=== PATIENT | male | born 1950 | race Caucasian/White ===

== ENCOUNTER 2019-08-27 06:00 | Outpatient (RCR) | payer MEDICARE, MEDICAID, SELFPAY | END 2019-09-07 00:01 | LOC: WPT 06:00 | PROVIDERS: Family Provider Family Medicine; Visit Provider Psychiatry & Neurology Neurology | DX: G61.0 Guillain-Barre syndrome (principal) | CPT/HCPCS: 97110; 97163 ==

== ENCOUNTER → 2019-12-31 08:00 | Outpatient (BNVA) | payer MEDICARE, MEDICAID, SELFPAY | PROVIDERS: Family Provider Family Medicine; PCP Family Medicine; Visit Provider Nurse Practitioner Psychiatric/Mental Health | DX: F33.41 Major depressive disorder, recurrent, in partial remission (principal); F41.8 Other specified anxiety disorders | CPT/HCPCS: 99213 ==

== ENCOUNTER 2020-05-03 14:20 | Outpatient (CLI) | payer MEDICARE, MEDICAID, SELFPAY ==
--- NOTE | 2020-05-03 14:31 | US_ITS ---
WS: [id number] ULTRASOUND RENAL TECHNIQUE: Ultrasound examination of both kidneys. CLINICAL INFORMATION: bilateral hydronephrosis COMPARISON: None. FINDINGS: Kidneys difficult to visualize bilaterally. Bilateral increased parenchymal echogenicity co nsistent with chronic medical renal disease. Mild bilateral pelvocaliectasis and hydronephrosis. Smal l amount of debris in the bladder which is otherwise normal. RIGHT: Cortical thickness: 1.8 c the m; Normal. Hydronephrosis: Mild Perinephric fluid: None. Right kidney measures: 11.3 cm x 5.5 cm x 5.6 cm. LEFT: Cortical thickness: 1.6 cm; Normal. Hydronephrosis: Mild Perinephric fluid: None. Left kidney measures: 10.7 cm x 5.3 cm x 6.3 cm. Aorta not well visualized due to bowel gas. US/US renal BI* [id number] IMPRESSION: 1. Both kidneys are difficult to visualize with mild pelvocaliectasis and hydr onephrosis. This can be further evaluated with CT abdomen pelvis. 2. Echogenic renal parenchyma likely due to chronic medical renal disease. 3. Small amount of echogenic debris within the bladder which is otherwise norm al.
== END 2020-05-03 14:21 | disposition home or self-care (01) ==
LOC: RAD 14:28
PROVIDERS: Family Provider Family Medicine; PCP Family Medicine; Visit Provider Urology
DX: N13.30 Unspecified hydronephrosis (principal); R82.81 Pyuria; N31.9 Neuromuscular dysfunction of bladder, unspecified
CPT/HCPCS: 76770; 80053; 81001; 87077; 87086; 87186

== ENCOUNTER 2020-07-26 21:32 | Inpatient (IN) | payer MEDICARE, MEDICAID, SELFPAY ==
[2020-07-26 21:35] VITALS: BP 111/57; PULSE 83; RESP 16; TEMP 35.8; O2SAT 100; BMI 27.1
--- NOTE | 2020-07-26 22:51 | P.HP_ITS ---
Providers/Chief Complaint Primary Care Provider: David Austin Chief Complaint: SOB History of Present Illness Mirza Rodrigues is a 70 year old male who has history of dementia, multiple comorbid conditions was sent to the [facility] for hypotension. 1 L normal saline given for blood pressure 80/40 which improved blood pressure 215-58, he was saturating well on 4 L nasal cannula 100% with heart rate ranging between 80-90, he was given ceftriaxone and azithromycin for possible pneumonia On arrival to our ER patient was complaining of left hip pain, right arm pain, shortness of breath and chest discomfort on coughing, he was saturating well on room air, normal hemodynamics, he is not a good historian, however he was able to tell me that he has been experiencing extreme cold, his left hip area is hu rting, and it is difficult for him to swallow food. He has been noticing productive cough and shortness of breath. I gave him grape juice, because he was extremely dehydrated, his lips were extremely dry he was not able to talk properly, however he started coughing after drinking grape juice and endorsed that he is not able to breathe, his status did not change at all. I noticed left-sided facial droop, requested CT head without contrast because of dysphagia and left-sided facial droop. I also requested left hip x-ray I called group home to get the report who endorsed that at baseline he would be alert to person, he normally eats on his own but recently has been requiring 2 person assist for ambulation, no vomiting diarrhea or falls at the group home, he was recently started on doxycycline for pneumonia on 07/24, he recently finished Keflex for UTI as well, he was tested for Covid on 07/19 which was negative, however his roommate is Covid positive, he was put in the same room a fter negative Covid test. His influenza type B came back positive, his CODE STATUS is not clearly defined, documents are stating DNR/DNI status, I called group home to clarify, they also have both DNR and full code mentioned in the records Diagnostics from the outside facility White count 5.2 Hemoglobin 10.4 Platelets 234 EKG shows sinus rhythm heart rate 86 UA: Slightly cloudy nitrites negative, trace leukocyte Estrace positive, pH 5, special gravity 1015, blood negative Sodium 131 Potassium 5.4 Bicarb 20 Creatinine 2.9 Bilirubin 8.2 Alk phos was 136 anion gap 11 BUN 83 Chloride 100 Magnesium 2.7 BNP 500 Baseline troponin 50 admission 100 Lactic acid 0.6 2-hour troponin 91 Medications at N home Patient is taking Tylenol 650 mg Zofran 4 mg every 4 as needed Loratadine 10 mg daily Ropinirole 0.25 mg daily Gabapentin 100 mg daily 3 times a day Melatonin 500 mg daily Trazodone 50 mg at bedtime Aspirin 81 mg daily DuoNebs as needed basis Lactulose 4 times daily Doxycycline 100 mg twice daily Keppra 500 mg 2 times daily Mirtazapine 30 mg bedtime Dutasteride 100 mg capsule 2 times daily Simvastatin 40 mg daily [place] 5/325 every 4 as needed Donepezil 5 mg daily Lisinopril 20 mg daily Celexa 20 mg daily Haldol 0.5 mg 2 times daily as needed Review of Systems Const: Reports: chills, change in appetite and fatigue; Denies: fever(s) Eyes: Denies: change in vision ENMT: Reports: odynophagia; Denies: throat pain Card: Reports: chest pain Resp: Reports: dyspnea GI: Reports: dysphagia; Denies: abdominal pain : Denies: flank pain Musc: Reports: joint pain Skin/Breast: Reports: lesions; Denies: new lesions Neuro: Reports: confusion and difficulty communicating thoughts Psych: Denies: anxiety Endo: Denies: polyuria Jagdish/Lymph: Denies: easy bruising All/Imm: Denies: urticaria Medications/Allergies Home Medications Medication Instructions Recorded Confirmed Last Taken Type albuterol sulfate 90 mcg/actuation 2 puff INHALATION .Q4Hrs gm 10/04/19 06/01/20 Unknown History aerosol inhaler aspirin 81 mg tablet,delayed 81 mg PO QDAY 10/04/19 06/01/20 Unknown History release docusate sodium 100 mg capsule 200 mg PO BID cap 10/04/19 06/01/20 Unknown History dutasteride 0.5 mg capsule 0.5 mg PO QDAY 10/04/19 06/01/20 Unknown History esomeprazole magnesium 40 mg 40 mg PO QDAY 10/04/19 06/01/20 Unknown History capsule,delayed release fluticasone 250 mcg-salmeterol 50 1 inh INHALATION BID 10/04/19 06/01/20 Unknown History mcg/dose blistr powdr for inhalation fluticasone propionate 50 1 spray INTRANASAL QDAY 10/04/19 06/01/20 Unknown History mcg/actuation nasal spray,suspension gabapentin 100 mg capsule 100 mg PO .QHS cap 10/04/19 06/01/20 Unknown History ipratropium bromide 0.03 % nasal 2 spray INTRANASAL TID 10/04/19 06/01/20 U nknown History spray levetiracetam 500 mg tablet 500 mg PO BID 10/04/19 06/01/20 Unknown History lisinopril 20 mg tablet 20 mg PO QDAY 10/04/19 06/01/20 Unknown History polyethylene glycol 3350 17 17 gm PO QDAY 10/04/19 06/01/20 Unknown History gram/dose oral powder simvastatin 40 mg tablet 40 mg PO QDAY 10/04/19 06/01/20 Unknown History tamsulosin 0.4 mg capsule 0.4 mg PO QDAY 10/04/19 06/01/20 Unknown History citalopram 20 mg tablet 20 mg PO .morning #30 tab 12/31/19 05/03/20 Unknown Rx divalproex 500 mg tablet,delayed 500 mg PO BID #60 tab 12/31/19 06/01/20 Unknown Rx release haloperidol 0.5 mg tablet 0.5 mg PO BID PRN #60 tab 12/31/19 05/03/20 Unknown Rx melatonin 5 mg capsule 10 mg PO .bedtime #60 cap 12/31/19 06/01/20 Unknown Rx mirtazapine 15 mg tablet 15 mg PO .QHS #30 tab 12/31/19 06/01/20 Unknown Rx trazodone 50 mg tablet 25 mg PO .bedtime PRN #30 tab 12/31/19 06/01/20 Unknown Rx acetaminophen 650 mg 650 mg PO Q8H PRN 06/01/20 06/01/20 Unknown History tablet,extended release bepotastine besilate 1.5 % eye 1 drop OPHTHALMIC (EYE) ONCE ml 06/01/20 06/01/20 Unknown History drops cholecalciferol (vitamin D3) 1,250 50,000 unit PO .Weekly cap 06/01/20 06/01/20 Unknown History mcg (50,000 unit) capsule hydrocodone 5 mg-acetaminophen 325 1 tab PO DAILY PRN tab 06/01/20 06/01/20 Unknown History mg tablet lactulose 10 gram/15 mL oral 10 gm PO DAILY PRN 06/01/20 06/01/20 Unknown History solution nut. tx, spec. form, See Rx Instructions PO TID ml 06/01/20 06/01/20 Unknown History lac-free,iron-fos 0.08 gram-2 kcal/mL oral liquid prednisone 2.5 mg tablet 2.5 mg PO .COMPLEX 06/01/20 06/01/20 Unknown History vits no.126-ferrous fum 1 tab PO DAILY tab 06/01/20 06/01/20 Unknown History 28 mg iron-folic acid 800 mcg tablet ropinirole 0.25 mg tablet 0.25 mg PO DAILY 06/01/20 06/01/20 Unknown History Allergies Allergy/AdvReac Type Severity Reaction Status Date / Time metoprolol Allergy Unknown Unknown Unverified 10/04/19 14:42 PFSH Acute PFSH: Medical History (Updated 07/27/20 @ 00:53 by Krista Rehman MD) Bilateral hydronephrosis Chronic kidney disease COPD (chronic obstructive pulmonary disease) Hydronephrosis Hypertension Iron deficiency anemia Major depressive disorder, recurrent, in partial remission Neurogenic bladder Peptic ulcer disease Renal mass, right Small bowel obstruction Vitamin D deficiency Surgical History History of colostomy reversal History of esophagogastroduodenoscopy (EGD) History of total left hip replacement History of transurethral resection of prostate Hx of appendectomy Family History Father , AT AGE 49 PA No problems noted. Mother , AT AGE 58 CVA No problems noted. Sister Cancer STOMACH Social History (Updated 07/27/20 @ 00:54 by Krista Rehman MD) Smoking and tobacco status: current every day smoker Alcohol intake: unknown Adopted: No Caregiver/support person: No Housing: Other Details: [facility] Marital status: Single Current occupational status: disabled Vitals/I&O/Wt Last Vital Signs Temp 96.5 F L 07/26/20 21:35 Pulse 83 07/26/20 21:35 Resp 16 07/26/20 21:35 BP 111/57 07/26/20 21:35 Pulse Ox 100 11/18/20 21:35 Weight last 48 hrs Weight 90.718 kg Physical Exam Narrative: EXAM NARRATIVE: Patient was in semi-Cruz position when entered the room He was saturating well on room air Bedside swallow evaluation failed Left-sided facial droop Upper extremity story writer normal Patient is complaining of left hip pain No active hematoma noted Lower symmetry no edema gangrene or ulcer Extremely dehydrated malnourished appearance EOMI, PERRLA GCS 15 able to protect airways Patient is complaining of right arm pain, left hip pain and pain in his chest after coughing, chest pain not reproducible Abdomen soft nontender no signs of peritonitis No acute respiratory distress Lower extremity strength 2- 3/5 No sign of ischemia gangrene of lower extremity A&P Assessment and plan (1) Community acquired pneumonia: Status: Acute (2) Dysphagia: Status: Acute (3) Acute kidney injury superimposed on chronic kidney disease: Status: Acute (4) Dehydration: Status: Acute Additional A&P Information Community-acquired pneumonia Worsening infiltrate evident on x-ray report done at [facility] Covid antigen test is negative Not septic at the time of admission We will start him on ceftriaxone and azithromycin, he was taking doxycycline for last few days as well Check urine antigen No need of blood culture at this point DuoNeb every 4 as needed Dysphagia with left-sided facial droop EKG sinus rhythm, no history of A. fib, Will obtain CT head without contrast Not a candidate of TPA, NIH 2, Not a candidate to get CTA head and neck because of abnormal creatinine I will start him on aspirin, Plavix, statin Swallow evaluation in the morning Left hip pain Patient had open reduction internal fixation of left hip after femoral neck fracture Obtain hip x-ray as she is tender on slight palpation of left hip., No active bruising or hematoma noted Morphine analgesia Bowel regimen Acute on chronic kidney injury Patient is extremely dehydrated, Dried mucosal membranes I will start him on D5 half-normal saline fluid resuscitation Hold lisinopril, Sainz catheter draining concentrated urine, this most likely secondary to dehydration Hypotension: Responded very well to fluid resuscitation, current blood pressure in 111mmhg range He is not septic Chronic hypoxic respiratory failure I was told he is requiring 4 L nasal cannula at the other facility, at the time of my evaluation he was saturating well on room air No acute exacerbation History of dementia: Continue antipsychotic agents, I will hold gabapentin, Seroquel, mirtazapine because of RADHA I reviewed his records, documentation is available for DNR/DNI however when I called the group home they have full code and DNR both mentioned in his records, kindly reevaluate in the morning, currently I am going with written document, because of patient's intellectual disability I am not able to clarify with him N.p.o. DVT prophylaxis Heparin Attestations Medical Necessity Statement*: Anticipating discharge in less than 48 hours currently need antibiotic for community-acquired pneumonia, IV fluid hydration for dehydration and speech evaluation for dysphagia Time Spent in Patient Care: (>than 50% of time spent in counselling and/or direct pt care on unit) . 50mins Coding Level of Care Code Acute Head Of Operation And Logistics for Inag Fwd Diagnoses Community acquired pneumonia J18.9 Dysphagia R13.10 Acute kidney injury superimposed on chronic kidney disease N17.9; N18.9 Dehydration E86.0
[2020-07-27] VITALS (11 sets, daily range): BP systolic 101–133; BP diastolic 50–71; PULSE 84–92; RESP 12–22; TEMP 36.4–36.9; O2SAT 92–100
[2020-07-27 00:10] LABS: SARS Covid-2 Antigen Negative (Negative)
--- NOTE | 2020-07-27 00:16 | XR_ITS ---
WS: [id number] Exam: XR hip LT 2-3V wo/w pel* [id number] Date/Time of Exam: 07/27/2020 12:22 AM Reason For Exam: left hip pain Comparison 11/25/2012. A left hip prosthesis is in place without evidence of fracture or loosening. The acetabular cup has m igrated medially and has barely eroded through the cortical surface of the medial wall the acetabulum . Diffuse osteopenia noted. Soft tissues are unremarkable. Healed fracture of the greater trochanter noted. XR/XR hip LT 2-3V wo/w pel* [id number] IMPRESSION: 1. Left hip prosthesis in place without fracture or loosening however there has been medial migration of the acetabular cup through the medial wall of the mihaela tabulum.
--- NOTE | 2020-07-27 00:16 | CTR_ITS ---
PROCEDURE INFORMATION: Exam: CT Head Without Contrast Exam date and time: 07/27/2020 12:22 AM Age: 70 years old Clinical indication: Weakness, facial; Additional info: Leftfacial droop TECHNIQUE: Imaging protocol: Computed tomography of the head without contrast. Radiation optimization: All CT scans at this facility use at least one of these dose optimization techniques: automated exposure control; mA and/or kV adjustment per patient size (includes targeted exams where dose is matched to clinical indication); or iterative reconstruction. COMPARISON: CT head wo con* [id number] 06/06/2015 6:09 PM RADIATION DOSE METRICS: Total DLP (mGy-cm): 1942.41 FINDINGS: Brain: There is diffuse cerebral atrophy and chronic microvascular white matter disease. There is no acute intracranial hemorrhage. Cerebral ventricles: There is no significant ventricular dilation. The basal cisterns are unremarkable. Bones/joints: The calvarium is intact. Paranasal sinuses: The paranasal sinuses are clear. Mastoid air cells: Trace right mastoid effusion. Left mastoid air cells are clear. Soft tissues: The visible extracranial soft tissues are unremarkable. CT/CT head wo con* [id number] IMPRESSION: No acute findings. Radiation Dose CTDIVOL = (mGy): DLP = 1942.41 (mGy-cm)
[2020-07-27 01:55] LABS: Phenytoin Dilantin 0.8 ug/mL (10-20)
--- NOTE | 2020-07-27 05:18 | PC.NURSE ---
floor admit delayed due to hospitalist requedting additional testing to rule out CVA
[2020-07-27 06:47] LABS: Troponin T (5th) Once 82 ng/L (0-15)
[2020-07-27] MEDS: dextrose 5%-sod chloride 0.45% 1,000 ML 75 ML IV ×2 (07:08→22:48)
[2020-07-27] MEDS: cefTRIAXone 1,000 MG in sodium chloride 0.9% (plus) 50 ML 100 MG IV (07:08)
[2020-07-27] MEDS: heparin 5,000 unit/mL INJ 1 mL 5000 UNIT SUBCUT ×3 (07:11→22:39)
--- NOTE | 2020-07-27 07:57 | XR_ITS ---
WS: [id number] Exam: XR chest 1V portable [id number] Date/Time of Exam: 07/27/2020 8:03 AM Reason For Exam: sob Comparison 01/08/2018. There is infiltrate in the medial segment of the right middle lobe suspicious for pneumonia. The lung s are hyperinflated. The left lung is clear. No pleural effusions visualized. Normal cardiomediastina l silhouette and regional bony elements. Surgical clips noted in the region of the GE junction. XR/XR chest 1V portable [id number] IMPRESSION: 1. Infiltrate in the medial segment of the right middle lobe suspicious for pne umonia. 2. Pulmonary hyperinflation which may indicate obstructive lung disease.
--- NOTE | 2020-07-27 07:58 | ECG_ITS ---
[facility] Test Date: 2020-07-27 Pat Name: Mirza Rodrigues Department: Room: 259 Gender: Male Architecture Manager: : 1950 Requested By: Gerry Frazier Order Number: [id number] Mitzi MD: Edson Arambula M.D. Measurements Intervals [place] Rate: 89 P: 85 MI: 171 QRS: 42 QRSD: 84 T: 76 QT: 350 QTc: 428 Interpretive Statements SINUS RHYTHM Compared to ECG 01/08/2018 15:53:42 Sinus bradycardia no longer present Electronically Signed On 07-27-2020 22:00:08 LICENSED LAND SURVEYOR by Edson Arambula M.D. [id number]
[2020-07-27] MEDS: albuterol 8 gm MDI 2 PUFF INHALATION ×3 (08:16→20:04)
[2020-07-27] MEDS: atorvastatin 40 mg Tablet 20 MG PO (09:30)
[2020-07-27] MEDS: ropinirole 0.25 mg Tablet PO (09:30)
[2020-07-27] MEDS: azithromycin 250 mg Tablet 500 MG PO (09:30)
[2020-07-27] MEDS: tamsulosin 0.4 mg Capsule PO (09:31)
[2020-07-27] MEDS: clopidogrel 75 mg Tablet PO (09:31)
[2020-07-27] MEDS: aspirin 81 mg EC Tablet PO (09:31)
[2020-07-27] MEDS: pantoprazole DR 40 mg Tablet PO (09:31)
[2020-07-27] MEDS: levETIRAcetam 500 mg Tablet PO ×2 (09:31→18:28)
[2020-07-27 09:39] LABS: Basophils % 0.5 %; Eosinophils # 0.1 10^3/uL (0.0-0.8); Eosinophils % 1.8 %; Hematocrit 34.5 % (42.0-52.0); Hemoglobin 10.6 g/dL (11.7-16.6); Lymphocytes # 0.7 10^3/uL (0.8-4.8); Lymphocytes % 15.7 %; Mean Corpuscular HGB Conc 30.7 g/dL (30.0-36.0); Mean Corpuscular Hemoglobin 28.3 pg (28.0-34.0); Mean Platelet Volume 9.4 fL (7.4-10.4); Monocytes # 0.5 10^3/uL (0.2-0.9); Monocytes % 10.9 %; Neutrophils # 2.94 10^3/uL (1.8-7.7); Nucleated Red Blood Cells % 0 %; Platelet Count 297 10^3/cmm (130-400); Red Blood Count 3.75 10^6/uL (4.1-5.3); Red Cell Distribution Width 14.6 % (12.1-15.1); White Blood Count 4.4 10^3/uL (4.0-10.0)
[2020-07-27 09:58] LABS: D Dimer 1.12 ug/mIFEU (0-0.59)
[2020-07-27 10:04] LABS: Troponin(5th) Baseline 85 ng/L (0-15)
[2020-07-27 10:11] LABS: Procalcitonin 0.31 ng/mL (0-0.5)
[2020-07-27 10:22] LABS: Alanine Aminotransferase 28 U/L (0-41); Alkaline Phosphatase 134 IU/L (40-130); Anion Gap 19.1 (5-19); Aspartate Amino Transferase 48 U/L (0-40); Blood Urea Nitrogen 69 mg/dL (8-23); C Reactive Protein 41.4 mg/L (0.0-4.9); Calcium 8.3 mg/dL (8.5-10.5); Carbon Dioxide 14 mmol/L (22-29); Chloride 107 mmol/L (98-107); Globulin 3.1 g/dL (1.3-4.6); Glucose 95 mg/dL (65-115); Magnesium 2.5 mg/dL (1.7-2.3); Osmolality Calculated 300 mOsm/kg (285-295); Potassium 5.1 mmol/L (3.5-5.1); Sodium 135 mmol/L (136-145); Total Bilirubin 0.2 mg/dL (0.15-1.2); Total Protein 6.1 g/dL (6.6-8.7)
--- NOTE | 2020-07-27 11:56 | USCV_ITS ---
Mirza Rodrigues Age: 70 Gender: M : 1950 Exam Date: 07/27/2020 13:14 Ordering Phys: Gerry Frazier MD Technologist: Yolette Kim Exam Location: [facility] Indication: NSTEMI BP: 114 / 69 HR: 82 Rhythm: Sinus Technical Quality: Very technically difficult study MEASUREMENTS (Male / Female) Normal Values 2D ECHO LV Diastolic Diameter PLAX 2.0 cm 4.2 - 5.9 / 3.9 - 5.3 cm LV Systolic Diameter PLAX 2.1 cm LV Chamber Size 3.2 cm IVS Diastolic Thickness 1.6 cm 0.6 - 1.0 / 0.6 - 0.9 cm IVS Systolic Thickness 1.2 cm LVPW Diastolic Thickness 1.5 cm 0.6 - 1.0 / 0.6 - 0.9 cm LVPW Systolic Thickness 1.7 cm RV Chamber Size 3.3 cm LVOT Diameter 2.0 cm LV Ejection Fraction 2D Teich 7.6 % LV Ejection Fraction MOD 2C 56.0 % LV Ejection Fraction 2C AL 54.3 % LA Diameter 3.8 cm LA Width 3.6 cm LA Height 3.8 cm RA Width 4.1 cm RA Height 4.1 cm M-MODE LV Diastolic Diameter MM 5.6 cm 4.2 - 5.9 / 3.9 - 5.3 cm LV Systolic Diameter MM 3.1 cm LV Ejection Fraction MM Teich 76.4 % IVS Diastolic Thickness MM 0.8 cm 0.6 - 1.0 / 0.6 - 0.9 cm IVS Systolic Thickness MM 1.4 cm LVPW Diastolic Thickness MM 0.9 cm 0.6 - 1.0 / 0.6 - 0.9 cm LVPW Systolic Thickness MM 1.5 cm Aortic Annulus Diameter 3.3 cm LA Ao Ratio MM 1.1 MV E Point Septal Separation 1.0 cm DOPPLER AV Peak Velocity 126.0 cm/s LVOT Peak Velocity 111.0 cm/s AV Area Cont Eq vti 3.1 cm squared AV Area Cont Eq pk 2.9 cm squared MV Area PHT 2.7 cm squared Mitral E to A Ratio 0.9 MV E' Velocity 46.5 cm/s Mitral E to MV E' Ratio 6.0 Mitral E to LV E' Lateral Ratio 5.5 Mitral E to LV E' Septal Ratio 6.8 TR Peak Velocity 180.3 cm/s TR Peak Gradient 13.0 mmHg TV Peak E Velocity 38.0 cm/s Right Atrial Pressure 3.0 mmHg Pulmonary Artery Systolic Pressu 16.0 mmHg PV Peak Velocity 71.0 cm/s RV Acceleration Time 0.2 s RV Ejection Time 0.4 s RV AcT/ET 0.4 FINDINGS Left Ventricle Normal left ventricular size and systolic function, EF 58 %. No regional wall motion abnormalities. Mild left ventricular hypertrophy. Grade II/IV diastolic dysfunction, moderately elevated filling pressures. Right Ventricle The right ventricle is normal in size and function. Right Atrium The right atrium is normal in size. Left Atrium The left atrium is normal in size. Mitral Valve Thickened mitral valve. Aortic Valve Thickened aortic valve. Tricuspid Valve No gross abnormalities noted . Pulmonic Valve No gross abnormalities noted Pericardium Normal pericardium without effusion. Aorta Normal ascending aorta dimension. CONCLUSIONS Normal left ventricular size and systolic function, EF 58 %. No regional wall motion abnormalities. Mild left ventricular hypertrophy. Grade II/IV diastolic dysfunction, moderately elevated filling pressures. Minimally thickened aortic and mitral valves There is no pericardial effusion. There are no intracardiac masses. Dr Edson Arambula MD FACC (Electronically Signed) Final Date: 27 July 2020 21:33 S
--- NOTE | 2020-07-27 11:56 | US_ITS ---
WS: [id number] RENAL ULTRASOUND HISTORY: ngoc COMPARISON: 05/03/2020 TECHNIQUE: 2-D and color Doppler imaging of the kidney submitted. Right kidney: 10.6 cm x 4.5 cm x 4.5 cm. Focal thinning cortex of the mid upper kidney. No hydronephrosis is identified. No solid mass. Echoge nicity is slightly increased. Left kidney: 10.6 cm x 6.4 cm x 5.1 cm. Normal size kidney. There is increased echogenicity throughout the kidney. The cortex is lobulated an d thickened. The LEFT kidney is difficult to see. Suspect mild hydronephrosis on the LEFT. Aorta: Not visualized. Urinary Bladder: Sainz catheter present in a nondistended bladder. Cholelithiasis. US/US renal BI* [id number] IMPRESSION: 1. Mild persistent LEFT hydronephrosis. 2. Bilateral chronic medical renal disease with areas of scarring and renal at rophy as above. Similar to the prior study.
[2020-07-27 12:36] LABS: Troponin 5 2HR 74.05 ng/L (0-15)
[2020-07-27 12:37] LABS: Troponin 5 2HR Delta -10.95 ABS# (0-10)
--- NOTE | 2020-07-27 13:54 | PM.PN ---
Subjective Subjective: Interval history: This morning patient was examined, he is laying in bed, on 4 L, he is alert, awake, does follow commands, is a bit agitated during my examination, pulls away multiple times, when asking what is wrong, he tells me that his abdomen is hurting him, does not localize where the pain is, does not really answer any other questions. During my examination, I cannot see a facial droop, no slurring of his speech, he does spontaneously move upper and lower extremities, is agitated when I try to do a full neurologic exam, will not follow examination I spoke to [facility], [place], they tell me that at baseline patient is a 1 person assist, he does recognize some familiar faces, does have baseline developmental disability, can carry a conversation sometimes, has episodes of confusion. Recently patient has had a decline, poor appetite, fatigue, malaise, no recent falls, no recent injuries. long-term tells me that recently patient has had significant hypotensive episode, his blood pressures have been low, he is required multiple fluid boluses that as outpatient, they cannot exactly figure out why his blood pressures are low. In addition they tell me that he has worsening renal function, that they are keeping an eye on it. Patient has no particular complaints to them, no recent fevers, he did test flu be positive, was on Tamiflu at one point. Vitals/I&O/Wt Last Vital Signs Temp 98.3 F 07/27/20 12:00 Pulse 91 07/27/20 12:00 Resp 17 07/27/20 12:00 BP 116/53 07/27/20 12:00 Pulse Ox 100 07/27/20 12:00 07/26/20 07/27/20 07/27/20 22:59 06:59 14:59 Output Total 350 / 350 Balance -350 / -350 Weight last 48 hrs Weight 90.718 kg Physical Exam Const: COMMON NORMALS: no acute distress GENERAL APPEARANCE: ill appearing ORIENTATION/CONSCIOUSNESS: Yes awake; not oriented to person, not oriented to place and not oriented to time HENMT: COMMON NORMALS: normocephalic HEAD & SCALP: normocephalic Neck/C-Spine: COMMON NORMALS: no JVD Resp: COMMON NORMALS: normal respiratory effort, No retractions, No use of accessory muscles and clear to auscultation bilaterally AUSCULTATION: clear to auscultation bilaterally Cardio: COMMON NORMALS: no JVD, regular rate, regular rhythm, S1 normal heart sound present and S2 normal heart sound present RATE: regular rate RHYTHM: regular rhythm HEART SOUNDS: S1 normal heart sound present and S2 normal heart sound present GI: COMMON NORMALS: Normal to inspection, nondistended, normoactive bowel sounds present, Soft to palpation, non-tender, No hepatosplenomegaly present, no masses and no bruits PALPATION: Yes Soft to palpation and Yes No hepatosplenomegaly present Extremity: COMMON NORMALS: capillary refill normal, no clubbing, cyanosis or edema, no calf tenderness and no pedal edema Neuro: SENSORIUM/ORIENTATION: No oriented to person, No oriented to place and No oriented to time Psych: COMMON NORMALS: mental status grossly normal Data : 07/27/20 09:18 07/27/20 09:18 Micro: Microbiology 07/27/20 09:54 Legionella Urinary Antigen - Final Urine,Voided Bacterial Antigens - Final 07/27/20 09:23 Blood Culture - Preliminary Blood SPECIMEN COLLECTED 07/27/20 09:18 Blood Culture - Preliminary Blood SPECIMEN COLLECTED A&P Assessment and plan (1) Community acquired pneumonia: Status: Acute (2) Dysphagia: Status: Acute (3) Acute kidney injury superimposed on chronic kidney disease: Status: Acute (4) Dehydration: Status: Acute Additional A&P Information Community-acquired pneumonia Worsening infiltrate evident on x-ray report done at [facility] Covid antigen test is negative, will order Covid PCR Not septic at the time of admission Continue Rocephin azithromycin Blood cultures, sputum cultures Check urine antigen DuoNeb every 4 as needed Dysphagia, no left facial droop noted EKG sinus rhythm, no history of A. fib, CT head negative for acute findings Not a candidate of TPA, NIH 2, Not a candidate to get CTA head and neck because of abnormal creatinine Continue aspirin, statin, hold off on Plavix Swallow evaluation in the morning, neurochecks Left hip pain Patient had open reduction internal fixation of left hip after femoral neck fracture X-ray of the left hip:Left hip prosthesis in place without fracture or loosening however there has been medial migration of the acetabular cup through the medial wall of the acetabulum. Morphine analgesia Bowel regimen Acute on chronic kidney injury -Has chronic kidney disease, creatinine anywhere between 2 and 3 -Creatinine 2.3 today Continue on D5 half-normal saline fluid resuscitation Hold lisinopril, Order renal ultrasound Sainz catheter draining concentrated urine, this most likely secondary to dehydration Hypotension: Responded very well to fluid resuscitation, current blood pressure in 111mmhg range He is not septic -will order am cortisol, tsh Chronic hypoxic respiratory failure I was told he is requiring 4 L nasal cannula at the other facility, at the time of my evaluation he was saturating well on room air No acute exacerbation History of dementia: Continue antipsychotic agents, I will hold gabapentin, Seroquel, mirtazapine because of RADHA NSTEMI: -82, delta negative -no ekg st t wave changes -Order cardiac echocardiogram DNR/DNI Currently n.p.o. advance diet as tolerated DVT prophylaxis Heparin Attestations Medical Necessity Statement*: She requires hospitalization for COVID-19 pneumonia, dehydration,nstemi Coding Level of Care Code Acute Drawing Checker for [facility] Fw Diagnoses Community acquired pneumonia J18.9 Dysphagia R13.10 Acute kidney injury superimposed on chronic kidney disease N17.9; N18.9 Dehydration E86.0
--- NOTE | 2020-07-27 13:58 | ECG_ITS ---
[facility] Test Date: 2020-07-27 Pat Name: Mirza Rodrigues Department: Room: 259 Gender: Male Relief Charge Nurse: : 1950 Requested By: Gerry Frazier Order Number: [id number] Mitzi MD: Edson Arambula M.D. Measurements Intervals [place] Rate: 93 P: 85 [place]: 150 QRS: 53 QRSD: 82 T: 78 QT: 333 QTc: 416 Interpretive Statements SINUS RHYTHM Compared to ECG 07/27/2020 08:20:36 No significant changes Electronically Signed On 07-27-2020 22:04:43 RELOCATION MANAGER by Edson Arambula M.D. [id number]
--- NOTE | 2020-07-27 14:12 | CTR_ITS ---
PROCEDURE INFORMATION: Exam: CT Abdomen And Pelvis Without Contrast Exam date and time: 07/27/2020 4:06 PM Age: 70 years old Clinical indication: Abdominal pain; Generalized; Prior surgery; Surgery type: Gb; Additional info: Abominal pain TECHNIQUE: Imaging protocol: Computed tomography of the abdomen and pelvis without contrast. Radiation optimization: All CT scans at this facility use at least one of these dose optimization techniques: automated exposure control; mA and/or kV adjustment per patient size (includes targeted exams where dose is matched to clinical indication); or iterative reconstruction. COMPARISON: CT abdomen pelvis wo con [id number] 08/10/2017 11:31 PM RADIATION DOSE METRICS: Total DLP (mGy-cm): 411.66 FINDINGS: Tubes, catheters and devices: A balloon bladder catheter is present. Lungs: Nonspecific bibasilar consolidation left greater than right is present, consistent with atelectasis, edema, or pneumonia. Pleural space: There is trace left pleural fluid. Liver: Unremarkable.No mass. Gallbladder and bile ducts: The history indicates prior cholecystectomy but a partially collapsed gallbladder is identified with a few layering stones similar to the prior exam. No findings of cholecystitis or duct dilatation. Pancreas: Normal. No ductal dilation. Spleen: Normal. No splenomegaly. Adrenal glands: Normal. No mass. Kidneys and ureters: There is punctate nonobstructive left nephrolithiasis. There is no evidence of hydronephrosis. There is a 1.4 cm hyperdense exophytic nodule upper pole left kidney that is smaller since the prior exam where it measured 1.7 cm. This has Hounsfield characteristics compatible with a hemorrhagic cyst and no follow-up is necessary. Stomach and bowel: There is no evidence of intestinal perforation or obstruction. There is diffuse small bowel wall thickening, consistent with infectious, ischemic, or inflammatory enteritis. There is mildly excessive colonic stool content. There is no evidence of colitis/diverticulitis. Appendix: No evidence of appendicitis. Intraperitoneal space: Unremarkable. No free air. No significant fluid collection. Vasculature: Unremarkable.No abdominal aortic aneurysm. Lymph nodes: Unremarkable.No enlarged lymph nodes. Urinary bladder: The bladder is obscured by arthroplasty artifact. Reproductive: The prostate demonstrates nonspecific parenchymal calcifications. Bones/joints: There is a satisfactory appearance of the left hip arthroplasty. The bones are osteopenic. There is unchanged fracture deformity of L4. No acute bony abnormality. Soft tissues: Unremarkable. Other findings: Postoperative clips are noted at the gastroesophageal junction. CT/CT abdomen pelvis wo con [id number] IMPRESSION: 1. Nonspecific bibasilar consolidation left greater than right is present, consistent with atelectasis, edema, or pneumonia. 2. There is diffuse small bowel wall thickening, consistent with infectious, ischemic, or inflammatory enteritis. No evidence of colitis or bowel obstruction. 3. Smaller hyperdense lesion upper pole left kidney with Hounsfield unit characteristics of a hemorrhagic cyst. No follow-up is necessary. COMMENTS: Consistent with the [employer]'s Incidental Findings Committee white paper (J Am Ivonne Radiol 2018): Any incidental renal lesion less than 1 cm or classified as too small to characterize, or any incidental cystic renal lesion characterized as simple-appearing, is likely benign. No follow-up imaging is recommended for these lesions per consensus recommendations based on imaging criteria. Radiation Dose CTDIVOL = (mGy): DLP = 411.66 (mGy-cm)
--- NOTE | 2020-07-27 14:47 | PC.RESP ---
Smoking Cessation and Pulmonary Rehab information sent to patient.
[2020-07-28] VITALS (17 sets, daily range): BP systolic 127–168; BP diastolic 74–81; PULSE 87–98; RESP 15–18; TEMP 36.4–36.8; O2SAT 92–97
[2020-07-28] MEDS: albuterol 8 gm MDI 2 PUFF INHALATION ×6 (00:50→19:58)
[2020-07-28] MEDS: cefTRIAXone 1,000 MG in sodium chloride 0.9% (plus) 50 ML 100 MG IV (04:44)
[2020-07-28] MEDS: heparin 5,000 unit/mL INJ 1 mL 5000 UNIT SUBCUT ×3 (04:50→21:23)
--- NOTE | 2020-07-28 05:33 | PC.NURSE ---
Shift summary Patient slept most of the night, waking only for medication and vitals. He spoke very little but was easy to wake when speaking to him. His vitals were good throughout the night with no fever.
[2020-07-28 06:22] LABS: Basophils % 0.6 %; Eosinophils # 0.1 10^3/uL (0.0-0.8); Eosinophils % 2.2 %; Hematocrit 34.6 % (42.0-52.0); Hemoglobin 10.5 g/dL (11.7-16.6); Lymphocytes # 0.7 10^3/uL (0.8-4.8); Lymphocytes % 13.4 %; Mean Corpuscular HGB Conc 30.3 g/dL (30.0-36.0); Mean Corpuscular Hemoglobin 28.1 pg (28.0-34.0); Mean Corpuscular Volume 92.5 fL (80-94); Mean Platelet Volume 9.5 fL (7.4-10.4); Monocytes # 0.6 10^3/uL (0.2-0.9); Neutrophils # 3.48 10^3/uL (1.8-7.7); Neutrophils % 68.6 %; Nucleated Red Blood Cells % 0 %; Platelet Count 337 10^3/cmm (130-400); Red Blood Count 3.74 10^6/uL (4.1-5.3); Red Cell Distribution Width 14.7 % (12.1-15.1); White Blood Count 5.1 10^3/uL (4.0-10.0)
[2020-07-28 06:41] LABS: Alanine Aminotransferase 29 U/L (0-41); Albumin Level 3.1 g/dL (3.5-5.2); Alkaline Phosphatase 143 IU/L (40-130); Anion Gap 10.9 (5-19); Aspartate Amino Transferase 52 U/L (0-40); Blood Urea Nitrogen 51 mg/dL (8-23); Calcium 8.5 mg/dL (8.5-10.5); Carbon Dioxide 21 mmol/L (22-29); Chloride 112 mmol/L (98-107); Globulin 3.3 g/dL (1.3-4.6); Glucose 99 mg/dL (65-115); Magnesium 2.4 mg/dL (1.7-2.3); Osmolality Calculated 302 mOsm/kg (285-295); Potassium 4.9 mmol/L (3.5-5.1); Sodium 139 mmol/L (136-145); Total Bilirubin 0.2 mg/dL (0.15-1.2); Total Protein 6.4 g/dL (6.6-8.7)
[2020-07-28 06:43] LABS: Thyroid Stimulating Hormone 1.48 uIU/mL (0.27-4.20)
[2020-07-28 06:55] LABS: Cortisol Random 15.75 ug/mL (2.47-19.5)
[2020-07-28] MEDS: tamsulosin 0.4 mg Capsule PO (08:08)
[2020-07-28] MEDS: azithromycin 250 mg Tablet 500 MG PO (08:09)
[2020-07-28] MEDS: levETIRAcetam 500 mg Tablet PO ×2 (08:09→17:54)
[2020-07-28] MEDS: ropinirole 0.25 mg Tablet PO (08:09)
[2020-07-28] MEDS: atorvastatin 40 mg Tablet 20 MG PO (08:10)
[2020-07-28] MEDS: aspirin 81 mg EC Tablet PO (08:10)
[2020-07-28] MEDS: pantoprazole DR 40 mg Tablet PO (08:10)
[2020-07-28] MEDS: dutasteride 0.5 mg Capsule PO (08:18)
[2020-07-28 12:02] LABS: Coronavirus Lab Test PTC Negative
[2020-07-28] MEDS: dextrose 5%-sod chloride 0.45% 1,000 ML 75 ML IV (12:45)
--- NOTE | 2020-07-28 13:10 | PM.CONSULT ---
Providers/Reason For Consult Consulting Physican/Specialty*: hospitalist Reason for Consult*: left hip pain Attending Physician: Gerry Frazier MD Primary Care Provider: David Austin History of Present Illness History of Present Illness Mirza Rodrigues is a 70 year old male who has history of dementia, multiple comorbid conditions was sent to the [facility] for hypotension. 1 L normal saline given for blood pressure 80/40 which improved blood pressure 215-58, he was saturating well on 4 L nasal cannula 100% with heart rate ranging between 80-90, he was given ceftriaxone and azithromycin for possible pneumonia On arrival to our ER patient was complaining of left hip pain, right arm pain, shortness of breath and chest discomfort on coughing, he was saturating well on room air, normal hemodynamics, he is not a good historian, however he was able to tell me that he has been experiencing extreme cold, his left hip area is hurting, and it is difficult for him to swallow food. He has been noticing productive cough and shortness of breath. I gave him grape juice, because he was extremely dehydrated, his lips were extremely dry he was not able to talk properly, however he started coughing after drinking grape juice and endorsed that he is not able to breathe, his status did not change at all. I noticed left-sided facial droop, requested CT head without contrast because of dysphagia and left-sided facial droop. I also requested left hip x-ray I called [facility] to get the report who endorsed that at baseline he would be alert to person, he normally eats on his own but recently has been requiring 2 person assist for ambulation, no vomiting diarrhea or falls at the [facility], he was recently started on doxycycline for pneumonia on 07/24, he recently finished Keflex for UTI as well, he was tested for Covid on 07/19 which was negative, however his roommate is Covid positive, he was put in the same room after negative Covid test. His influenza type B came back positive, his CODE STATUS is not clearly defined, documents are stating DNR/DNI status, I called [facility] to clarify, they also have both DNR and full code mentioned in the records I was consulted for Left hip pain Review of Systems Narrative: General ROS: negative for weight changes, fever ENT ROS: negative for nasal congestion, drainage or bleeding, sore throat, dysphagia or ear pain Eyes: PERRL Hematological and Lymphatic ROS: negative for swollen glands or abnormal bleeding Endocrine ROS: negative for polyuria/polydpsia or new changes in weight Respiratory ROS: negative for cough, shortness of breath, or wheezing Cardiovascular ROS: negative for chest pain or dyspnea on exertion Gastrointestinal ROS: negative for reflux, abdominal pain, change in bowel habits, or black or bloody stools Musculoskeletal ROS: negative for back pain, neck pain, or joint pain or swelling except for current problem Neurological ROS: negative for TIA or stoke symptoms Skin: no rashes Meds/Allergies Home Medications and Allergies Home Medications Medication Instructions Recorded Confirmed Last Taken Type albuterol sulfate 90 mcg/actuation 2 puff INHALATION Q4H gm 10/04/19 07/27/20 Unknown History aerosol inhaler aspirin 81 mg tablet,delayed 81 mg PO DAILY 10/04/19 07/27/20 Unknown History release docusate sodium 100 mg capsule 200 mg PO BID cap 10/04/19 07/27/20 Unknown History dutasteride 0.5 mg capsule 0.5 mg PO DAILY 10/04/19 07/27/20 Unknown History esomeprazole magnesium 40 mg 40 mg PO DAILY 10/04/19 07/27/20 Unknown History capsule,delayed release fluticasone 250 mcg-salmeterol 50 1 inh INHALATION BID 10/04/19 07/27/20 Unknown History mcg/dose blistr powdr for inhalation gabapentin 100 mg capsule 100 mg PO TID cap 10/04/19 07/27/20 Unknown History ipratropium bromide 0.03 % nasal 2 spray INTRANASAL TID PRN 10/04/19 07/27/20 Unknown History spray levetiracetam 500 mg tablet 500 mg PO BID 10/04/19 07/27/20 Unknown History polyethylene glycol 3350 17 17 gm PO DAILY PRN 10/04/19 07/27/20 Unknown History gram/dose oral powder simvastatin 40 mg tablet 40 mg PO DAILY 10/04/19 07/27/20 Unknown History tamsulosin 0.4 mg capsule 0.4 mg PO DAILY 10/04/19 07/27/20 Unknown History divalproex 500 mg tablet,delayed 500 mg PO BID #60 tab 12/31/19 07/27/20 Unknown Rx release melatonin 5 mg capsule 10 mg PO .bedtime #60 cap 12/31/19 07/27/20 Unknown Rx trazodone 50 mg tablet 25 mg PO .bedtime PRN #30 tab 12/31/19 07/27/20 Unknown Rx acetaminophen 650 mg 650 mg PO Q4H PRN 06/01/20 07/27/20 Unknown History tablet,extended release bepotastine besilate 1.5 % eye 1 drop OPHTHALMIC (EYE) DAILY ml 06/01/20 07/27/20 Unknown History drops cholecalciferol (vitamin D3) 1,250 50,000 unit PO Q7D cap 06/01/20 07/27/20 Unknown History mcg (50,000 unit) capsule lactulose 10 gram/15 mL oral 10 gm PO DAILY PRN 06/01/20 07/27/20 Unknown History solution nut. tx, spec. form, See Rx Instructions PO TID ml 06/01/20 07/27/20 Unknown History lac-free,iron-fos 0.08 gram-2 kcal/mL oral liquid vits no.126-ferrous fum 1 tab PO DAILY tab 06/01/20 07/27/20 Unknown History 28 mg iron-folic acid 800 mcg tablet ropinirole 0.25 mg tablet 0.25 mg PO DAILY 06/01/20 07/27/20 Unknown History Prostat See Rx Instructions .ROUTE .COMPLEX 07/27/20 07/27/20 Unknown History doxycycline hyclate 100 mg PO BID 07/27/20 07/27/20 Unknown History escitalopram oxalate 20 mg PO DAILY 07/27/20 07/27/20 Unknown History fluticasone propionate [Flonase] 1 spray INTRANASAL DAILY 07/27/20 07/27/20 Unknown History hydrocodone-acetaminophen [[place]] 1 tab PO Q4H PRN 07/27/20 07/27/20 Unknown History loratadine 10 mg PO DAILY 07/27/20 07/27/20 Unknown History mirtazapine 30 mg PO DAILY 07/27/20 07/27/20 Unknown History ondansetron HCl [Zofran] 4 mg PO Q4H PRN 07/27/20 07/27/20 Unknown History salicylic acid [Therapeutic See Rx Instructions .ROUTE .COMPLEX 07/27/20 07/27/20 Unknown History Dandruff Shampoo] Allergies Allergy/AdvReac Type Severity Reaction Status Date / Time metoprolol Allergy Unknown Unknown Verified 07/27/20 11:06 naproxen Allergy Unknown Verified 07/27/20 11:06 tramadol [From Ultram] Allergy Unknown Verified 07/27/20 11:06 Current Medications Current Medications Generic Name Dose Route Start Last Admin Trade Name Dayna PRN Reason Stop Dose Admin Albuterol Sulfate 2 puff 07/27/20 05:37 07/28/20 11:08 Albuterol 8 Gm Mdi INHALATION 2 puff Q4H.RESPIRATORY JENNI Administration Aspirin 81 mg 07/27/20 09:00 07/28/20 08:10 Aspirin 81 Mg Ec Tablet PO 81 mg DAILY JENIN Administration Atorvastatin Calcium 20 mg 07/27/20 09:00 07/28/20 08:10 Atorvastatin 40 Mg Tablet PO 20 mg DAILY JENNI Administration Azithromycin 500 mg 07/27/20 09:00 07/28/20 08:09 Azithromycin 250 Mg Tablet PO 500 mg DAILY JENNI Administration Protocol Dutasteride 0.5 mg 07/27/20 09:00 07/28/20 08:18 Dutasteride 0.5 Mg Capsule PO 0.5 mg DAILY JENNI Administration Heparin Sodium (Beef Lung) 5,000 unit 07/27/20 05:37 07/28/20 04:50 Heparin 5,000 Unit/Ml Inj 1 Ml SUBCUT 5,000 unit Q8H JENNI Administration Dextrose/Sodium Chloride 1,000 mls @ 75 mls/hr 07/27/20 05:37 07/28/20 12:45 Dextrose 5%-Sod Chloride 0.45% IV 75 mls/hr .[id number] JENNI Administration Ceftriaxone Sodium 1,000 mg/ 50 mls @ 100 mls/hr 07/27/20 05:37 07/28/20 04:44 Sodium Chloride IV 100 mls/hr Q24H JENNI Administration Protocol Levetiracetam 500 mg 07/27/20 09:00 07/28/20 08:09 Levetiracetam 500 Mg Tablet PO 500 mg BID JENNI Administration Pantoprazole Sodium 40 mg 07/27/20 09:00 07/28/20 08:[address] 40 Mg Tablet PO 40 mg DAILY JENNI Administration Ropinirole HCl 0.25 mg 07/27/20 09:00 07/28/20 08:09 Ropinirole 0.25 Mg Tablet PO 0.25 mg DAILY JENNI Administration Tamsulosin HCl 0.4 mg 07/27/20 09:00 07/28/20 08:08 Tamsulosin 0.4 Mg Capsule PO 0.4 mg DAILY JENNI Administration PFSH Acute PFSH: Medical History (Updated 07/27/20 @ 00:53 by Krista Rehman MD) Bilateral hydronephrosis Chronic kidney disease COPD (chronic obstructive pulmonary disease) Hydronephrosis Hypertension Iron deficiency anemia Major depressive disorder, recurrent, in partial remission Neurogenic bladder Peptic ulcer disease Renal mass, right Small bowel obstruction Vitamin D deficiency Surgical History History of colostomy reversal History of esophagogastroduodenoscopy (EGD) History of total left hip replacement History of transurethral resection of prostate Hx of appendectomy Family History Father , AT AGE 49 PR No problems noted. Mother , AT AGE 58 CVA No problems noted. Sister Cancer STOMACH Social History (Updated 07/27/20 @ 00:54 by Krista Rehman MD) Smoking and tobacco status: current every day smoker Alcohol intake: unknown Adopted: No Caregiver/support person: No Housing: Other Details: [facility] home Marital status: Single Current occupational status: disabled Vitals/I&O/Wt Last Vital Signs Temp 97.6 F 07/28/20 08:00 Pulse 89 07/28/20 11:09 Resp 16 07/28/20 11:08 BP 154/77 07/28/20 08:00 Pulse Ox 93 07/28/20 11:08 07/27/20 07/28/20 07/28/20 22:59 06:59 14:59 Intake Total 1000 / 1050 1000 / 1000 Output Total 850 / 1200 750 / 1950 Balance 150 / -150 -750 / -900 1000 / 1000 Weight last 48 hrs Weight 200 lb Physical Exam Extremity: LEFT LOWER EXTREMITY: Yes hip joint Left hip: Yes inspection (in good alignment), Yes ROM (slight pain ) and Yes neurovascular exam (intact) Data Micro: Micro: Microbiology 07/27/20 09:54 Urine Culture - Pr eliminary Urine,Voided 07/27/20 09:23 Blood Culture - Pr eliminary Blood NEGATIVE TO CARLA E 07/27/20 09:18 Blood Culture - Pr eliminary Blood NEGATIVE TO CARLA E 07/27/20 09:54 Legionella Urinary Antigen - Final Urine,Voided Bacterial Antigens - Final Imaging^: Xray Ortho: I personally reviewed and interpreted this imaging study as follows: (left hip hemiarthroplasty erodeing into the acetabulum (protrusio)) A&P Additional A&P Information Patient has a left hip hemiarthroplasty which is eroding into the acetabulum has been medialized. At this point patient is able to ambulate on it could possibly get a CT scan but only if the patient was considering having surgery done. Surgery would consist of doing a revision total hip arthroplasty. Okay from my standpoint discharge the patient I can see him in the clinic and further evaluate him if the patient is having problems. Coding Level of Care Code Acute Manager Equipment for Yoshi Edwards
--- NOTE | 2020-07-28 15:14 | P.PN_ITS ---
Subjective Subjective: Interval history: This morning patient was examined, he is much more alert, awake, does have generalized weakness, profound weakness of bilateral lower extremities, he tells me that there is nothing wrong, denies any fevers, chills, cough, any shortness of breath Patient worked with physical therapy, they noticed profound weakness of bilateral lower extremity, muscle wasting, according to the shelter he is 1-2 person assist, has had progressive weakness Vitals/I&O/Wt Last Vital Signs Temp 97.9 F 07/28/20 12:00 Pulse 91 07/28/20 12:00 Resp 18 07/28/20 12:00 BP 157/80 07/28/20 12:00 Pulse Ox 94 07/28/20 12:00 07/28/20 07/28/20 07/28/20 06:59 14:59 22:59 Intake Total 1000 / 1000 Output Total 750 / 1950 850 / 850 Balance -750 / -900 150 / 150 Weight last 48 hrs Weight 90.718 kg Physical Exam Const: COMMON NORMALS: no acute distress ORIENTATION/CONSCIOUSNESS: Yes awake and Yes oriented to person; not oriented to place and not oriented to time HENMT: COMMON NORMALS: normocephalic HEAD & SCALP: normocephalic Neck/C-Spine: COMMON NORMALS: no JVD Resp: COMMON NORMALS: normal respiratory effort, No retractions and No use of accessory muscles AUSCULTATION: wheezes Cardio: COMMON NORMALS: no JVD, regular rate, regular rhythm, S1 normal heart sound present and S2 normal heart sound present RATE: regular rate RHYTHM: regular rhythm HEART SOUNDS: S1 normal heart sound present and S2 normal heart sound present GI: COMMON NORMALS: Normal to inspection, nondistended, normoactive bowel sounds present, Soft to palpation, non-tender, No hepatosplenomegaly present, no masses and no bruits PALPATION: Yes Soft to palpation and Yes No hepatosplenomegaly present Extremity: COMMON NORMALS: capillary refill normal, no clubbing, cyanosis or edema, no calf tenderness and no pedal edema Neuro: SENSORIUM/ORIENTATION: Yes oriented to person, No oriented to place and No oriented to time Data : 07/28/20 05:45 07/28/20 05:45 Micro: Microbiology 07/27/20 09:54 Urine Culture - Preliminary Urine,Voided 07/27/20 09:23 Blood Culture - Preliminary Blood NEGATIVE TO DATE 07/27/20 09:18 Blood Culture - Preliminary Blood NEGATIVE TO DATE 07/27/20 09:54 Legionella Urinary Antigen - Final Urine,Voided Bacterial Antigens - Final A&P Assessment and plan (1) Community acquired pneumonia: Status: Acute (2) Dysphagia: Status: Acute (3) Acute kidney injury superimposed on chronic kidney disease: Status: Acute (4) Dehydration: Status: Acute Additional A&P Information Community-acquired pneumonia and/or aspiration pneumonia Worsening infiltrate evident on x-ray report done at [facility] Covid antigen test is negative, Covid PCR negative Not septic at the time of admission Continue Rocephin and azithromycin Blood cultures, sputum cultures Check urine antigen DuoNeb every 4 as needed Dysphagia EKG sinus rhythm, no history of A. fib, CT head negative for acute findings Not a candidate of TPA, NIH 2, No facial droop, no slurring of the speech, no upper extremity weakness, does have profound bilateral extremity weakness, with muscle wasting, which seem more chronic in nature Unlikely to to be stroke related Not a candidate to get CTA head and neck because of abnormal creatinine Continue aspirin, statin, hold off on Plavix Passed bedside swallow eval, speech recommend soft mechanical diet Left hip pain Patient had open reduction internal fixation of left hip after femoral neck fracture X-ray of the left hip:Left hip prosthesis in place without fracture or loosening however there has been medial migration of the acetabular cup through the medial wall of the acetabulum. Consulted orthopedics, pain control, conservative measures, will speak to family if they want to pursue surgical intervention which is quite extensive Morphine analgesia Bowel regimen Acute on chronic kidney injury -Has chronic kidney disease, creatinine anywhere between 2 and 3 -Creatinine 1.7 today Continue on D5 half-normal saline fluid resuscitation Hold lisinopril, renal ultrasound:Mild persistent LEFT hydronephrosis. Bilateral chronic medical renal disease with areas of scarring and renal atrophy as above Sainz catheter draining concentrated urine, this most likely secondary to de hydration Hypotension: Responded very well to fluid resuscitation, current blood pressure in 111mmhg range He is not septic -am cortisol, tsh WNL Chronic hypoxic respiratory failure he is requiring 4 L nasal cannula at the other facility, at the time of my evaluation heis on 2L No acute exacerbation History of dementia: Continue antipsychotic agents, I will hold gabapentin, Seroquel, mirtazapine because of RADHA NSTEMI: -82, delta negative -no ekg st t wave changes -On aspirin, statin -Echocardiogram shows EF of 50%, no regional wall motion abnormalities, grade 2 out of 4 diastolic dysfunction DNR/DNI Currently n.p.o. advance diet as tolerated DVT prophylaxis Heparin Attestations Medical Necessity Statement*: Patient requires hospitalization for acute respiratory failure secondary to pneumonia, left hip pain, dysphagia Coding Level of Care Code Acute [employer] System for Chg Fwd Diagnoses Community acquired pneumonia J18.9 Dysphagia R13.10 Acute kidney injury superimposed on chronic kidney disease N17.9; N18.9 Dehydration E86.0
[2020-07-29] VITALS (9 sets, daily range): BP systolic 149–169; BP diastolic 76–89; PULSE 82–99; RESP 16–17; TEMP 36.4–36.7; O2SAT 94–96
[2020-07-29] MEDS: albuterol 8 gm MDI 2 PUFF INHALATION ×3 (00:42→07:26)
[2020-07-29] MEDS: cefTRIAXone 1,000 MG in sodium chloride 0.9% (plus) 50 ML 100 MG IV (05:23)
[2020-07-29] MEDS: heparin 5,000 unit/mL INJ 1 mL 5000 UNIT SUBCUT ×2 (05:23→15:13)
[2020-07-29 05:37] LABS: Basophils % 0.5 %; Eosinophils # 0.1 10^3/uL (0.0-0.8); Eosinophils % 2.6 %; Hematocrit 30.7 % (42.0-52.0); Hemoglobin 9.8 g/dL (11.7-16.6); Lymphocytes # 0.8 10^3/uL (0.8-4.8); Lymphocytes % 20.9 %; Mean Corpuscular HGB Conc 31.9 g/dL (30.0-36.0); Mean Corpuscular Hemoglobin 28.2 pg (28.0-34.0); Mean Corpuscular Volume 88.5 fL (80-94); Mean Platelet Volume 9.6 fL (7.4-10.4); Monocytes # 0.6 10^3/uL (0.2-0.9); Monocytes % 16.2 %; Neutrophils # 2.16 10^3/uL (1.8-7.7); Neutrophils % 55.7 %; Nucleated Red Blood Cells % 0 %; Platelet Count 342 10^3/cmm (130-400); Red Blood Count 3.47 10^6/uL (4.1-5.3); Red Cell Distribution Width 14.6 % (12.1-15.1); White Blood Count 3.9 10^3/uL (4.0-10.0)
[2020-07-29 06:11] LABS: Alanine Aminotransferase 25 U/L (0-41); Albumin Level 2.8 g/dL (3.5-5.2); Alkaline Phosphatase 133 IU/L (40-130); Anion Gap 12.4 (5-19); Aspartate Amino Transferase 41 U/L (0-40); Blood Urea Nitrogen 33 mg/dL (8-23); Calcium 8.8 mg/dL (8.5-10.5); Carbon Dioxide 18 mmol/L (22-29); Chloride 110 mmol/L (98-107); Globulin 3.3 g/dL (1.3-4.6); Glucose 99 mg/dL (65-115); Osmolality Calculated 287 mOsm/kg (285-295); Potassium 5.4 mmol/L (3.5-5.1); Sodium 135 mmol/L (136-145); Total Bilirubin 0.2 mg/dL (0.15-1.2); Total Protein 6.1 g/dL (6.6-8.7)
[2020-07-29] MEDS: ropinirole 0.25 mg Tablet PO (09:20)
[2020-07-29] MEDS: azithromycin 250 mg Tablet 500 MG PO (09:20)
[2020-07-29] MEDS: tamsulosin 0.4 mg Capsule PO (09:20)
[2020-07-29] MEDS: dutasteride 0.5 mg Capsule PO (09:21)
[2020-07-29] MEDS: levETIRAcetam 500 mg Tablet PO (09:21)
[2020-07-29] MEDS: pantoprazole DR 40 mg Tablet PO (09:21)
[2020-07-29] MEDS: atorvastatin 40 mg Tablet 20 MG PO (09:21)
[2020-07-29] MEDS: aspirin 81 mg EC Tablet PO (09:21)
--- NOTE | 2020-07-29 11:03 | PC.OT ---
Attempted Occupational therapy evaluation. Patient was unable to participate appropriately. No further occupational therapy indicated at this time.
--- NOTE | 2020-07-29 12:17 | PM.DCS ---
Discharge Providers Date of Admission: 07/27/20 16:58 Date of Discharge: July 29, 2020 Attending Provider at Admission: Krista Rehman MD Attending Provider at Discharge: Gerry Frazier MD Primary Care Provider: David Austin Diagnoses at Discharge Discharge Diagnosis (1) Community acquired pneumonia: Status: Acute (2) Dysphagia: Status: Acute (3) Acute kidney injury superimposed on chronic kidney disease: Status: Acute (4) Dehydration: Status: Acute Reason for Visit Reason for Visit: SOB Hospital Course Hospital Course This is a 70-year-old male with a past medical history of dementia, intellectual disability, multiple comorbid conditions, who presents [facility] from [facility] for hypotension Was admitted to [facility] for acute hypoxic respiratory failure secondary to aspiration pneumonia, admitted to the general medical floors, received broad-spectrum antibiotic therapy, oxygen therapy, blood cultures, sputum cultures, urine bacterial antigens, which all were negative, DuoNeb treatment. Patient's Covid antigen, Covid PCR was negative. Patient's clinical condition significantly improved, he was on 1 to 2 L on the day of discharge, afebrile, mentation had significantly improved. Back to baseline which is alert oriented x1, does know his name, his birthdate, recognizes his sisters names. Does have profound weakness, generalized, more significantly i the bilateral lower extremities, has calf muscle wasting, which according to the residential is chronic. I have discharged him on Augmentin for 7 remaining days for aspiration pneumonia, oxygen therapy, and inhaler therapy, I will also have patient follow-up with pulmonary for consideration of chronic suppressive antibiotics for aspiration pneumonia. I had a discussion with patient's Sister Poly Pruitt, [phone], I advised that likely patient's weakness, alteration of mentation, dehydration, slow decline over the last few months is related to chronic aspiration pneumonia, chronic aspiration pneumonitis related to his dementia process. I advised sister that this is can be a cyclical process, he will develop recurrent aspirations, recurrent aspiration pneumonias, have a slow decline, and end up in the hospital with pneumonia, he has a risk of sepsis, significant morbidity and mortality. But family does not want aggressive interventions, they want him to remain comfortable as possible, is DNR/DNI. I did go over the PEG tube option with Poly, she declines this, and tells me that Mirza did want tubes in him, Mirza would not want to live like this. Thus I advised that the best course of action, is to do aspiration precautions, dysphagia diet, and continue to monitor him for dehydration, and have patient follow-up with pulmonary as outpatient for consideration chronic suppressive antibiotic therapy to prevent recurrent aspiration pneumonias. She voiced recently, all questions answered. On admissions there was concerns for for CVA, I have not noticed any slurring with speech, no facial droop, no focal neurologic deficits, does have generalized weakness of his bilateral extremities which is chronic, CT head was negative for acute findings, continue home aspirin statin. Patient also has acute on chronic kidney disease likely secondary to dehydration, creatinine improved to 1.2 on discharge, good urine output. I have instructed the residential to give fluid boluses if he becomes dehydrated, monitor urine output. Patient also had elevated troponins during hospitalization, likely type II NSTEMI's supply demand ischemia from acute respiratory failure and aspiration pneumonia, echocardiogram showed an EF of 50%, no regional wall motion abnormalities, grade 2 out of 4 diastolic dysfunction, mild LVH. He is on aspirin and statin as above. After discussion with patient's sister, Poly Pruitt, family does not want to pursue interventions, does not follow with cardiology, advised the risk , voiced recently, all questions answered. Physical Exam Const: COMMON NORMALS: no acute distress ORIENTATION/CONSCIOUSNESS: Yes awake and Yes oriented to person; not oriented to place and not oriented to time HENMT: COMMON NORMALS: normocephalic HEAD & SCALP: normocephalic Neck/C-Spine: COMMON NORMALS: no JVD Resp: COMMON NORMALS: normal respiratory effort, No retractions, No use of accessory muscles and clear to auscultation bilaterally AUSCULTATION: clear to auscultation bilaterally Cardio: COMMON NORMALS: no JVD, regular rate, regular rhythm, S1 normal heart sound present and S2 normal heart sound present RATE: regular rate RHYTHM: regular rhythm HEART SOUNDS: S1 normal heart sound present and S2 normal heart sound present GI: COMMON NORMALS: Normal to inspection, nondistended, normoactive bowel sounds present, Soft to palpation, non-tender, No hepatosplenomegaly present, no masses and no bruits PALPATION: Yes Soft to palpation and Yes No hepatosplenomegaly present Extremity: COMMON NORMALS: capillary refill normal, no clubbing, cyanosis or edema, no calf tenderness and no pedal edema Neuro: SENSORIUM/ORIENTATION: Yes oriented to person, No oriented to place and No oriented to time Discharge Data Data Completed and Pending: Completed Studies During Hospitalization Category Date Time Status CT abdomen pelvis wo con [id number] Stat Cat Scan 07/27/20 14:[address] head wo con* 7 [id number] Stat Cat Scan 07/27/20 00:16 Completed XR chest 1V norberto ble [id number] Stat Exams 07/27/20 07:57 Completed XR hip LT 2-3V wo /w pel* [id number] Stat Exams 07/27/20 00:16 Completed CV echo complete* [id number] Routine Ultrasound 07/27/20 11:56 Completed US renal BI* [id number] Routine Ultrasound 07/27/20 11:56 Completed Pending at discharge Category Date Time Status Blood Culture Sta t Lab 07/27/20 09:23 Results Complete Blood Co unt w/Auto AM LABS Lab 07/30/20 04:00 Ordered Complete Blood Co unt w/Auto AM LABS Lab 07/31/20 04:00 Ordered Comprehensive Met abolic Panel AM LA BS Lab 07/30/20 04:00 Ordered Levetiracetam Kep pra Routine Lab 07/27/20 00:56 Received Magnesium AM LABS Lab 07/30/20 04:00 Ordered Phosphorus AM LAB S Lab 07/30/20 04:00 Ordered Labs from last 24 hours 07/29/20 07/29/20 04:52 04:52 WBC 3.9 L RBC 3.47 L Hgb 9.8 L Hct 30.7 L MCV 88.5 MCH 28.2 MCHC 31.9 D RDW 14.6 Plt Count 342 MPV 9.6 Neut % (Auto) 55.7 Lymph % (Auto) 20.9 [place] % (Auto) 16.2 Eos % (Auto) 2.6 Baso % (Auto) 0.5 Neut # (Auto) 2.16 Lymph # (Auto) 0.8 [place] # (Auto) 0.6 Eos # (Auto) 0.1 Baso # (Auto) 0.0 Nucleated RBC % (a uto) 0 Nucleated RBCs # 0.0 Sodium 135 L Potassium 5.4 H Chloride 110 H Carbon Dioxide 18 L Anion Gap 12.4 BUN 33 H Creatinine 1.2 GFR Calculation Not Reportable Glucose 99 Calculated Osmolal ity 287 Calcium 8.8 Phosphorus 2.0 L Magnesium 2.0 Total Bilirubin 0.2 AST 41 H ALT 25 Alkaline Phosphata se 133 H Total Protein 6.1 L Albumin 2.8 L Globulin 3.3 Vitals: Last Vital Signs Temp 97.5 F L 07/29/20 11:46 Pulse 82 07/29/20 11:46 Resp 16 07/29/20 11:46 BP 149/89 07/29/20 11:46 Pulse Ox 95 07/29/20 11:46 Discharge Plan Discharge Patient Disposition: Home Condition: Stable Prescriptions: New albuterol sulfate [Ventolin HFA] 90 mcg/actuation Hfa Aerosol Inhaler 2 puff inhalation Q4H.RESPIRATORY PRN (Reason: Shortness Of Breath) Qty: 18 RF: 0 amoxicillin-pot clavulanate [Augmentin] 875-125 mg tablet 1 tab PO BID 14 Days Qty: 28 RF: 0 Continued aspirin [Adult Low Dose Aspirin] 81 mg tablet,delayed release (DR/EC) 81 mg PO DAILY RF: 0 dutasteride [Avodart] 0.5 mg capsule 0.5 mg PO DAILY RF: 0 esomeprazole magnesium [Nexium] 40 mg capsule,delayed release(DR/EC) 40 mg PO DAILY RF: 0 gabapentin 100 mg capsule 100 mg PO TID RF: 0 levetiracetam [Keppra] 500 mg tablet 500 mg PO BID RF: 0 simvastatin 40 mg tablet 40 mg PO DAILY RF: 0 docusate sodium [Colace] 100 mg capsule 200 mg PO BID RF: 0 tamsulosin [Flomax] 0.4 mg capsule 0.4 mg PO DAILY RF: 0 fluticasone propion-salmeterol [Advair Diskus] 250-50 mcg/dose blister with device 1 inh INHALATION BID RF: 0 albuterol sulfate [Ventolin HFA] 90 mcg/actuation HFA aerosol inhaler 2 puff INHALATION Q4H RF: 0 polyethylene glycol 3350 [Miralax] 17 gram/dose powder 17 gm PO DAILY PRN (Reason: Constipation) RF: 0 ipratropium bromide 0.03 % spray,non-aerosol 2 spray INTRANASAL TID PRN (Reason: unknown) RF: 0 divalproex 500 mg tablet,delayed release (DR/EC) 500 mg PO BID Qty: 60 RF: 4 trazodone 50 mg tablet 25 mg PO .bedtime PRN (Reason: sleep) Qty: 30 RF: 3 melatonin 5 mg capsule 10 mg PO .bedtime Qty: 60 RF: 3 acetaminophen 650 mg tablet extended release 650 mg PO Q4H PRN (Reason: Pain) RF: 0 ropinirole [Requip] 0.25 mg tablet 0.25 mg PO DAILY RF: 0 lactulose 10 gram/15 mL solution 10 gm PO DAILY PRN (Reason: Constipation) RF: 0 cholecalciferol (vitamin D3) 1,250 mcg (50,000 unit) capsule 50,000 unit PO Q7D RF: 0 TwoCal HN 0.08-2 gram-kcal/mL liquid See Rx Instructions PO TID RF: 0 Classic 28 mg iron- 800 mcg tablet 1 tab PO DAILY RF: 0 Ephraim 5-325 mg Tablet 1 tab PO Q4H PRN (Reason: Pain) RF: 0 Zofran 4 mg Tablet 4 mg PO Q4H PRN (Reason: Nausea And Vomiting) RF: 0 Therapeutic Dandruff Shampoo 3 % Shampoo See Rx Instructions .ROUTE .COMPLEX RF: 0 mirtazapine 15 mg Tablet 30 mg PO DAILY RF: 0 Flonase 50 mcg/actuation [place],Suspension 1 spray INTRANASAL DAILY RF: 0 loratadine 10 mg Tablet 10 mg PO DAILY RF: 0 escitalopram oxalate 20 mg Tablet 20 mg PO DAILY RF: 0 Prostat See Rx Instructions .ROUTE .COMPLEX RF: 0 Discontinued Bepreve 1.5 % drops 1 drop ophthalmic (eye) DAILY RF: 0 doxycycline hyclate 100 mg Capsule 100 mg PO BID RF: 0 Discharge Orders: Discharge Order (Routine); Ordered 07/29/20 Ordered By: Gerry Frazier Referrals: Sedrick Gallagher MD [Physician] - ([place] aspiration [facility] [place] call you Friday with an appointment to see Dr. Gallagher at his next available appointment. If you do not hear from them please call [phone]) Discharge Diet: As Directed Discharge Activity: Resume usual activity Patient Instructions: Aspiration, Aspiration Pneumonia (DC) Discharge Attestations Time Spent in Discharge Care*: less than 30 min Quality Metrics Clinical Quality Measures During this hospital stay, did patient experience: None Coding Level of Care Code Acute Hl7 Interface Developer for Chg Fwd Diagnoses Community acquired pneumonia J18.9 Dysphagia R13.10 Acute kidney injury superimposed on chronic kidney disease N17.9; N18.9 Dehydration E86.0
[2020-08-01 10:48] LABS: Levetiracetam Keppra 30.7 mcg/mL
--- NOTE | 2020-08-01 14:28 | PC.RESP ---
SMOKING CESSATION AND PULMONARY REHAB INFORMATION SENT TO PATIENT.
== END 2020-07-29 16:16 | disposition home or self-care (01) | DRG 177 ==
LOC: ER 21:45 → MEDSURG 23:20
PROVIDERS: Admitting Provider Internal Medicine; Emergency Provider Emergency Medicine; PCP Family Medicine; Visit Provider Family Medicine
DX: J69.0 Pneumonitis due to inhalation of food and vomit (principal); I21.A1 Myocardial infarction type 2; J96.21 Acute and chronic respiratory failure with hypoxia; N13.30 Unspecified hydronephrosis; T84.060A Wear of articular bearing surface of internal prosthetic right hip joint, initial encounter; N17.9 Acute kidney failure, unspecified; I95.9 Hypotension, unspecified; J44.9 Chronic obstructive pulmonary disease, unspecified; M25.552 Pain in left hip; R13.10 Dysphagia, unspecified; Z87.440 Personal history of urinary (tract) infections; J10.1 Influenza due to other identified influenza virus with other respiratory manifestations; Z66 Do not resuscitate; N18.9 Chronic kidney disease, unspecified; D50.9 Iron deficiency anemia, unspecified; F32.4 Major depressive disorder, single episode, in partial remission; Z87.11 Personal history of peptic ulcer disease; N31.9 Neuromuscular dysfunction of bladder, unspecified; N28.89 Other specified disorders of kidney and ureter; E55.9 Vitamin D deficiency, unspecified; Z96.642 Presence of left artificial hip joint; Z79.891 Long term (current) use of opiate analgesic; Z79.82 Long term (current) use of aspirin; Y79.2 Prosthetic and other implants, materials and accessory orthopedic devices associated with adverse incidents; F03.90 Unspecified dementia, unspecified severity, without behavioral disturbance, psychotic disturbance, mood disturbance, and anxiety; E86.0 Dehydration; F17.210 Nicotine dependence, cigarettes, uncomplicated
CPT/HCPCS: 12345; 36415; 70450; 71045; 73502; 74176; 76770; 80053; 80177; 80185; 82533; 83735; 84100; 84145; 84443; 84484; 85025; 85378; 86140; 86403; 87040; 87086; 87426; 87449; 87635; 92523; 92610; 93005; 93306; 94640; 96372; 97161; 99281; G0378; J0696; J1644; J3535; J7799; Q0144

== ENCOUNTER 2021-06-12 18:57 | Observation (INO) | payer MEDICARE, MEDICAID, SELFPAY ==
--- NOTE | 2021-06-12 19:01 | W.ED.CHESTPA ---
HPI - Chest Pain General: Chief Complaint: Chest Pain Stated Complaint: CHEST PAIN, SOB Time Seen by Provider: 06/12/21 19:01 History of Present Illness: HPI narrative: Mr. Rodrigues is a 71-year-old gentleman who denies past medical history presents emergency department with chest pain and generalized malaise. Symptom onset was just reported as a few hours ago. He had fairly subacute onset of midsternal chest pain with radiation down the left arm which feels sharp. Associated with shortness of breath. Course as remained about the same. It is unclear if there are any specific exacerbating or relieving factors. He has mild associated pain in his legs as well. He otherwise denies infectious symptoms or changes in health. Review of Systems General: Reports: 10 or more systems reviewed and unremarkable except in HPI and below PFSH ED PFSH: Medical History Aspiration pneumonia Bilateral hydronephrosis Chronic kidney disease COPD (chronic obstructive pulmonary disease) Hydronephrosis Hypertension Iron deficiency anemia Major depressive disorder, recurrent, in partial remission Neurogenic bladder Peptic ulcer disease Renal mass, right Small bowel obstruction Vitamin D deficiency Surgical History History of colostomy reversal History of esophagogastroduodenoscopy (EGD) History of total left hip replacement History of transurethral resection of prostate Hx of appendectomy Family History Father , AT AGE 49 [place] No problems noted. Mother , AT AGE 58 CVA No problems noted. Sister Cancer STOMACH Social History Smoking and tobacco status: current some day smoker cigarettes [ Other cigarette details: 6yr hx ] Quit status (tobacco): not considering quitting Second hand smoke exposure: Yes Smoking risk assessment/counseling performed?: Yes Alcohol intake: former Adopted: No Caregiver/support person: No Lives independently: No Housing: Halfway Marital status: Single service: No Current occupational status: disabled Pets and animals: Yes History of recent travel: No Current gender identity: Male Physical Exam Narrative: EXAM NARRATIVE: GENERAL/CONSTITUTIONAL -mildly ill-appearing. Uncomfortable Eyes - PERRL, no conjunctival injection ENMT - Atraumatic external nose and ears. Moist mucous membranes NECK - supple. trachea midline CARDIOVASCULAR - regular rate and rhythm. RESPIRATORY -clear to auscultation bilaterally. No retractions or accessory muscle use. ABDOMEN/GI - Nontender/Nondistended. No tenderness to percussion or evidence of peritonitis MSK - Extremities without obvious deformity or tenderness to palpation SKIN - Warm, Dry NEURO - alert and appropriately oriented. strength and sensation intact. Moves all extremities equally. PSYCH - Appropriate mood and affect. Impaired memory/poor historian. Course ED course: - Patient was seen and evaluated by me at bedside - Patient placed on cardiac monitors, IV access obtained - Initial evaluation notable for findings as noted above. Patient has difficulty qualifying or quantifying much of his symptoms. Unclear baseline regarding mental status. - Labs notable for no leukocytosis, normocytic anemia. Mild elevation in creatinine which is similar to baseline. Delta troponin negative, BNP elevated. - Imaging notable for no acute intercranial abnormality. Chest x-ray somewhat abnormal, CTA negative for pulmonary embolism, unclear infiltrates concerning for pneumonia - Upon serial reexamination after treatment the patient was similar - Based on patient history, evaluation, labs, and imaging as interpreted the most likely cause of the patient's condition is unclear, may be related to month pneumonia however chest pain with elevated heart score and no recent cardiac work-up cannot be excluded. - The results of ED evaluation were discussed with the patient including plan for admission due to requirement for level of care not available if discharged to prevent significant worsening/deterioration. -Hospitalist service contacted and agreed to admit the patient. - Patient was admitted without further deterioration or significant events. Vital Signs: Vital signs: Vital Signs Temperature 98.4 F 06/14/21 12:31 Pulse Rate 74 06/14/21 12:31 Respiratory Rate 18 06/14/21 12:31 Blood Pressure 130/74 06/14/21 12:31 Pulse Oximetry 98 06/14/21 12:31 MDM - Chest Pain Medical Records: Attestation: I reviewed the patient's medical records. Lab Data: Attestation: I reviewed the patient's lab results. Labs: Lab Results 06/12/21 06/12/21 06/12/21 19:48 19:48 19:48 WBC 6.8 10^3/uL 10^3/ uL (4.0-10.0) RBC 3.70 10^6/uL L 10 ^6/uL (4.1-5.3) Hgb 11.0 g/dL L g/dL (11.7-16.6) Hct 35.4 % L % (42.0-52.0) MCV 95.7 fl H fl (80-94) MCH 29.7 pg pg (28.0-34.0) MCHC 31.1 g/dL g/dL (30.0-36.0) RDW 13.4 % % (12.1-15.1) Plt Count 205 10^3/cmm 10^3 /cmm (130-400) MPV 10.3 fL fL (7.4-10.4) Neut % (Auto) 60.0 % % Lymph % (Auto) 19.0 % % Cross % (Auto) 12.1 % % Eos % (Auto) 8.0 % % Baso % (Auto) 0.3 % % Neut # (Auto) 4.05 10^3/uL 10^3 /uL (1.8-7.7) Lymph # (Auto) 1.3 10^3/uL 10^3/ uL (0.8-4.8) Cross # (Auto) 0.8 10^3/uL 10^3/ uL (0.2-0.9) Eos # (Auto) 0.5 10^3/uL 10^3/ uL (0.0-0.8) Baso # (Auto) 0.0 10^3/uL 10^3/ uL (0.0-0.1) Nucleated RBC % (a uto) 0 % % Nucleated RBCs # 0.0 /100WBC /100W BC Sodium 136 mmol/L mmol/L (136-145) Potassium 4.0 mmol/L mmol/L (3.5-5.1) Chloride 100 mmol/L mmol/L (98-107) Carbon Dioxide 23 mmol/L mmol/L (22-29) Anion Gap 17.0 (5-19) BUN 31 mg/dL H mg/dL (8-23) Creatinine 1.4 mg/dL H mg/dL (0.7-1.2) GFR Calculation Not Reportable Glucose 70 mg/dL mg/dL (65-115) POC Glucose Calculated Osmolal ity 287 mOsm/kg mOsm/ kg (285-295) Calcium 8.4 mg/dL L mg/dL (8.5-10.5) Total Bilirubin 0.2 mg/dL mg/dL (0.15-1.2) AST 14 U/L U/L (0-40) ALT < 5 U/L U/L (0-41) Alkaline Phosphata se 43 IU/L IU/L (40-130) Troponin T Baselin e 49 ng/L H ng/L (0-15) Troponin T 120 Min [place] Delta Troponin T NT-Pro-B Natriuret Pep 1290 pg/mL H pg/m L (0-125) Total Protein 6.0 g/dL L g/dL (6.6-8.7) Albumin 3.3 g/dL L g/dL (3.5-5.2) Globulin 2.7 g/dL g/dL (1.3-4.6) Lipase 44 U/L U/L (13-60) Procalcitonin Urine Color Urine Appearance Urine pH Ur Specific Gravit y Urine Protein Urine Glucose (UA) Urine Ketones Urine Blood Urine Nitrate Urine Bilirubin Urine Urobilinogen Ur Leukocyte Aditi ase Urine RBC Urine WBC Ur Squamous Epith Cells Amorphous Sediment Urine Bacteria SARS-CoV-2 Ag (Rap id) 06/12/21 06/12/21 06/12/21 19:48 19:50 19:52 WBC RBC Hgb Hct MCV MCH MCHC RDW Plt Count MPV Neut % (Auto) Lymph % (Auto) Cross % (Auto) Eos % (Auto) Baso % (Auto) Neut # (Auto) Lymph # (Auto) Cross # (Auto) Eos # (Auto) Baso # (Auto) Nucleated RBC % (a uto) Nucleated RBCs # Sodium Potassium Chloride Carbon Dioxide Anion Gap BUN Creatinine GFR Calculation Glucose POC Glucose 80 mg/dL mg/dL (70-110) Calculated Osmolal ity Calcium Total Bilirubin AST ALT Alkaline Phosphata se Troponin T Baselin e Troponin T 120 Min [place] Delta Troponin T NT-Pro-B Natriuret Pep Total Protein Albumin Globulin Lipase Procalcitonin Urine Color Yellow (Yellow) Urine Appearance Cloudy (CLEAR) Urine pH 5 (5-7) Ur Specific Gravit y 1.015 (1.005-1.030) Urine Protein Neg (Negative) Urine Glucose (UA) 2+ H (Normal) Urine Ketones Negative (Negative) Urine Blood 2+ H (Negative) Urine Nitrate Positive H (Negative) Urine Bilirubin Neg (Negative) Urine Urobilinogen Norm mg/dL mg/dL (Negative) Ur Leukocyte Aditi ase 2+ H (Negative) Urine RBC 5-10 /hpf H /hpf (0-2) Urine WBC >100 /hpf H /hpf (0-5) Ur Squamous Epith Cells 0-4 /hpf H /hpf (0-5) Amorphous Sediment Not Reportable Urine Bacteria 1+ /hpf H /hpf (NONE) SARS-CoV-2 Ag (Rap id) Negative (Negative) 06/12/21 06/12/21 21:18 21:18 WBC RBC Hgb Hct MCV MCH MCHC RDW Plt Count MPV Neut % (Auto) Lymph % (Auto) Cross % (Auto) Eos % (Auto) Baso % (Auto) Neut # (Auto) Lymph # (Auto) Cross # (Auto) Eos # (Auto) Baso # (Auto) Nucleated RBC % (a uto) Nucleated RBCs # Sodium Potassium Chloride Carbon Dioxide Anion Gap BUN Creatinine GFR Calculation Glucose POC Glucose Calculated Osmolal ity Calcium Total Bilirubin AST ALT Alkaline Phosphata se Troponin T Baselin e Troponin T 120 Min [place] 46.69 ng/L H ng/L (0-15) Delta Troponin T -2.31 ABS# L ABS# (0-10) NT-Pro-B Natriuret Pep Total Protein Albumin Globulin Lipase Procalcitonin 0.12 ng/mL ng/mL (0-0.5) Urine Color Urine Appearance Urine pH Ur Specific Gravit y Urine Protein Urine Glucose (UA) Urine Ketones Urine Blood Urine Nitrate Urine Bilirubin Urine Urobilinogen Ur Leukocyte Aditi ase Urine RBC Urine WBC Ur Squamous Epith Cells Amorphous Sediment Urine Bacteria SARS-CoV-2 Ag (Rap id) EKG Data^: EKG 1: Attestation: I personally reviewed and interpreted this EKG as follows: EKG interpretation date: 06/12/21 EKG interpretation time: 19:08 Interpretation: Twelve-lead EKG shows a regular rhythm at a rate of 72. SD interval 187, QRS duration 77, QTc 400. Normal axis. Interpretation: Sinus rhythm Discharge Plan Discharge Patient Disposition: Admitted As Inpatient Admit Provider: Gina Whitley Condition: Stable Discharge Diet: As Directed Discharge Activity: Resume usual activity Coding Level of Care Code ED Cruise Agent for Yoshi Edwards
[2021-06-12 19:10] VITALS: BP 122/63; PULSE 71; RESP 18; TEMP 36.7; O2SAT 98; BMI 24.4
--- NOTE | 2021-06-12 19:29 | XRR_ITS ---
PROCEDURE INFORMATION: Exam: XR Chest Exam date and time: 06/12/2021 7:29 PM Age: 71 years old Clinical indication: Chest wall pain; Additional info: Chest pain TECHNIQUE: Imaging protocol: XR of the chest. Views: 1 view. COMPARISON: CR XR chest 1V portable [id number] 07/27/2020 8:02 AM FINDINGS: Lungs: Emphysematous changes. Right hilar to lower lobe and patchy left mid to lower lung field atelectasis versus infiltrate. Pleural spaces: Unremarkable. No pleural effusion. No pneumothorax. Heart/Mediastinum: Unremarkable. No cardiomegaly. Bones/joints: Unremarkable. XR/XR chest 1V portable [id number] IMPRESSION: 1. Emphysematous changes. 2. Right hilar to lower lobe and patchy left mid to lower lung field atelectasis versus infiltrate. Radiation Dose CTDIVOL = (mGy): DLP = (mGy-cm)
--- NOTE | 2021-06-12 19:29 | ECG_ITS ---
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 Measurements Intervals [place] Rate: 72 P: 70 [place]: 187 QRS: 24 QRSD: 77 T: 52 QT: 376 QTc: 413 Interpretive Statements SINUS RHYTHM Compared to ECG 07/27/2020 11:19:02 No significant changes Electronically Signed On 06-13-2021 22:42:07 CDT by Edson Arambula M.D. [id number]
[2021-06-12 19:55] LABS: Glucose Point of Care 80 mg/dL (70-110)
[2021-06-12 19:59] LABS: Basophils % 0.3 %; Eosinophils # 0.5 10^3/uL (0.0-0.8); Hematocrit 35.4 % (42.0-52.0); Lymphocytes # 1.3 10^3/uL (0.8-4.8); Mean Corpuscular HGB Conc 31.1 g/dL (30.0-36.0); Mean Corpuscular Hemoglobin 29.7 pg (28.0-34.0); Mean Corpuscular Volume 95.7 fl (80-94); Mean Platelet Volume 10.3 fL (7.4-10.4); Monocytes # 0.8 10^3/uL (0.2-0.9); Monocytes % 12.1 %; Neutrophils # 4.05 10^3/uL (1.8-7.7); Nucleated Red Blood Cells % 0 %; Platelet Count 205 10^3/cmm (130-400); Red Cell Distribution Width 13.4 % (12.1-15.1); White Blood Count 6.8 10^3/uL (4.0-10.0)
[2021-06-12 20:18] LABS: SARS Covid-2 Antigen Negative (Negative)
--- NOTE | 2021-06-12 20:28 | CTR_ITS ---
PROCEDURE INFORMATION: Exam: CT Head Without Contrast Exam date and time: 06/12/2021 8:28 PM Age: 71 years old Clinical indication: Altered mental status/memory loss; Confusion or disorientation; Additional info: AMS TECHNIQUE: Imaging protocol: Computed tomography of the head without contrast. Radiation optimization: All CT scans at this facility use at least one of these dose optimization techniques: automated exposure control; mA and/or kV adjustment per patient size (includes targeted exams where dose is matched to clinical indication); or iterative reconstruction. COMPARISON: CT head wo con* [id number] 07/27/2020 3:13 AM RADIATION DOSE METRICS: Total DLP (mGy-cm): 912.74 FINDINGS: Brain: Mild diffuse white matter disease likely reflecting chronic microvascular ischemic changes. Cerebral ventricles: No ventriculomegaly. Paranasal sinuses: Visualized sinuses are unremarkable. No fluid levels. Mastoid air cells: Visualized mastoid air cells are well aerated. Bones/joints: Unremarkable. No acute fracture. Soft tissues: Unremarkable. CT/CT head wo con* [id number] IMPRESSION: Negative for intracranial hemorrhage or mass effect Radiation Dose CTDIVOL = (mGy): DLP = 912.74 (mGy-cm)
--- NOTE | 2021-06-12 20:31 | CTR_ITS ---
PROCEDURE INFORMATION: Exam: CTA Chest With Contrast Exam date and time: 06/12/2021 8:31 PM Age: 71 years old Clinical indication: Shortness of breath; Additional info: Pain, hypoxemia, abnormal XR TECHNIQUE: Imaging protocol: Computed tomographic angiography of the chest with contrast. 3D rendering (Not supervised by radiologist): MIP and/or 3D reconstructed images were created by the technologist. Radiation optimization: All CT scans at this facility use at least one of these dose optimization techniques: automated exposure control; mA and/or kV adjustment per patient size (includes targeted exams where dose is matched to clinical indication); or iterative reconstruction. Contrast material: VISI 320; Contrast volume: 95 ml; Contrast route: INTRAVENOUS (IV); COMPARISON: CT chest w con* [id number] 06/12/2018 9:58 AM RADIATION DOSE METRICS: Total DLP (mGy-cm): 551.42 FINDINGS: Pulmonary arteries: Unopacified pulmonary veins in the right lower lobe which are somewhat thickened with no obvious pulmonary embolus. Aorta: Calcification of the thoracic aorta and/or great vessels consistent with atherosclerotic vessel disease. Lungs: Mild paraseptal emphysema. Nonspecific interstitial opacities in the dependent portions of the lungs including the lower lobes and posterior portions of the right middle lobe left upper lobe consistent with pulmonary edema versus pulmonary interstitial pneumonia. Severe centrilobular emphysema. Pleural spaces: Unremarkable. No pneumothorax. No pleural effusion. Heart: Severe calcified coronary artery disease. Lymph nodes: Unremarkable. No enlarged lymph nodes. Bones/joints: Unremarkable. No acute fracture. Soft tissues: Unremarkable. Other findings: Postoperative changes over the gastroesophageal junction. CT/CT angio chest PE protcl [id number] IMPRESSION: 1. Mild paraseptal emphysema. 2. Nonspecific interstitial opacities in the dependent portions of the lungs including the lower lobes and posterior portions of the right middle lobe left upper lobe consistent with pulmonary edema versus pulmonary interstitial pneumonia. 3. Severe centrilobular emphysema. 4. Unopacified pulmonary veins in the right lower lobe which are somewhat thickened with no obvious pulmonary embolus. Radiation Dose CTDIVOL = (mGy): DLP = 551.42 (mGy-cm)
[2021-06-12 20:52] LABS: Troponin(5th) Baseline 49 ng/L (0-15)
[2021-06-12 20:59] LABS: Alanine Aminotransferase < 5 U/L (0-41); Aspartate Amino Transferase 14 U/L (0-40); Carbon Dioxide 23 mmol/L (22-29); Glucose 70 mg/dL (65-115); Lipase 44 U/L (13-60); Total Bilirubin 0.2 mg/dL (0.15-1.2)
[2021-06-12 21:04] LABS: Chloride 100 mmol/L (98-107); Osmolality Calculated 287 mOsm/kg (285-295); Sodium 136 mmol/L (136-145)
--- NOTE | 2021-06-12 21:29 | ECG_ITS ---
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 Measurements Intervals [place] Rate: 72 P: 70 [place]: 187 QRS: 24 QRSD: 77 T: 52 QT: 376 QTc: 413 Interpretive Statements SINUS RHYTHM Compared to ECG 07/27/2020 11:19:02 No significant changes Electronically Signed On 06-13-2021 23:05:17 CDT by Edson Arambula M.D. [id number]
[2021-06-12 21:46] LABS: Blood Urea Nitrogen 31 mg/dL (8-23); Calcium 8.4 mg/dL (8.5-10.5)
[2021-06-12 21:48] LABS: NT Pro B Type Natriuretic Pept 1290 pg/mL (0-125)
[2021-06-12] MEDS: iodixanol 320 mg/mL 100mL Btl IV (21:54)
[2021-06-12 22:00] VITALS: BP 118/64; PULSE 60; O2SAT 100
[2021-06-12 22:02] LABS: Albumin Level 3.3 g/dL (3.5-5.2); Alkaline Phosphatase 43 IU/L (40-130); Globulin 2.7 g/dL (1.3-4.6)
[2021-06-12 22:05] LABS: Troponin 5 2HR 46.69 ng/L (0-15)
[2021-06-12 22:06] LABS: Troponin 5 2HR Delta -2.31 ABS# (0-10)
[2021-06-12 23:13] LABS: Add Urine Microscopic? YES; Bilirubin Urine Neg (Negative); Blood Urine 2+ (Negative); Glucose Urine UA 2+ (Normal); Ketones Urine Negative (Negative); Leukocyte Esterase Urine 2+ (Negative); Nitrate Urine Positive (Negative); Protein Urine Neg (Negative); Specific Gravity, Urine 1.015 (1.005-1.030); Urine Appearance Cloudy (CLEAR); Urine Color Yellow (Yellow); Urobilinogen Urine Norm (Negative); pH Urine 5 (5-7)
[2021-06-12 23:34] LABS: Procalcitonin 0.12 ng/mL (0-0.5)
[2021-06-12 23:38] LABS: Add Urine Culture? Yes; Bacteria Urine 1+ /hpf; Squamous Epithelial Cell Urine 0-4 /hpf (0-5); WBC Urine >100 /hpf (0-5)
[2021-06-12 23:48] VITALS: BP 132/82; PULSE 74; O2SAT 95
[2021-06-13] VITALS (13 sets, daily range): BP systolic 96–151; BP diastolic 55–86; PULSE 63–75; RESP 16–20; TEMP 36.1–36.8; O2SAT 93–98; BMI 24.4
[2021-06-13 02:18] LABS: Troponin 5 6HR 44.81 ng/L (0-15)
[2021-06-13 02:19] LABS: Troponin 5 6HR Delta -4.19 ng/L (0-12)
[2021-06-13] MEDS: FUROsemide 10 mg/mL SDV 4mL 40 MG IVP (04:58)
[2021-06-13] MEDS: acetaminophen 325 mg Tablet 650 MG PO (04:58)
--- NOTE | 2021-06-13 06:49 | PM.HP ---
Providers/Chief Complaint Admitting Physician: Gina Whitley MD Primary Care Provider: David Austin Chief Complaint: CHEST PAIN, SOB History of Present Illness Mirza Rodrigues is a 71 year old male with a PMH of dementia, intellectual disability, COPD, h/o recurrent aspiration pneumonia declined PEG placement on previous admissions, on 2lpm prn, [place] resident at [facility] brought to the ER due to c/o chest pain. History obtained by talking to [place] staff, patient unable to tell clearly why he is at the hospital except that he had some recent chest pain and possible pneumonia. He has been in his baseline state of health until yesterday when he started c/o chest pain, left sided, non radiating. His rib was thought to be more protruding than usual , no recent falls. He is wheelchair bound. No recent aspiration events, no coughing, expectoration. No recent fever. Last tested routinely for COVID on 05/31, was negative. CTA chest negative for PE. Nonspecific interstitial opacities in the dependent portions of the lungs including the lower lobes and posterior portions of the right middle lobe left upper lobe consistent with pulmonary edema versus pulmonary interstitial pneumonia. He is supposed to be on fluid restriction 1800 cc per day, but poorly compliant with the same. no diuretics at the [place] Trop series without significant delta, EKG withtu acute ST-T changes. gr 2 diastolic function on last echo from 07/2020 Review of Systems General: Reports: 10 or more systems reviewed and unremarkable except in HPI and below and Other Const: Denies: fever(s), chills or body aches Eyes: Denies: change in vision, blurry vision or photophobia ENMT: Reports: hoarseness; Denies: throat pain, enlarged tonsils, odynophagia or nasal congestion Card: Denies: chest pain, palpitations, irregular heart rhythm, edema, swelling of feet/ankles, lightheadedness, pre-syncope, dyspnea on exertion or orthopnea Resp: Denies: dyspnea, productive cough, non-productive cough, wheezing, stridor, pain on inspiration, change in phlegm color, hemoptysis or chest congestion GI: Denies: abdominal pain, nausea, vomiting, hematemesis, coffee ground emesis, dysphagia, heartburn, diarrhea, constipation, GI cramping, change in stool character, hematochezia or melena : Denies: flank pain, dysuria, urinary frequency, urinary urgency, urinary hesitancy or hematuria Musc: Denies: neck pain, back pain, extremity pain, joint swelling, joint warmth or deformity Neuro: Denies: headache(s), numbness in extremities, weakness in extremities, sensory changes, difficulty walking, frequent falls, dizziness, vertigo, behavioral changes, Slurred speech present or seizure-like activity Psych: Denies: anxiety, depression, suicidal ideation or homicidal ideation Endo: Denies: polyuria, polydipsia, tired all the time, cold intolerance or hot flashes Jagdish/Lymph: Denies: easy bruising or easy bleeding Medications/Allergies Home Medications Medication Instructions Recorded Confirmed Last Taken Type aspirin 81 mg tablet,delayed 81 mg PO DAILY 10/04/19 01/29/21 Unknown History release docusate sodium 100 mg capsule 200 mg PO BID cap 10/04/19 01/29/21 Unknown History dutasteride 0.5 mg capsule 0.5 mg PO DAILY 10/04/19 01/29/21 Unknown History esomeprazole magnesium 40 mg 40 mg PO DAILY 10/04/19 01/29/21 Unknown History capsule,delayed release fluticasone 250 mcg-salmeterol 50 1 inh INHALATION BID 10/04/19 01/29/21 Unknown History mcg/dose blistr powdr for inhalation levetiracetam 500 mg tablet 500 mg PO BID 10/04/19 01/29/21 Unknown History polyethylene glycol 3350 17 17 gm PO DAILY PRN 10/04/19 01/29/21 Unknown History gram/dose oral powder simvastatin 40 mg tablet 40 mg PO DAILY 10/04/19 01/29/21 Unknown History tamsulosin 0.4 mg capsule 0.4 mg PO DAILY 10/04/19 01/29/21 Unknown History divalproex 500 mg tablet,delayed 500 mg PO BID #60 tab 12/31/19 01/29/21 Unknown Rx release melatonin 5 mg capsule 10 mg PO .bedtime #60 cap 12/31/19 01/29/21 Unknown Rx trazodone 50 mg tablet 25 mg PO .bedtime PRN #30 tab 12/31/19 01/29/21 Unknown Rx acetaminophen 650 mg 650 mg PO Q4H PRN 06/01/20 01/29/21 Unknown History tablet,extended release cholecalciferol (vitamin D3) 1,250 50,000 unit PO Q7D cap 06/01/20 01/29/21 Unknown History mcg (50,000 unit) capsule lactulose 10 gram/15 mL oral 10 gm PO DAILY PRN 06/01/20 01/29/21 Unknown History solution nut. tx, spec. form, See Rx Instructions PO TID ml 06/01/20 01/29/21 Unknown History lac-free,iron-fos 0.08 gram-2 kcal/mL oral liquid vits no.126-ferrous fum 1 tab PO DAILY tab 06/01/20 01/29/21 Unknown History 28 mg iron-folic acid 800 mcg tablet ropinirole 0.25 mg tablet 0.25 mg PO DAILY 06/01/20 01/29/21 Unknown History [place] 1 tab PO Q4H PRN 07/27/20 01/29/21 Unknown History Prostat See Rx Instructions .ROUTE .COMPLEX 07/27/20 01/29/21 Unknown History Therapeutic Dandruff Shampoo See Rx Instructions .ROUTE .COMPLEX 07/27/20 01/29/21 Unknown History Zofran 4 mg PO Q4H PRN 07/27/20 01/29/21 Unknown History escitalopram oxalate 20 mg PO DAILY 07/27/20 01/29/21 Unknown History fluticasone propionate 1 spray INTRANASAL DAILY 07/27/20 01/29/21 Unknown History loratadine 10 mg PO DAILY 07/27/20 01/29/21 Unknown History mirtazapine 30 mg PO DAILY 07/27/20 01/29/21 Unknown History albuterol sulfate [Ventolin HFA] 2 puff INHALATION Q4H.RESPIRATORY 07/29/20 01/29/21 Unknown Rx PRN #18 g ipratropium bromide 21 mcg (0.03 2 spray INTRANASAL TID PRN 11/01/20 01/29/21 Unknown History %) nasal spray gabapentin 300 mg PO BID 06/13/21 06/13/21 Unknown History Allergies Allergy/AdvReac Type Severity Reaction Status Date / Time metoprolol Allergy Unknown Unknown Verified 01/29/21 09:35 naproxen Allergy Unknown Verified 01/29/21 09:35 tramadol [From Ultram] Allergy Unknown Verified 01/29/21 09:35 PFSH Acute PFSH: Medical History Aspiration pneumonia Bilateral hydronephrosis Chronic kidney disease COPD (chronic obstructive pulmonary disease) Hydronephrosis Hypertension Iron deficiency anemia Major depressive disorder, recurrent, in partial remission Neurogenic bladder Peptic ulcer disease Renal mass, right Small bowel obstruction Vitamin D deficiency Surgical History History of colostomy reversal History of esophagogastroduodenoscopy (EGD) History of total left hip replacement History of transurethral resection of prostate Hx of appendectomy Family History Father , AT AGE 49 [place] No problems noted. Mother , AT AGE 58 CVA No problems noted. Sister Cancer STOMACH Social History Smoking and tobacco status: current some day smoker cigarettes [ Other cigarette details: 6yr hx ] Quit status (tobacco): not considering quitting Second hand smoke exposure: Yes Smoking risk assessment/counseling performed?: Yes Alcohol intake: former Adopted: No Caregiver/support person: No Lives independently: No Housing: Assisted Marital status: Single service: No Current occupational status: disabled Pets and animals: Yes History of recent travel: No Current gender identity: Male Vitals/I&O/Wt Last Vital Signs Temp 97.5 F L 06/13/21 04:02 Pulse 72 06/13/21 04:02 Resp 18 06/13/21 04:02 BP 151/85 06/13/21 04:02 Pulse Ox 98 06/13/21 04:02 06/12/21 06/12/21 06/13/21 14:59 22:59 06:59 Output Total 1250 / 1250 Balance -1250 / -1250 Weight last 48 hrs Weight 81.647 kg Weight 81.647 kg Physical Exam Narrative: EXAM NARRATIVE: General: No acute distress, AO x2 HEENT: PERRLA, pupils bilaterally equal and reactive, pallors not present Chest: crackles on exam B/L lower lobes CVS: S1-S2 regular, no murmurs, no tachycardia, no gallops, no rubs Abdomen: Soft, nontender, no organomegaly, bowel sounds present Neuro: No focal deficits grossly, no facial deformity, AO x2 Data : 06/12/21 19:48 06/12/21 19:48 A&P Assessment and plan (1) Chest pain: Presenting with chest pain EKG without acute ST-T wave changes, trop series without significant delta , less likely ACS CTA negative for PE, B/L changes suggestive of edema vs infiltrates no current signs or symptoms of pneumonia, hold off on abx gr 2 diastolic function on last echo, poorly compliant with restriction may be related to CHF exacerbation, lasix 40mg iv x 1 now, monitor urine output duonebs and budesonide scheduled inhalation for COPD Status: Acute Attestations Medical Necessity Statement*: observation admission for chest pain, iv diuresis, ACS rule out Coding Level of Care Code Acute Soaking Pits Supervisor for Yoshi Edwards Diagnoses Chest pain R07.9
[2021-06-13] MEDS: escitalopram 10 mg Tablet 20 MG PO (08:19)
[2021-06-13] MEDS: divalproex DR 500 mg Tablet PO ×2 (08:19→21:09)
[2021-06-13] MEDS: ropinirole 0.25 mg Tablet PO (08:19)
[2021-06-13] MEDS: aspirin 81 mg EC Tablet PO (08:19)
[2021-06-13] MEDS: levETIRAcetam 500 mg Tablet PO ×2 (08:19→21:08)
[2021-06-13] MEDS: tamsulosin 0.4 mg Capsule PO (08:19)
[2021-06-13] MEDS: docusate sodium 100 mg Capsule 200 MG PO ×2 (08:19→17:46)
[2021-06-13] MEDS: gabapentin 300 mg Capsule PO ×2 (08:19→21:08)
[2021-06-13] MEDS: pantoprazole DR 40 mg Tablet PO (08:19)
[2021-06-13] MEDS: dutasteride 0.5 mg Capsule PO (08:24)
[2021-06-13] MEDS: budesonide 0.5 mg/2 mL Neb INHALATION ×2 (08:31→10:03)
[2021-06-13] MEDS: ipratropium-albuterol 3 mL Neb INHALATION ×2 (10:03→20:08)
[2021-06-13] MEDS: HYDROcodone-acetaminophen 5-325 mg Tablet 1 TAB PO (10:10)
[2021-06-13 12:27] LABS: Iron 53 ug/dL (59-158); Percent Saturation 21.9 % (20-50); Total Iron Binding Capacity 242 mcg/dl; Unsaturated Iron Binding 189 ug/dL (112-347)
[2021-06-13 12:37] LABS: Thyroid Stimulating Hormone 2.73 uIU/mL (0.27-4.20)
[2021-06-13] MEDS: amoxicillin-clav 500-125 mg Tablet 1 TAB PO ×2 (13:49→21:08)
--- NOTE | 2021-06-13 14:23 | PC.PHAR ---
pt is from [facility] from [facility] verified pts medication
[2021-06-13] MEDS: levoFLOXacin 500 mg Tablet PO (16:03)
[2021-06-13] MEDS: atorvastatin 40 mg Tablet 20 MG PO (21:08)
[2021-06-13] MEDS: mirtazapine 30 mg Tablet PO (21:08)
[2021-06-14 03:48] VITALS: BP 166/77; PULSE 77; RESP 21; TEMP 36.5; O2SAT 99
[2021-06-14 03:50] LABS: Coronavirus Test Green County Not Detected
[2021-06-14] MEDS: levoFLOXacin 500 mg Tablet PO (05:35)
[2021-06-14 06:00] VITALS: BMI 24.4
[2021-06-14 06:25] LABS: Basophils % 0.5 %; Eosinophils # 0.6 10^3/uL (0.0-0.8); Eosinophils % 7.4 %; Hematocrit 39.6 % (42.0-52.0); Hemoglobin 12.6 g/dL (11.7-16.6); Lymphocytes # 0.6 10^3/uL (0.8-4.8); Lymphocytes % 7.1 %; Mean Corpuscular HGB Conc 31.8 g/dL (30.0-36.0); Mean Corpuscular Hemoglobin 30.4 pg (28.0-34.0); Mean Corpuscular Volume 95.7 fl (80-94); Mean Platelet Volume 9.9 fL (7.4-10.4); Monocytes # 0.9 10^3/uL (0.2-0.9); Monocytes % 10.5 %; Neutrophils # 6.39 10^3/uL (1.8-7.7); Neutrophils % 74.2 %; Nucleated Red Blood Cells % 0 %; Platelet Count 202 10^3/cmm (130-400); Red Blood Count 4.14 10^6/uL (4.1-5.3); Red Cell Distribution Width 13.2 % (12.1-15.1); White Blood Count 8.6 10^3/uL (4.0-10.0)
[2021-06-14 06:48] LABS: Alanine Aminotransferase 6 U/L (0-41); Albumin Level 3.5 g/dL (3.5-5.2); Alkaline Phosphatase 49 IU/L (40-130); Anion Gap 14.1 (5-19); Aspartate Amino Transferase 16 U/L (0-40); Blood Urea Nitrogen 27 mg/dL (8-23); Calcium 9.2 mg/dL (8.5-10.5); Carbon Dioxide 29 mmol/L (22-29); Chloride 97 mmol/L (98-107); Globulin 3.4 g/dL (1.3-4.6); Glucose 80 mg/dL (65-115); Osmolality Calculated 284 mOsm/kg (285-295); Potassium 5.1 mmol/L (3.5-5.1); Sodium 135 mmol/L (136-145); Total Bilirubin 0.2 mg/dL (0.15-1.2); Total Protein 6.9 g/dL (6.6-8.7)
[2021-06-14 07:51] VITALS: BP 132/78; PULSE 75; RESP 17; TEMP 36.6; O2SAT 98
[2021-06-14] MEDS: amoxicillin-clav 500-125 mg Tablet 1 TAB PO ×2 (08:11→14:14)
[2021-06-14] MEDS: tamsulosin 0.4 mg Capsule PO (08:11)
[2021-06-14] MEDS: ropinirole 0.25 mg Tablet PO (08:11)
[2021-06-14] MEDS: gabapentin 300 mg Capsule PO (08:11)
[2021-06-14] MEDS: pantoprazole DR 40 mg Tablet PO (08:11)
[2021-06-14] MEDS: dutasteride 0.5 mg Capsule PO (08:11)
[2021-06-14] MEDS: escitalopram 10 mg Tablet 20 MG PO (08:11)
[2021-06-14] MEDS: docusate sodium 100 mg Capsule 200 MG PO (08:11)
[2021-06-14] MEDS: divalproex DR 500 mg Tablet PO (08:11)
[2021-06-14] MEDS: aspirin 81 mg EC Tablet PO (08:11)
[2021-06-14] MEDS: levETIRAcetam 500 mg Tablet PO (08:11)
[2021-06-14 09:15] VITALS: PULSE 79; RESP 19; O2SAT 95
[2021-06-14] MEDS: ipratropium-albuterol 3 mL Neb INHALATION (09:15)
[2021-06-14] MEDS: budesonide 0.5 mg/2 mL Neb INHALATION (09:15)
--- NOTE | 2021-06-14 10:33 | P.DS_ITS ---
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 History obtained by talking to MD staff, patient unable to tell clearly why he is at the hospital except that he had some recent chest pain and possible pneumonia. He has been in his baseline state of health until yesterday when he started c/o chest pain, left sided, non radiating. His rib was thought to be more protruding than usual , no recent falls. He is wheelchair bound. No recent aspiration events, no coughing, expectoration. No recent fever. Last tested routinely for COVID on 05/31, was negative. CTA chest negative for PE. Nonspecific interstitial opacities in the dependent portions of the lungs including the lower lobes and posterior portions of the right middle lobe left upper lobe consistent with pulmonary edema versus pulmonary interstitial pneumonia. He is supposed to be on fluid restriction 1800 cc per day, but poorly compliant with the same. no diuretics at the MD. Patient admitted hospital for further management and evaluation of chest pain with possible hypoxia. During hospitalization patient was back to his home oxygen supplementation and patient did not have any further chest pain. Troponin cycle was negative. On admission patient was found to be in mild fluid overload for which he was given IV Lasix. Patient's most recent echocardiogram from July 2020 showed an EF of 58% with grade 2 diastolic dysfunction without valvular abnormalities. Patient patient did have urine studies concerning for UTI but he denied any dysuria. Urine culture is pending. Blood cultures so far has remained negative and patient has remained afebrile hemodynamically stable. COVID-19 was ruled out. He is being discharged back to detention in hemodynamically stable condition with advised to take Augmentin and Levaquin for 4 more days to finish a 5-day course. He started on continuous schedule 20 mg oral Lasix daily with 10 mg potassium replacement. He is once again counseled in detail to be adherent to dietary modifications and fluid restriction. Physical Exam Narrative: EXAM NARRATIVE: General: No acute distress, AO x2 HEENT: PERRLA, pupils bilaterally equal and reactive, pallors not present Chest: crackles on exam B/L lower lobes CVS: S1-S2 regular, no murmurs, no tachycardia, no gallops, no rubs Abdomen: Soft, nontender, no organomegaly, bowel sounds present Neuro: No focal deficits grossly, no facial deformity, AO x2 Discharge Data Data Completed and Pending: Completed Studies During Hospitalization Category Date Time Status CT angio chest PE protcl [id number] Urge nt Cat Scan 06/12/21 20:[address] head wo con* [id number] Urgent Cat Scan 06/12/21 20:28 Completed XR chest 1V [place]berto ble [id number] Stat Exams 06/12/21 19:29 Completed Pending at discharge Category Date Time Status MRSA by PCR Routi ne Lab 06/13/21 17:50 Received Sputum Culture an d Gram Stain Stat Lab 06/13/21 14:17 Uncollected Urine Culture Sta t Lab 06/12/21 19:52 Received Labs from last 24 hours 06/14/21 06/14/21 06/13/21 05:56 05:56 01:42 WBC 8.6 RBC 4.14 Hgb 12.6 Hct 39.6 L MCV 95.7 H MCH 30.4 MCHC 31.8 RDW 13.2 Plt Count 202 MPV 9.9 Neut % (Auto) 74.2 Lymph % (Auto) 7.1 [place] % (Auto) 10.5 Eos % (Auto) 7.4 Baso % (Auto) 0.5 Neut # (Auto) 6.39 Lymph # (Auto) 0.6 L [place] # (Auto) 0.9 Eos # (Auto) 0.6 Baso # (Auto) 0.0 Nucleated RBC % (a uto) 0 Nucleated RBCs # 0.0 Sodium 135 L Potassium 5.1 Chloride 97 L Carbon Dioxide 29 Anion Gap 14.1 BUN 27 H Creatinine 1.6 H GFR Calculation Not Reportable Glucose 80 Calculated Osmolal ity 284 L Calcium 9.2 Iron TIBC % Saturation Unsat Iron Binding Total Bilirubin 0.2 AST 16 ALT 6 Alkaline Phosphata se 49 Total Protein 6.9 Albumin 3.5 Globulin 3.4 TSH 2.73 Nasal/Oral COVID-1 9 PCR 06/13/21 06/12/21 01:42 23:30 WBC RBC Hgb Hct MCV MCH MCHC RDW Plt Count MPV Neut % (Auto) Lymph % (Auto) [place] % (Auto) Eos % (Auto) Baso % (Auto) Neut # (Auto) Lymph # (Auto) [place] # (Auto) Eos # (Auto) Baso # (Auto) Nucleated RBC % (a uto) Nucleated RBCs # Sodium Potassium Chloride Carbon Dioxide Anion Gap BUN Creatinine GFR Calculation Glucose Calculated Osmolal ity Calcium Iron 53 L TIBC 242 % Saturation 21.9 Unsat Iron Binding 189 Total Bilirubin AST ALT Alkaline Phosphata se Total Protein Albumin Globulin TSH Nasal/Oral COVID-1 9 PCR Not detected Addt'l Data from Hospital Stay: Laboratory Results WBC 8.6 10^3/uL (4.0- 10.0) 06/14/21 05:56 RBC 4.14 10^6/uL (4.1 -5.3) 06/14/21 05:56 Hgb 12.6 g/dL (11.7-1 6.6) 06/14/21 05:56 Hct 39.6 % (42.0-52.0 ) L 06/14/21 05:56 MCV 95.7 fl (80-94) H 06/14/21 05:56 MCH 30.4 pg (28.0-34. 0) 06/14/21 05:56 MCHC 31.8 g/dL (30.0-3 6.0) 06/14/21 05:56 RDW 13.2 % (12.1-15.1 ) 06/14/21 05:56 Plt Count 202 10^3/cmm (130 -400) 06/14/21 05:56 MPV 9.9 fL (7.4-10.4) 06/14/21 05:56 Neut % (Auto) 74.2 % 06/14/21 05:56 Lymph % (Auto) 7.1 % 06/14/21 05:56 [place] % (Auto) 10.5 % 06/14/21 05:56 Eos % (Auto) 7.4 % 06/14/21 05:56 Baso % (Auto) 0.5 % 06/14/21 05:56 Neut # (Auto) 6.39 10^3/uL (1.8 -7.7) 06/14/21 05:56 Lymph # (Auto) 0.6 10^3/uL (0.8- 4.8) L 06/14/21 05:56 [place] # (Auto) 0.9 10^3/uL (0.2- 0.9) 06/14/21 05:56 Eos # (Auto) 0.6 10^3/uL (0.0- 0.8) 06/14/21 05:56 Baso # (Auto) 0.0 10^3/uL (0.0- 0.1) 06/14/21 05:56 Nucleated RBC % (a uto) 0 % 06/14/21 05:56 Nucleated RBCs # 0.0 /100WBC 06/14/21 05:56 Sodium 135 mmol/L (136-1 45) L 06/14/21 05:56 Potassium 5.1 mmol/L (3.5-5 .1) 06/14/21 05:56 Chloride 97 mmol/L (98-107 ) L 06/14/21 05:56 Carbon Dioxide 29 mmol/L (22-29) 06/14/21 05:56 Anion Gap 14.1 (5-19) 06/14/21 05:56 BUN 27 mg/dL (8-23) H 06/14/21 05:56 Creatinine 1.6 mg/dL (0.7-1. 2) H 06/14/21 05:56 GFR Calculation Not Reportable 06/14/21 05:56 Glucose 80 mg/dL (65-115) 06/14/21 05:56 POC Glucose 80 mg/dL (70-110) 06/12/21 19:48 Calculated Osmolal ity 284 mOsm/kg (285- 295) L 06/14/21 05:56 Calcium 9.2 mg/dL (8.5-10 .5) 06/14/21 05:56 Iron 53 ug/dL (59-158) L 06/13/21 01:42 TIBC 242 mcg/dl 06/13/21 01:42 % Saturation 21.9 % (20-50) 06/13/21 01:42 Unsat Iron Binding 189 ug/dL (112-34 7) 06/13/21 01:42 Total Bilirubin 0.2 mg/dL (0.15-1 .2) 06/14/21 05:56 AST 16 U/L (0-40) 06/14/21 05:56 ALT 6 U/L (0-41) 06/14/21 05:56 Alkaline Phosphata se 49 IU/L (40-130) 06/14/21 05:56 Troponin T Baselin e 49 ng/L (0-15) H 06/12/21 19:48 Troponin T 120 Min lime 46.69 ng/L (0-15) H 06/12/21 21:18 Delta Troponin T -2.31 ABS# (0-10) L 06/12/21 21:18 Troponin T Hi Sens 6Hr 44.81 ng/L (0-15) H 06/13/21 01:42 Troponin T Hi Sens 6Hr Delta -4.19 ng/L (0-12) L 06/13/21 01:42 NT-Pro-B Natriuret Pep 1290 pg/mL (0-125 ) H 06/12/21 19:48 Total Protein 6.9 g/dL (6.6-8.7 ) 06/14/21 05:56 Albumin 3.5 g/dL (3.5-5.2 ) 06/14/21 05:56 Globulin 3.4 g/dL (1.3-4.6 ) 06/14/21 05:56 Lipase 44 U/L (13-60) 06/12/21 19:48 Procalcitonin 0.12 ng/mL (0-0.5 ) 06/12/21 21:18 TSH 2.73 uIU/mL (0.27 -4.20) 06/13/21 01:42 Urine Color Yellow (Yellow) 06/12/21 19:52 Urine Appearance Cloudy (CLEAR) 06/12/21 19:52 Urine pH 5 (5-7) 06/12/21 19:52 Ur Specific Gravit y 1.015 (1.005-1.0 30) 06/12/21 19:52 Urine Protein Neg (Negative) 06/12/21 19:52 Urine Glucose (UA) 2+ (Normal) H 06/12/21 19:52 Urine Ketones Negative (Negati ve) 06/12/21 19:52 Urine Blood 2+ (Negative) H 06/12/21 19:52 Urine Nitrate Positive (Negati ve) H 06/12/21 19:52 Urine Bilirubin Neg (Negative) 06/12/21 19:52 Urine Urobilinogen Norm mg/dL (Negat conchita) 06/12/21 19:52 Ur Leukocyte Aditi ase 2+ (Negative) H 06/12/21 19:52 Urine RBC 5-10 /hpf (0-2) H 06/12/21 19:52 Urine WBC >100 /hpf (0-5) H 06/12/21 19:52 Ur Squamous Epith Cells 0-4 /hpf (0-5) H 06/12/21 19:52 Amorphous Sediment Not Reportable 06/12/21 19:52 Urine Bacteria 1+ /hpf (NONE) H 06/12/21 19:52 Nasal/Oral COVID-1 9 PCR Not detected 06/12/21 23:30 SARS-CoV-2 Ag (Rap id) Negative (Negati ve) 06/12/21 19:50 Impressions Chest X-Ray 06/12/21 19:29 IMPRESSION: 1. Emphysematous changes. 2. Right hilar to lower lobe and patchy left mid to lower lung field atelectasis versus infiltrate. Radiation Dose CTDIVOL = (mGy): DLP = (mGy-cm) Head CT 06/12/21 20:28 IMPRESSION: Negative for intracranial hemorrhage or mass effect Radiation Dose CTDIVOL = (mGy): DLP = 912.74 (mGy-cm) Chest CTA 06/12/21 20:31 IMPRESSION: 1. Mild paraseptal emphysema. 2. Nonspecific interstitial opacities in the dependent portions of the lungs including the lower lobes and posterior portions of the right middle lobe left upper lobe consistent with pulmonary edema versus pulmonary interstitial pneumonia. 3. Severe centrilobular emphysema. 4. Unopacified pulmonary veins in the right lower lobe which are somewhat t hickened with no obvious pulmonary embolus. Radiation Dose CTDIVOL = (mGy): DLP = 551.42 (mGy-cm) Microbiology 06/12/21 19:52 Urine Kidney Bacterial Antigens - Final 06/12/21 19:52 Unknown Source Legionella Urinary Antigen - Final Vitals: Last Vital Signs Temp 97.9 F 06/14/21 07:51 Pulse 79 06/14/21 09:15 Resp 19 H 06/14/21 09:15 BP 132/78 06/14/21 07:51 Pulse Ox 95 06/14/21 09:15 Discharge Plan Discharge Patient Disposition: Home Condition: Stable Prescriptions: New levofloxacin 500 mg Tablet 500 mg PO DAILY@0600 4 Days Qty: 4 RF: 0 amoxicillin-pot clavulanate 500-125 mg Tablet 1 tab PO TID 4 Days Qty: 12 RF: 0 furosemide [Lasix] 20 mg tablet 20 mg PO DAILY 14 Days Qty: 14 RF: 0 Continued aspirin [Adult Low Dose Aspirin] 81 mg tablet,delayed release (DR/EC) 81 mg PO DAILY@08 RF: 0 dutasteride [Avodart] 0.5 mg capsule 0.5 mg PO DAILY@20 RF: 0 esomeprazole magnesium [Nexium] 40 mg capsule,delayed release(DR/EC) 40 mg PO DAILY@08 RF: 0 levetiracetam [Keppra] 500 mg tablet 500 mg PO BID@, RF: 0 simvastatin 40 mg tablet 40 mg PO DAILY@20 RF: 0 docusate sodium [Colace] 100 mg capsule 200 mg PO BID@,20 RF: 0 tamsulosin [Flomax] 0.4 mg capsule 0.4 mg PO DAILY@20 RF: 0 fluticasone propion-salmeterol [Advair Diskus] 250-50 mcg/dose blister with device 1 inh INHALATION BID@ RF: 0 polyethylene glycol 3350 [Miralax] 17 gram/dose powder 17 gm PO DAILY PRN (Reason: Constipation) RF: 0 divalproex 500 mg tablet,delayed release (DR/EC) 500 mg PO BID Qty: 60 RF: 4 ipratropium bromide 0.03 % spray,non-aerosol 2 spray intranasal TID PRN (Reason: unknown) RF: 0 acetaminophen 650 mg tablet extended release 650 mg PO Q4H PRN (Reason: Pain) RF: 0 lactulose 10 gram/15 mL solution 10 gm PO DAILY PRN (Reason: Constipation) RF: 0 cholecalciferol (vitamin D3) 1,250 mcg (50,000 unit) capsule 50,000 unit PO Q7D RF: 0 TwoCal HN 0.08-2 gram-kcal/mL liquid See Rx Instructions PO TID RF: 0 Classic 28 mg iron- 800 mcg tablet 1 tab PO DAILY@08 RF: 0 ondansetron HCl [Zofran] 4 mg Tablet 4 mg PO Q4H PRN (Reason: Nausea And Vomiting) RF: 0 Therapeutic Dandruff Shampoo 3 % Shampoo See Rx Instructions .ROUTE .COMPLEX RF: 0 mirtazapine 15 mg Tablet 30 mg PO DAILY@20 RF: 0 fluticasone propionate 50 mcg/actuation [place],Suspension 1 spray INTRANASAL DAILY@08 RF: 0 Prostat See Rx Instructions .ROUTE .COMPLEX RF: 0 albuterol sulfate [Ventolin HFA] 90 mcg/actuation Hfa Aerosol Inhaler 2 puff inhalation Q4H.RESPIRATORY PRN (Reason: Shortness Of Breath) Qty: 18 RF: 0 gabapentin 300 mg Capsule 300 mg PO BID@08,20 RF: 0 albuterol sulfate 90 mcg/actuation Hfa Aerosol Inhaler 2 puff INHALATION Q4H RF: 0 melatonin 5 mg Tablet 10 mg PO BEDTIME@20 RF: 0 Requip 0.25 mg Tablet 0.25 mg PO DAILY@20 RF: 0 Zyrtec 10 mg Tablet 10 mg PO DAILY@08 RF: 0 Glenn 5-325 mg Tablet 1 tab PO Q4H PRN (Reason: Pain) RF: 0 Lexapro 10 mg Tablet 10 mg PO DAILY@08 RF: 0 Discharge Orders: Discharge Order (Routine); Ordered 06/14/21 Ordered By: Bruno Morales Referrals: David Austin [Primary Care Provider] - 7-10 days Discharge Diet: As Directed Discharge Activity: Resume usual activity Patient Instructions: Opioid Safety Activity Restrictions/Additional Instructions: Augmentin and Levaquin for next 4 days to finish a 5-day course. Lasix 20 mg oral daily. Repeat BMP in 1 week. Discharge Attestations Time Spent in Discharge Care*: greater than 30 min Quality Metrics Clinical Quality Measures During this hospital stay, did patient experience: None Coding Level of Care Code Acute Chg FW DC note Diagnoses Chest pain R07.9
[2021-06-14 11:32] VITALS: BP 130/74; PULSE 74; RESP 18; TEMP 36.9; O2SAT 98
--- NOTE | 2021-06-14 12:30 | PC.NURSE ---
This nurse called to give report on patient at this time. Case management notified at this time for transportation to be set up.
[2021-06-14 12:31] VITALS: BP 130/74; PULSE 74; RESP 18; TEMP 36.9; O2SAT 98
--- NOTE | 2021-06-15 09:10 | PC.SOCIAL ---
discharge follow up call made, spoke with patients nurse devon at [facility]. She reports patient is wandering around, doing good. discussed medications with patient, patient is taking new medications along with regular scheduled medications. patient isn't currently taking a potassium replacement, Devon will request this from the physician at the long-term. No other questions or concerns voiced.
--- NOTE | 2021-06-15 13:54 | PC.SOCIAL ---
positive nose swab for MRSA. results faxed to [facility], where patient is a resident. Tried to reach pts nurse but was unable to reach over the phone, will continue to try. Attempted to reach Dr. Nixon, will continue to try to give results and see if any changes to medications need to be made.
--- NOTE | 2021-06-15 14:19 | PC.RESP ---
SMOKING CESSATION AND PULMONARY REHAB INFORMATION SENT TO PATIENT.
== END 2021-06-14 15:00 | disposition home or self-care (01) ==
LOC: ER 23:26 → MEDSURG 06-13 00:14
PROVIDERS: Admitting Provider Student in an Organized Health Care Education/Training Program; Emergency Provider Emergency Medicine; PCP Family Medicine; Visit Provider Student in an Organized Health Care Education/Training Program
DX: R07.9 Chest pain, unspecified (principal); F03.90 Unspecified dementia, unspecified severity, without behavioral disturbance, psychotic disturbance, mood disturbance, and anxiety; J44.9 Chronic obstructive pulmonary disease, unspecified; Z79.82 Long term (current) use of aspirin; I12.9 Hypertensive chronic kidney disease with stage 1 through stage 4 chronic kidney disease, or unspecified chronic kidney disease; N18.9 Chronic kidney disease, unspecified; Z87.11 Personal history of peptic ulcer disease; F17.210 Nicotine dependence, cigarettes, uncomplicated
CPT/HCPCS: 36415; 36416; 70450; 71045; 71275; 80053; 81001; 82962; 83540; 83550; 83690; 83880; 84145; 84443; 84484; 85025; 86403; 87077; 87086; 87186; 87426; 87449; 87635; 87641; 93005; 94640; 96374; 99285; G0378; J1940; J7626; Q9967

== ENCOUNTER 2022-04-25 17:25 | Emergency (ER) | payer MEDICARE, MEDICAID, SELFPAY ==
--- NOTE | 2022-04-25 | CTR_ITS ---
[facility] Final Radiology Report Call: [phone] assistance Online chat: [email or web address] Name: LILLI RODRIGES Age: 72Years M Date: 04/25/2022 SSN: -- : [id number] Study: CT HEAD WO Requesting Physician: LUCA BOTELLO Images: [id number] Provided Clinical History: ams PROCEDURE INFORMATION: Exam: CT Head Without Contrast Exam date and time: 04/25/2022 8:23 PM Age: 72 years old Clinical indication: Altered mental status/memory loss; Patient HX: Patient arrived from long-term for psych eval for violent behavior. ; Additional info: AMS TECHNIQUE: Imaging protocol: Computed tomography of the head without contrast. Radiation optimization: All CT scans at this facility use at least one of these dose optimization techniques: automated exposure control; mA and/or kV adjustment per patient size (includes targeted exams where dose is matched to clinical indication); or iterative reconstruction. COMPARISON: CT head wo con* [id number] 06/12/2021 9:45 PM RADIATION DOSE METRICS: Total DLP (mGy-cm): 1109.38 FINDINGS: Brain: Moderate diffuse white matter disease likely reflecting chronic microvascular ischemic changes. Cerebral ventricles: No ventriculomegaly. Paranasal sinuses: Visualized sinuses are unremarkable. No fluid levels. Mastoid air cells: Visualized mastoid air cells are well aerated. Bones/joints: Unremarkable. No acute fracture. Soft tissues: Unremarkable. IMPRESSION: Negative for intracranial hemorrhage or mass effect. Thank you for allowing us to participate in the care of your patient. Dictated and Authenticated by: Juan Jiménez MD 04/25/2022 8:37 PM Central Time ([place] & [place]) [facility]
[2022-04-25 18:16] VITALS: BP 102/62; PULSE 82; RESP 16; TEMP 36.9; O2SAT 96; BMI 18.1
--- NOTE | 2022-04-25 18:28 | XRR_ITS ---
PROCEDURE INFORMATION: Exam: XR Chest Exam date and time: 04/25/2022 6:44 PM Age: 72 years old Clinical indication: Screening exam; Other screening; Additional info: Psych clearance TECHNIQUE: Imaging protocol: Radiologic exam of the chest. Views: 1 view. COMPARISON: CR XR chest 1V portable [id number] 06/12/2021 7:38 PM FINDINGS: Lungs: Emphysematous changes. Bilateral hilar to lower lobe atelectasis versus minimal infiltrate. Pleural spaces: Unremarkable. No pleural effusion. No pneumothorax. Heart/Mediastinum: Borderline cardiomegaly. Bones/joints: Unremarkable. XR/XR chest 1V portable [id number] IMPRESSION: 1. Emphysematous changes. 2. Borderline cardiomegaly. 3. Bilateral hilar to lower lobe atelectasis versus minimal infiltrate
--- NOTE | 2022-04-25 18:32 | W.ED.PSYCHS ---
HPI - Psych General: Chief Complaint: Psychiatric Symptoms Stated Complaint: VIOLENT BEHAVIOR/ CHANGE IN BEHAVIOR Time Seen by Provider: 04/25/22 18:28 [facility] ED PFSH: Medical History Aspiration pneumonia Bilateral hydronephrosis Chronic kidney disease COPD (chronic obstructive pulmonary disease) Dementia Dysphagia Hydronephrosis Hypertension Influenza B Iron deficiency anemia Major depressive disorder, recurrent episode, in partial remission with anxious distress Major depressive disorder, recurrent, in partial remission Neurogenic bladder Peptic ulcer disease Pyuria Recurrent aspiration pneumonia Renal mass, right Small bowel obstruction Vitamin D deficiency Surgical History History of colostomy reversal History of esophagogastroduodenoscopy (EGD) History of total left hip replacement History of transurethral resection of prostate Hx of appendectomy Family History Father , AT AGE 49 MD No problems noted. Mother , AT AGE 58 CVA No problems noted. Sister Cancer STOMACH Social History Smoking and tobacco status: current some day smoker cigarettes [ Other cigarette details: 6yr hx] Quit status (tobacco): not considering quitting Second hand smoke exposure: Yes Smoking risk assessment/counseling performed?: Yes Alcohol intake: former Adopted: No Caregiver/support person: No Lives independently: No Housing: Jail Marital status: Single service: No Current occupational status: disabled Pets and animals: Yes History of recent travel: No Current gender identity: Male Course Vital Signs: Vital signs: Vital Signs Temperature 98.5 F 04/25/22 18:16 Pulse Rate 82 04/25/22 18:16 Respiratory Rate 16 04/25/22 18:16 Blood Pressure 102/62 04/25/22 18:16 Pulse Oximetry 96 04/25/22 18:16 Oxygen Delivery Me thod 04/25/22 18:16 Discharge Plan Discharge Patient Disposition: Home Clinical Impression: Adult general medical exam Condition: Stable Prescriptions: No Action aspirin [Adult Low Dose Aspirin] 81 mg tablet,delayed release (DR/EC) 81 mg PO DAILY@08 dutasteride [Avodart] 0.5 mg capsule 0.5 mg PO DAILY@20 esomeprazole magnesium [Nexium] 40 mg capsule,delayed release(DR/EC) 40 mg PO DAILY@08 levetiracetam [Keppra] 500 mg tablet 500 mg PO BID@08,20 simvastatin 40 mg tablet 40 mg PO DAILY@20 docusate sodium [Colace] 100 mg capsule 200 mg PO BID@08,20 tamsulosin [Flomax] 0.4 mg capsule 0.4 mg PO DAILY@20 fluticasone propion-salmeterol [Advair Diskus] 250-50 mcg/dose blister with device 1 inh INHALATION BID@07,19 polyethylene glycol 3350 [Miralax] 17 gram/dose powder 17 gm PO DAILY PRN (Reason: Constipation) divalproex 500 mg tablet,delayed release (DR/EC) 500 mg PO BID Qty: 60 4RF Rx Instructions: @08:00,20:00 ipratropium bromide 0.03 % spray,non-aerosol 2 spray intranasal TID PRN (Reason: unknown) Rx Instructions: administer into each nostril acetaminophen 650 mg tablet extended release 650 mg PO Q4H PRN (Reason: Pain) lactulose 10 gram/15 mL solution 10 gm PO DAILY PRN (Reason: Constipation) cholecalciferol (vitamin D3) 1,250 mcg (50,000 unit) capsule 50,000 unit PO Q7D Rx Instructions: on fri Two HN 0.08-2 gram-kcal/mL liquid See Rx Instructions PO TID Rx Instructions: 30mL PO three times daily @08,14,20 Classic 28 mg iron- 800 mcg tablet 1 tab PO DAILY@08 ondansetron HCl [Zofran] 4 mg Tablet 4 mg PO Q4H PRN (Reason: Nausea And Vomiting) Therapeutic Dandruff Shampoo 3 % Shampoo See Rx Instructions .ROUTE .COMPLEX Rx Instructions: apply small amount topically two times a week mirtazapine 15 mg Tablet 30 mg PO DAILY@20 fluticasone propionate 50 mcg/actuation [place],Suspension 1 spray INTRANASAL DAILY@08 Prostat See Rx Instructions .ROUTE .COMPLEX Rx Instructions: 30cc po once a day@08 albuterol sulfate [Ventolin HFA] 90 mcg/actuation Hfa Aerosol Inhaler 2 puff inhalation Q4H.RESPIRATORY PRN (Reason: Shortness Of Breath) Qty: 18 0RF gabapentin 300 mg Capsule 300 mg PO BID@08,20 albuterol sulfate 90 mcg/actuation Hfa Aerosol Inhaler 2 puff INHALATION Q4H Rx Instructions: @08:00,12:00,16:00,20:00 melatonin 5 mg Tablet 10 mg PO BEDTIME@20 ropinirole 0.25 mg Tablet 0.25 mg PO DAILY@20 Zyrtec 10 mg Tablet 10 mg PO DAILY@08 hydrocodone-acetaminophen 5-325 mg Tablet 1 tab PO Q4H PRN (Reason: Pain) Lexapro 10 mg Tablet 10 mg PO DAILY@08 Discharge Orders: Discharge ED (Routine); Ordered 04/25/22 Ordered By: Rosendo Felton Referrals: David Austin [Primary Care Provider] - Discharge Diet: Advance as tolerated Discharge Activity: Increase activity as tolerated Activity Restrictions/Additional Instructions: Come back if you have any new or concerning issues. Please come back to the emergency room if you need help, have any hallucinations, or you have any depression or have thoughts about hurting yourself or other people. Coding Level of Care Code ED [place] [employer] for Yoshi Edwards
--- NOTE | 2022-04-25 19:00 | PC.NURSE ---
Report called to [place] at [facility]
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
--- NOTE | 2022-04-25 19:12 | PC.NURSE ---
EMS transportation notified. Report given to shift superintendent caustic cresylate RNCarlotta
[2022-04-25 19:54] VITALS: BP 110/74; PULSE 78; RESP 17; O2SAT 97
[2022-04-25 19:56] VITALS: BP 110/74; PULSE 78; RESP 17; TEMP 36.9; O2SAT 97
--- NOTE | 2022-04-25 20:12 | ECG_ITS ---
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 Measurements Intervals Pedro Rate: 65 P: 70 CT: 182 QRS: 20 QRSD: 78 T: 29 QT: 401 QTc: 420 Interpretive Statements SINUS RHYTHM VOLTAGE CRITERIA FOR LVH [MEETS CRITERIA IN ONE OF: R(aVL), S(V1), R(V5), R(V5/V6)+S(V1)] Compared to ECG 06/12/2021 19:06:21 Left ventricular hypertrophy now present Electronically Signed On 04-25-2022 22:51:56 CDT by Edson Arambula M.D. [email or web address] [email or web address] centerARCA [id number]
[2022-04-25 21:08] LABS: Basophils % 0.6 %; Eosinophils # 0.5 10^3/uL (0.0-0.8); Eosinophils % 6.7 %; Hematocrit 38.3 % (42.0-52.0); Hemoglobin 11.7 g/dL (11.7-16.6); Lymphocytes # 1.6 10^3/uL (0.8-4.8); Lymphocytes % 22.6 %; Mean Corpuscular HGB Conc 30.5 g/dL (30.0-36.0); Mean Corpuscular Hemoglobin 29.3 pg (28.0-34.0); Mean Corpuscular Volume 95.8 fl (80-94); Mean Platelet Volume 9.2 fL (7.4-10.4); Monocytes # 0.6 10^3/uL (0.2-0.9); Monocytes % 8.5 %; Neutrophils % 61.2 %; Nucleated Red Blood Cells % 0 %; Platelet Count 202 10^3/cmm (130-400); Red Cell Distribution Width 13.9 % (12.1-15.1)
[2022-04-25 21:40] LABS: Troponin(5th) Baseline 34 ng/L (0-15)
[2022-04-25 21:50] LABS: Alanine Aminotransferase 7 U/L (0-41); Albumin Level 3.2 g/dL (3.5-5.2); Alkaline Phosphatase 78 U/L (40-130); Anion Gap 14.2 (5-19); Aspartate Amino Transferase 17 U/L (0-40); Blood Urea Nitrogen 42 mg/dL (8-23); Carbon Dioxide 23 mmol/L (22-29); Chloride 99 mmol/L (98-107); Free T4 Free Thyroxine 1.05 ng/dL (0.82-1.77); Globulin 4.7 g/dL (1.3-4.6); Glucose 62 mg/dL (65-115); Lipase 55 U/L (13-60); Osmolality Calculated 282 mOsm/kg (285-295); Potassium 4.2 mmol/L (3.5-5.1); Sodium 132 mmol/L (136-145); Thyroid Stimulating Hormone 3.76 uIU/mL (0.27-4.20); Total Bilirubin 0.2 mg/dL (0.15-1.2); Total Protein 7.9 g/dL (6.6-8.7)
[2022-04-25 21:53] LABS: Acetaminophen < 5.0 ug/mL (10-30); Alcohol Level < 10 mg/dL (0-10); Salicylate < 0.3 mg/dL (3-10)
[2022-04-25 22:19] LABS: Blood Urine Neg (Negative); Glucose Urine UA Norm (Normal); Ketones Urine Negative (Negative); Protein Urine Neg (Negative); Specific Gravity, Urine 1.015 (1.005-1.030); Urine Appearance Hazy (CLEAR); Urine Color Yellow (Yellow); pH Urine 6 (5-7)
[2022-04-25 22:20] LABS: Add Urine Microscopic? YES; Bacteria Urine 4+ /hpf; Bilirubin Urine Neg (Negative); Leukocyte Esterase Urine 2+ (Negative); Nitrate Urine Positive (Negative); RBC Urine 0-4 /hpf (0-2); Squamous Epithelial Cell Urine 0-4 /hpf (0-5); Urobilinogen Urine Norm (Negative); WBC Urine TOO NUMEROUS TO CNT /hpf (0-5)
[2022-04-25 22:21] LABS: Add Urine Culture? Yes; Cocaine Screen Urine Negative (Negative); PCP Screen Urine Negative (Negative); THC Screen Urine Negative (Negative)
[2022-04-25 22:22] LABS: Amphetamines Screen Urine Negative (Negative); Barbiturates Screen Urine Negative (Negative); Benzodiazepines Screen Urine Negative (Negative); Opiate Screen Urine Positive (Negative)
[2022-04-25] MEDS: amoxicillin-clav 875-125 mg Tablet 1 TAB PO (22:23)
--- NOTE | 2022-04-25 22:52 | PC.NURSE ---
Report/update called to [facility], patient transported via EMS
== END 2022-04-25 23:00 | disposition home or self-care (01) ==
PROVIDERS: Emergency Provider Emergency Medicine; PCP Family Medicine
DX: R45.6 Violent behavior (principal); J18.9 Pneumonia, unspecified organism; N39.0 Urinary tract infection, site not specified; Z79.82 Long term (current) use of aspirin
CPT/HCPCS: 70450; 71045; 80053; 80306; 80307; 81001; 83690; 84439; 84443; 84484; 85025; 87077; 87086; 87186; 93005; 99285

== ENCOUNTER 2022-11-29 09:54 | Emergency (ER) | payer MEDICARE, MEDICAID, SELFPAY ==
[2022-11-29] VITALS (12 sets, daily range): BP systolic 89–144; BP diastolic 54–78; PULSE 85–106; RESP 16–20; TEMP 36.6; O2SAT 92–95
--- NOTE | 2022-11-29 10:14 | CTR_ITS ---
PROCEDURE INFORMATION: Exam: CT Abdomen And Pelvis With Contrast Exam date and time: 11/29/2022 11:52 AM Age: 72 years old Clinical indication: Abdominal pain; Additional info: Llq tenderness, n/v TECHNIQUE: Imaging protocol: Computed tomography of the abdomen and pelvis with contrast. Radiation optimization: All CT scans at this facility use at least one of these dose optimization techniques: automated exposure control; mA and/or kV adjustment per patient size (includes targeted exams where dose is matched to clinical indication); or iterative reconstruction. Contrast material: OMNI 350; Contrast volume: 100 ml; Contrast route: INTRAVENOUS (IV); REPORTING DATA: Count of CT and Cardiac NM exams in prior 12 months: This patient has received 2 known CTs and 0 known cardiac nuclear medicine studies in the 12 months prior to the current study. COMPARISON: CT abdomen pelvis wo con [id number] 07/27/2020 3:57 PM RADIATION DOSE METRICS: Total DLP (mGy-cm): 268.83 FINDINGS: Lungs: There is a left lower lobe pneumonia. Liver: Normal. No mass. Gallbladder and bile ducts: Cholelithiasis. The common bile duct is dilated to a diameter of 12 mm. Pancreas: Normal. No ductal dilation. Spleen: Normal. No splenomegaly. Adrenal glands: Normal. No mass. Kidneys and ureters: There is bilateral renal cortical scarring. An extrarenal pelvis is present on the left side. There is a tiny nonobstructing calcification in the left kidney. No ureteral calculi. Stomach and bowel: Status post left hemicolectomy. There is no significant bowel dilatation or evidence of bowel obstruction. Appendix: No evidence of appendicitis. Intraperitoneal space: Unremarkable. No free air. No significant fluid collection. Vasculature: There is prominent calcification of the aorta and iliac arteries. No abdominal aortic aneurysm. Lymph nodes: Unremarkable. No enlarged lymph nodes. Urinary bladder: Unremarkable as visualized. Reproductive: Unremarkable as visualized. Bones/joints: Left hip prosthesis is present. Chronic degenerative changes are present in the spine. There is old compression fracture of L4. Soft tissues: Unremarkable. CT/CT abdomen pelvis w con* [id number] IMPRESSION: 1. No acute abnormalities are seen in the abdomen and pelvis. 2. Left lower lobe pneumonia.
--- NOTE | 2022-11-29 10:16 | W.ED.ABDPA2 ---
Documented by User: АНДРЕЙ Neves 11/30/22 13:42 HPI - Abdominal Pain General: Chief Complaint: Abdominal Pain Stated Complaint: vomiting/ diarrhea Time Seen by Provider: 11/29/22 09:57 History of Present Illness: Patient is a 72-year-old male who comes to the ED via EMS with abdominal pain. [facility] stated that for a week patient has had nausea vomiting and diarrhea along with abdominal pain. Patient states he has only been having abdominal pain for the past week and denies any episodes of emesis or diarrhea. Patient says his abdominal pain is in his left lower quadrant of his abdomen and he rates it currently a 9 out of 10. Eating or drinking anything makes symptoms worse. Denies any fevers or constipation. Associated Symptoms: Reports diarrhea, nausea and vomiting; Denies chills, constipation, dysuria, fever(s), hematochezia and hematuria Review of Systems Const: Denies: fever(s), chills or fatigue Eyes: Denies: change in vision or eye discomfort ENMT: Denies: throat pain, odynophagia, nasal discharge or nasal congestion Card: Denies: chest pain, palpitations, edema, swelling of feet/ankles, dyspnea on exertion or orthopnea Resp: Denies: dyspnea, productive cough or non-productive cough GI: Reports: abdominal pain, nausea, vomiting and diarrhea; Denies: constipation or hematochezia : Denies: flank pain, difficulty urinating, dysuria or hematuria Musc: Denies: neck pain, back pain or extremity swelling Skin/Breast: Denies: rash or new lesions Neuro: Denies: headache(s), numbness in extremities or weakness in extremities PFS ED PFSH: Medical History Aspiration pneumonia Bilateral hydronephrosis Chronic kidney disease COPD (chronic obstructive pulmonary disease) Dementia Dysphagia Hydronephrosis Hypertension Influenza B Iron deficiency anemia Major depressive disorder, recurrent episode, in partial remission with anxious distress Major depressive disorder, recurrent, in partial remission Neurogenic bladder Peptic ulcer disease Pyuria Recurrent aspiration pneumonia Renal mass, right Small bowel obstruction Vitamin D deficiency Surgical History History of colostomy reversal History of esophagogastroduodenoscopy (EGD) History of total left hip replacement History of transurethral resection of prostate Hx of appendectomy Family History Father , AT AGE 49 MD No problems noted. Mother , AT AGE 58 CVA No problems noted. Sister Cancer STOMACH Social History Smoking and tobacco status: current some day smoker cigarettes [ Other cigarette details: 6yr hx] Quit status (tobacco): not considering quitting Second hand smoke exposure: Yes Smoking risk assessment/counseling performed?: Yes Alcohol intake: former Adopted: No Caregiver/support person: No Lives independently: No Housing: Care Home Marital status: Single service: No Current occupational status: disabled Pets and animals: Yes Current gender identity: Male Physical Exam Const: COMMON NORMALS: patient oriented x3 HENMT: COMMON NORMALS: normocephalic HEAD & SCALP: normocephalic MOUTH: Normal oral and palatal mucosa present THROAT: posterior oropharynx normal and uvula midline Neck/C-Spine: COMMON NORMALS: supple GENERAL: Yes normal visual inspection Resp: COMMON NORMALS: normal respiratory effort, No retractions, No use of accessory muscles and clear to auscultation bilaterally AUSCULTATION: clear to auscultation bilaterally Cardio: COMMON NORMALS: regular rate, regular rhythm, S1 normal heart sound present, S2 normal heart sound present, No gallops present (Cardio), No clicks present (Cardio), No murmurs present (Cardio) and Peripheral pulses 2+ throughout RATE: regular rate RHYTHM: regular rhythm HEART SOUNDS: S1 normal heart sound present and S2 normal heart sound present PERIPHERAL PULSES: Peripheral pulses 2+ throughout GI: COMMON NORMALS: Normal to inspection, nondistended, normoactive bowel sounds present, Soft to palpation and no masses PALPATION: Yes Soft to palpation and Yes Tenderness to palpation present (GI) Details: LLQ (Moderate to severe tenderness to left lower quadrant) : COMMON NORMALS: Yes no CVA tenderness BLADDER/KIDNEY EXAM: Yes no CVA tenderness Back/Pelvis: COMMON NORMALS: no CVA tenderness Extremity: COMMON NORMALS: normal to inspection Neuro: COMMON NORMALS: patient oriented x3 GAIT: Yes Normal gait present Skin: GENERAL SKIN EXAM: dry skin Course Vital Signs: Vital signs: Vital Signs Temperature 97.9 F 11/29/22 10:00 Pulse Rate 85 11/29/22 16:30 Respiratory Rate 16 11/29/22 18:30 Blood Pressure 113/68 11/29/22 17:00 Pulse Oximetry 95 11/29/22 15:30 Oxygen Delivery Me thod 11/29/22 10:06 MDM - Abdominal Pain Medical Decision Making Patient is a 72-year-old male who comes to the ED via EMS with abdominal pain. [facility] stated that for a week patient has had nausea vomiting and diarrhea along with abdominal pain. Patient states he has only been having abdominal pain for the past week and denies any episodes of emesis or diarrhea. Patient says his abdominal pain is in his left lower quadrant of his abdomen and he rates it currently a 9 out of 10. Eating or drinking anything makes symptoms worse. Denies any fevers or constipation. Vitals are stable. Exam of patient shows some tenderness to left lower quadrant of abdomen. Rest of exam is benign. Labs are all unremarkable. Nurse performed bladder scan and he had over 700 mL in bladder. She performed Sainz catheter placement and over 700 ml of urine drained out and patient felt better. UA shows signs of UTI. CT of abdomen pelvis showed no acute abnormalities in the abdomen or pelvis but noted some left lower lobe pneumonia. EKG shows normal sinus rhythm no acute ST segment elevation or depression. No peaked T waves seen. Chest x-ray showed some left lower lobe pneumonia. Patient stable for discharge back to long-term diagnosed with acute urinary retention, hyperkalemia, UTI and pneumonia. Patient sent home with a prescription for an antibiotic and told to follow-up with PCP in the next week for reevaluation. Return ED precautions given. Patient understood and agreed with plan. Lab Data I reviewed the patient's lab results. 11/29/22 10:24 11/29/22 10:24 Labs/Radiology: Radiology Impressions Abdomen/Pelvis CT 11/29/22 10:14 IMPRESSION: 1. No acute abnormalities are seen in the abdomen and pelvis. 2. Left lower lobe pneumonia. Chest X-Ray 11/29/22 13:15 IMPRESSION: 1. Emphysematous changes. 2. Borderline cardiomegaly. 3. Subtle accentuation of the interstitial lung markings in the lung bases and left perihilum could be due to developing interstitial edema clinical correlation suggested Laboratory Results WBC 11.4 10^3/uL (4.0-10.0) H 11/29/22 10:24 RBC 4.78 10^6/uL (4.1-5.3) 11/29/22 10:24 Hgb 14.0 g/dL (11.7-16.6) 11/29/22 10:24 Hct 45.6 % (42.0-52.0) 11/29/22 10:24 MCV 95.4 fl (80-94) H 11/29/22 10:24 MCH 29.3 pg (28.0-34.0) 11/29/22 10:24 MCHC 30.7 g/dL (30.0-36.0) 11/29/22 10:24 RDW 14.3 % (12.1-15.1) 11/29/22 10:24 Plt Count 203 10^3/cmm (130-400) 11/29/22 10:24 MPV 10.2 fL (7.4-10.4) 11/29/22 10:24 Neut % (Auto) 86.2 % 11/29/22 10:24 Lymph % (Auto) 4.9 % 11/29/22 10:24 [place] % (Auto) 7.7 % 11/29/22 10:24 Eos % (Auto) 0.7 % 11/29/22 10:24 Baso % (Auto) 0.1 % 11/29/22 10:24 Neut # (Auto) 9.82 10^3/uL (1.8-7.7) H 11/29/22 10:24 Lymph # (Auto) 0.6 10^3/uL (0.8-4.8) L 11/29/22 10:24 [place] # (Auto) 0.9 10^3/uL (0.2-0.9) 11/29/22 10:24 Eos # (Auto) 0.1 10^3/uL (0.0-0.8) 11/29/22 10:24 Baso # (Auto) 0.0 10^3/uL (0.0-0.1) 11/29/22 10:24 Nucleated RBC % (auto) 0 % 11/29/22 10:24 Nucleated RBCs # 0.0 /100WBC 11/29/22 10:24 Sodium 136 mmol/L (136-145) 11/29/22 10:24 Potassium 5.5 mmol/L (3.5-5.1) H 11/29/22 10:24 Chloride 98 mmol/L (98-107) 11/29/22 10:24 Carbon Dioxide 23 mmol/L (22-29) 11/29/22 10:24 Anion Gap 20.5 (5-19) H 11/29/22 10:24 BUN 35 mg/dL (8-23) H 11/29/22 10:24 Creatinine 1.3 mg/dL (0.7-1.2) H 11/29/22 10:24 GFR Calculation Not Reportable 11/29/22 10:24 Glucose 95 mg/dL (65-115) 11/29/22 10:24 Calculated Osmolality 290 mOsm/kg (285-295) 11/29/22 10:24 Calcium 9.3 mg/dL (8.5-10.5) 11/29/22 10:24 Total Bilirubin 0.6 mg/dL (0.15-1.2) 11/29/22 10:24 AST 26 U/L (0-40) 11/29/22 10:24 ALT < 5 U/L (0-41) 11/29/22 10:24 Alkaline Phosphatase 86 U/L (40-130) 11/29/22 10:24 Total Protein 8.2 g/dL (6.6-8.7) 11/29/22 10:24 Albumin 3.7 g/dL (3.5-5.2) 11/29/22 10:24 Globulin 4.5 g/dL (1.3-4.6) 11/29/22 10:24 Lipase 22 U/L (13-60) 11/29/22 10:24 Urine Color Yellow (Yellow) 11/29/22 16:55 Urine Appearance Cloudy (CLEAR) A 11/29/22 16:55 Urine pH 6 (5-7) 11/29/22 16:55 Ur Specific [place] 1.010 (1.005-1.030) 11/29/22 16:55 Urine Protein Neg (Negative) 11/29/22 16:55 Urine Glucose (UA) Norm (Normal) 11/29/22 16:55 Urine Ketones Negative (Negative) 11/29/22 16:55 Urine Blood 2+ (Negative) H 11/29/22 16:55 Urine Nitrate Positive (Negative) H 11/29/22 16:55 Urine Bilirubin Neg (Negative) 11/29/22 16:55 Urine Urobilinogen Neg mg/dL (Negative) 11/29/22 16:55 Ur Leukocyte Esterase 1+ (Negative) H 11/29/22 16:55 Urine RBC 10-15 /hpf (0-2) H 11/29/22 16:55 Urine WBC 25-40 /hpf (0-5) H 11/29/22 16:55 Ur Squamous Epith Cells 0-4 /hpf (0-5) H 11/29/22 16:55 Amorphous Sediment 1+ /hpf 11/29/22 16:55 Urine Bacteria 3+ /hpf (NONE) H 11/29/22 16:55 Urine Mucus 1+ /hpf 11/29/22 16:55 EKG Data EKG 1: EKG interpretation date: 11/29/22 Interpretation: Sinus rhythm, no ST segment elevation or depression seen. 87 bpm. No peaked T waves noted. Discharge Plan Discharge Patient Disposition: Home Clinical Impression: Acute urinary retention, Pneumonia, Hyperkalemia, UTI (urinary tract infection) Condition: Stable Prescriptions: New ondansetron 4 mg tablet,disintegrating 4 mg PO Q8H PRN (Reason: nausea and vomiting) Qty: 20 0RF No Action aspirin [Adult Low Dose Aspirin] 81 mg tablet,delayed release (DR/EC) 81 mg PO DAILY@08 dutasteride [Avodart] 0.5 mg capsule 0.5 mg PO DAILY@20 esomeprazole magnesium [Nexium] 40 mg capsule,delayed release(DR/EC) 40 mg PO DAILY@08 levetiracetam [Keppra] 500 mg tablet 500 mg PO BID@08,20 docusate sodium [Colace] 100 mg capsule 200 mg PO BID@08,20 tamsulosin [Flomax] 0.4 mg capsule 0.4 mg PO DAILY@20 polyethylene glycol 3350 [Miralax] 17 gram/dose powder 17 gm PO DAILY PRN (Reason: Constipation) ipratropium bromide 0.03 % spray,non-aerosol 2 spray intranasal TID PRN (Reason: unknown) Rx Instructions: administer into each nostril lactulose 10 gram/15 mL solution 10 gm PO DAILY PRN (Reason: Constipation) TwoCal HN 0.08-2 gram-kcal/mL liquid See Rx Instructions PO TID Rx Instructions: 30mL PO three times daily @08,14,20 mirtazapine 15 mg Tablet 7.5 mg PO DAILY@20 fluticasone propionate 50 mcg/actuation [place],Suspension 1 spray INTRANASAL DAILY@08 albuterol sulfate [Ventolin HFA] 90 mcg/actuation Hfa Aerosol Inhaler 2 puff inhalation Q4H.RESPIRATORY PRN (Reason: Shortness Of Breath) Qty: 18 0RF gabapentin 300 mg Capsule 300 mg PO DAILY albuterol sulfate 90 mcg/actuation Hfa Aerosol Inhaler 2 puff INHALATION Q4H Rx Instructions: @08:00,12:00,16:00,20:00 ropinirole 0.25 mg Tablet 0.25 mg PO DAILY@20 hydrocodone-acetaminophen 5-325 mg Tablet 1 tab PO Q4H PRN (Reason: Pain) escitalopram oxalate [Lexapro] 10 mg Tablet 10 mg PO DAILY@08 gabapentin 600 mg Tablet 600 mg PO BEDTIME cetirizine 10 mg Tablet 10 mg PO DAILY acetaminophen [Mapap Arthritis Pain] 650 mg Tablet Extended Release 650 mg PO Q4H PRN (Reason: Pain) ondansetron 4 mg Tablet,Disintegrating 4 mg PO Q4H PRN (Reason: Nausea And Vomiting) melatonin 1 mg Tablet 1 mg PO BEDTIME budesonide 0.5 mg/2 mL suspension for nebulization 0.5 mg inhalation BID mupirocin 2 % Ointment 1 applic TOPICAL BID PRN (Reason: Rash) divalproex 500 mg tablet,delayed release (DR/EC) 500 mg PO TID Discharge Orders: Discharge ED (Routine); Ordered 11/29/22 Ordered By: Kan Khoury Referrals: David Austin [Primary Care Provider] - Discharge Diet: Regular Discharge Activity: Increase activity as tolerated Patient Instructions: Pneumonia (ED) Activity Restrictions/Additional Instructions: Follow-up with medical provider as directed in the next 3 to 5 days for reevaluation. Have your potassium labs rechecked in the next 3 to 5 days as well. Take medications as prescribed. Return to the ER or your medical provider if condition worsens. Please read and understand discharge instructions. Thank you for choosing [facility] for your healthcare needs today. Please realize this is an emergency room and that we are providing you with a medical screening exam and this may not be complete and all inclusive of all the testing and or work up that you may need to determine your ailment or severity of your illness. It is very important that you follow up as instructed or that you return to the Emergency Department should you have concerns or if your condition changes or worsens in any way. Coding Level of Care Code ED Wedding Day Coordinator for Chg Fwd Documented by User: Terry Sanford MD 12/13/22 11:32 HPI - Abdominal Pain General: Chief Complaint: Abdominal Pain Stated Complaint: vomiting/ diarrhea Time Seen by Provider: 11/29/22 09:57 PFSH ED PFSH: Medical History Aspiration pneumonia Bilateral hydronephrosis Chronic kidney disease COPD (chronic obstructive pulmonary disease) Dementia Dysphagia Hydronephrosis Hypertension Influenza B Iron deficiency anemia Major depressive disorder, recurrent episode, in partial remission with anxious distress Major depressive disorder, recurrent, in partial remission Neurogenic bladder Peptic ulcer disease Pyuria Recurrent aspiration pneumonia Renal mass, right Small bowel obstruction Vitamin D deficiency Surgical History History of colostomy reversal History of esophagogastroduodenoscopy (EGD) History of total left hip replacement History of transurethral resection of prostate Hx of appendectomy Family History Father , AT AGE 49 MD No problems noted. Mother , AT AGE 58 CVA No problems noted. Sister Cancer STOMACH Social History Smoking and tobacco status: current some day smoker cigarettes [ Other cigarette details: 6yr hx] Quit status (tobacco): not considering quitting Second hand smoke exposure: Yes Smoking risk assessment/counseling performed?: Yes Alcohol intake: former Adopted: No Caregiver/support person: No Lives independently: No Housing: Care Home Marital status: Single service: No Current occupational status: disabled Pets and animals: Yes Current gender identity: Male Course Vital Signs: Vital signs: Vital Signs Temperature 97.9 F 11/29/22 10:00 Pulse Rate 85 11/29/22 16:30 Respiratory Rate 16 11/29/22 18:30 Blood Pressure 113/68 11/29/22 17:00 Pulse Oximetry 95 11/29/22 15:30 Oxygen Delivery Me thod 11/29/22 10:06 MDM - Abdominal Pain Medical Decision Making Patient is a 72-year-old male who comes to the ED via EMS with abdominal pain. [facility] stated that for a week patient has had nausea vomiting and diarrhea along with abdominal pain. Patient states he has only been having abdominal pain for the past week and denies any episodes of emesis or diarrhea. Patient says his abdominal pain is in his left lower quadrant of his abdomen and he rates it currently a 9 out of 10. Eating or drinking anything makes symptoms worse. Denies any fevers or constipation. Vitals are stable. Exam of patient shows some tenderness to left lower quadrant of abdomen. Rest of exam is benign. Labs are all unremarkable. Nurse performed bladder scan and he had over 700 mL in bladder. She performed Sainz catheter placement and over 700 ml of urine drained out and patient felt better. UA shows signs of UTI. CT of abdomen pelvis showed no acute abnormalities in the abdomen or pelvis but noted some left lower lobe pneumonia. EKG shows normal sinus rhythm no acute ST segment elevation or depression. No peaked T waves seen. Chest x-ray showed some left lower lobe pneumonia. Patient stable for discharge back to long-term diagnosed with acute urinary retention, hyperkalemia, UTI and pneumonia. Patient sent home with a prescription for an antibiotic and told to follow-up with PCP in the next week for reevaluation. Return ED precautions given. Patient understood and agreed with plan. I have reviewed this documentation by АНДРЕЙ Neves. Terry Sanford MD Emergency Medicine Lab Data 11/29/22 10:24 11/29/22 10:24 Labs/Radiology: Radiology Impressions Abdomen/Pelvis CT 11/29/22 10:14 IMPRESSION: 1. No acute abnormalities are seen in the abdomen and pelvis. 2. Left lower lobe pneumonia. Chest X-Ray 11/29/22 13:15 IMPRESSION: 1. Emphysematous changes. 2. Borderline cardiomegaly. 3. Subtle accentuation of the interstitial lung markings in the lung bases and left perihilum could be due to developing interstitial edema clinical correlation suggested Laboratory Results WBC 11.4 10^3/uL (4.0-10.0) H 11/29/22 10:24 RBC 4.78 10^6/uL (4.1-5.3) 11/29/22 10:24 Hgb 14.0 g/dL (11.7-16.6) 11/29/22 10:24 Hct 45.6 % (42.0-52.0) 11/29/22 10:24 MCV 95.4 fl (80-94) H 11/29/22 10:24 MCH 29.3 pg (28.0-34.0) 11/29/22 10:24 MCHC 30.7 g/dL (30.0-36.0) 11/29/22 10:24 RDW 14.3 % (12.1-15.1) 11/29/22 10:24 Plt Count 203 10^3/cmm (130-400) 11/29/22 10:24 MPV 10.2 fL (7.4-10.4) 11/29/22 10:24 Neut % (Auto) 86.2 % 11/29/22 10:24 Lymph % (Auto) 4.9 % 11/29/22 10:24 [place] % (Auto) 7.7 % 11/29/22 10:24 Eos % (Auto) 0.7 % 11/29/22 10:24 Baso % (Auto) 0.1 % 11/29/22 10:24 Neut # (Auto) 9.82 10^3/uL (1.8-7.7) H 11/29/22 10:24 Lymph # (Auto) 0.6 10^3/uL (0.8-4.8) L 11/29/22 10:24 [place] # (Auto) 0.9 10^3/uL (0.2-0.9) 11/29/22 10:24 Eos # (Auto) 0.1 10^3/uL (0.0-0.8) 11/29/22 10:24 Baso # (Auto) 0.0 10^3/uL (0.0-0.1) 11/29/22 10:24 Nucleated RBC % (auto) 0 % 11/29/22 10:24 Nucleated RBCs # 0.0 /100WBC 11/29/22 10:24 Sodium 136 mmol/L (136-145) 11/29/22 10:24 Potassium 5.5 mmol/L (3.5-5.1) H 11/29/22 10:24 Chloride 98 mmol/L (98-107) 11/29/22 10:24 Carbon Dioxide 23 mmol/L (22-29) 11/29/22 10:24 Anion Gap 20.5 (5-19) H 11/29/22 10:24 BUN 35 mg/dL (8-23) H 11/29/22 10:24 Creatinine 1.3 mg/dL (0.7-1.2) H 11/29/22 10:24 GFR Calculation Not Reportable 11/29/22 10:24 Glucose 95 mg/dL (65-115) 11/29/22 10:24 Calculated Osmolality 290 mOsm/kg (285-295) 11/29/22 10:24 Calcium 9.3 mg/dL (8.5-10.5) 11/29/22 10:24 Total Bilirubin 0.6 mg/dL (0.15-1.2) 11/29/22 10:24 AST 26 U/L (0-40) 11/29/22 10:24 ALT < 5 U/L (0-41) 11/29/22 10:24 Alkaline Phosphatase 86 U/L (40-130) 11/29/22 10:24 Total Protein 8.2 g/dL (6.6-8.7) 11/29/22 10:24 Albumin 3.7 g/dL (3.5-5.2) 11/29/22 10:24 Globulin 4.5 g/dL (1.3-4.6) 11/29/22 10:24 Lipase 22 U/L (13-60) 11/29/22 10:24 Urine Color Yellow (Yellow) 11/29/22 16:55 Urine Appearance Cloudy (CLEAR) A 11/29/22 16:55 Urine pH 6 (5-7) 11/29/22 16:55 Ur Specific [place] 1.010 (1.005-1.030) 11/29/22 16:55 Urine Protein Neg (Negative) 11/29/22 16:55 Urine Glucose (UA) Norm (Normal) 11/29/22 16:55 Urine Ketones Negative (Negative) 11/29/22 16:55 Urine Blood 2+ (Negative) H 11/29/22 16:55 Urine Nitrate Positive (Negative) H 11/29/22 16:55 Urine Bilirubin Neg (Negative) 11/29/22 16:55 Urine Urobilinogen Neg mg/dL (Negative) 11/29/22 16:55 Ur Leukocyte Esterase 1+ (Negative) H 11/29/22 16:55 Urine RBC 10-15 /hpf (0-2) H 11/29/22 16:55 Urine WBC 25-40 /hpf (0-5) H 11/29/22 16:55 Ur Squamous Epith Cells 0-4 /hpf (0-5) H 11/29/22 16:55 Amorphous Sediment 1+ /hpf 11/29/22 16:55 Urine Bacteria 3+ /hpf (NONE) H 11/29/22 16:55 Urine Mucus 1+ /hpf 11/29/22 16:55 Discharge Plan Discharge Patient Disposition: Home Clinical Impression: Acute urinary retention, Pneumonia, Hyperkalemia, UTI (urinary tract infection) Condition: Stable Prescriptions: New ondansetron 4 mg tablet,disintegrating 4 mg PO Q8H PRN (Reason: nausea and vomiting) Qty: 20 0RF No Action aspirin [Adult Low Dose Aspirin] 81 mg tablet,delayed release (DR/EC) 81 mg PO DAILY@08 dutasteride [Avodart] 0.5 mg capsule 0.5 mg PO DAILY@20 esomeprazole magnesium [Nexium] 40 mg capsule,delayed release(DR/EC) 40 mg PO DAILY@08 levetiracetam [Keppra] 500 mg tablet 500 mg PO BID@08,20 docusate sodium [Colace] 100 mg capsule 200 mg PO BID@08,20 tamsulosin [Flomax] 0.4 mg capsule 0.4 mg PO DAILY@20 polyethylene glycol 3350 [Miralax] 17 gram/dose powder 17 gm PO DAILY PRN (Reason: Constipation) ipratropium bromide 0.03 % spray,non-aerosol 2 spray intranasal TID PRN (Reason: unknown) Rx Instructions: administer into each nostril lactulose 10 gram/15 mL solution 10 gm PO DAILY PRN (Reason: Constipation) TwoCal HN 0.08-2 gram-kcal/mL liquid See Rx Instructions PO TID Rx Instructions: 30mL PO three times daily @08,14,20 mirtazapine 15 mg Tablet 7.5 mg PO DAILY@20 fluticasone propionate 50 mcg/actuation [place],Suspension 1 spray INTRANASAL DAILY@08 albuterol sulfate [Ventolin HFA] 90 mcg/actuation Hfa Aerosol Inhaler 2 puff inhalation Q4H.RESPIRATORY PRN (Reason: Shortness Of Breath) Qty: 18 0RF gabapentin 300 mg Capsule 300 mg PO DAILY albuterol sulfate 90 mcg/actuation Hfa Aerosol Inhaler 2 puff INHALATION Q4H Rx Instructions: @08:00,12:00,16:00,20:00 ropinirole 0.25 mg Tablet 0.25 mg PO DAILY@20 hydrocodone-acetaminophen 5-325 mg Tablet 1 tab PO Q4H PRN (Reason: Pain) escitalopram oxalate [Lexapro] 10 mg Tablet 10 mg PO DAILY@08 gabapentin 600 mg Tablet 600 mg PO BEDTIME cetirizine 10 mg Tablet 10 mg PO DAILY acetaminophen [Mapap Arthritis Pain] 650 mg Tablet Extended Release 650 mg PO Q4H PRN (Reason: Pain) ondansetron 4 mg Tablet,Disintegrating 4 mg PO Q4H PRN (Reason: Nausea And Vomiting) melatonin 1 mg Tablet 1 mg PO BEDTIME budesonide 0.5 mg/2 mL suspension for nebulization 0.5 mg inhalation BID mupirocin 2 % Ointment 1 applic TOPICAL BID PRN (Reason: Rash) divalproex 500 mg tablet,delayed release (DR/EC) 500 mg PO TID Discharge Orders: Discharge ED (Routine); Ordered 11/29/22 Ordered By: Kan Khoury Referrals: David Austin [Primary Care Provider] - Discharge Diet: Regular Discharge Activity: Increase activity as tolerated Patient Instructions: Pneumonia (ED) Activity Restrictions/Additional Instructions: Follow-up with medical provider as directed in the next 3 to 5 days for reevaluation. Have your potassium labs rechecked in the next 3 to 5 days as well. Take medications as prescribed. Return to the ER or your medical provider if condition worsens. Please read and understand discharge instructions. Thank you for choosing [facility] for your healthcare needs today. Please realize this is an emergency room and that we are providing you with a medical screening exam and this may not be complete and all inclusive of all the testing and or work up that you may need to determine your ailment or severity of your illness. It is very important that you follow up as instructed or that you return to the Emergency Department should you have concerns or if your condition changes or worsens in any way. Coding Level of Care Code ED Wedding Day Coordinator for Yoshi Edwards
[2022-11-29] MEDS: ondansetron 2 mg/ML SDV 2 mL 4 MG IVP (10:32)
[2022-11-29] MEDS: sodium chloride 0.9% 500 ML 999 ML IV (10:32)
[2022-11-29] MEDS: morphine 4 mg/mL SDV 1 mL IVP ×2 (10:32→14:13)
[2022-11-29 10:36] LABS: Basophils % 0.1 %; Eosinophils # 0.1 10^3/uL (0.0-0.8); Eosinophils % 0.7 %; Hematocrit 45.6 % (42.0-52.0); Lymphocytes # 0.6 10^3/uL (0.8-4.8); Lymphocytes % 4.9 %; Mean Corpuscular HGB Conc 30.7 g/dL (30.0-36.0); Mean Corpuscular Hemoglobin 29.3 pg (28.0-34.0); Mean Corpuscular Volume 95.4 fl (80-94); Mean Platelet Volume 10.2 fL (7.4-10.4); Monocytes # 0.9 10^3/uL (0.2-0.9); Monocytes % 7.7 %; Neutrophils # 9.82 10^3/uL (1.8-7.7); Neutrophils % 86.2 %; Nucleated Red Blood Cells % 0 %; Platelet Count 203 10^3/cmm (130-400); Red Blood Count 4.78 10^6/uL (4.1-5.3); Red Cell Distribution Width 14.3 % (12.1-15.1); White Blood Count 11.4 10^3/uL (4.0-10.0)
[2022-11-29 11:06] LABS: Alanine Aminotransferase < 5 U/L (0-41); Albumin Level 3.7 g/dL (3.5-5.2); Alkaline Phosphatase 86 U/L (40-130); Blood Urea Nitrogen 35 mg/dL (8-23); Calcium 9.3 mg/dL (8.5-10.5); Carbon Dioxide 23 mmol/L (22-29); Chloride 98 mmol/L (98-107); Globulin 4.5 g/dL (1.3-4.6); Glucose 95 mg/dL (65-115); Lipase 22 U/L (13-60); Osmolality Calculated 290 mOsm/kg (285-295); Sodium 136 mmol/L (136-145); Total Bilirubin 0.6 mg/dL (0.15-1.2); Total Protein 8.2 g/dL (6.6-8.7)
[2022-11-29 11:14] LABS: Anion Gap 20.5 (5-19); Aspartate Amino Transferase 26 U/L (0-40); Potassium 5.5 mmol/L (3.5-5.1)
[2022-11-29] MEDS: iohexol 350 mg/mL 500 mL Btl (per mL) IV (11:54)
--- NOTE | 2022-11-29 12:16 | ECG_ITS ---
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 Measurements Intervals [place] Rate: 87 P: 62 [place]: 176 QRS: 28 QRSD: 73 T: 69 QT: 345 QTc: 417 Interpretive Statements SINUS RHYTHM MINIMAL VOLTAGE CRITERIA FOR LVH, CONSIDER NORMAL VARIANT [MEETS CRITERIA IN ONE OF: R(aVL), S(V1), R(V5), R(V5/V6)+S(V1)] NONSPECIFIC T-WAVE ABNORMALITY Compared to ECG 04/25/2022 20:40:12 T-wave abnormality now present Electronically Signed On 11-29-2022 23:02:19 CDT by Edson Arambula M.D. [id number]
--- NOTE | 2022-11-29 13:15 | XR_ITS ---
WS: [id number] EXAMINATION: XR chest 1V portable [id number] REASON FOR EXAM: sob COMPARISON: 04/25/2022 ORDER DATE: 11/29/2022 1:29 PM TECHNIQUE: A single, portable frontal chest x-ray was obtained. X-RAY FINDINGS: Lungs: Emphysematous changes. Bilateral increased lower lobe atelectasis and/or interstitial thickeni ng with left perihilar interstitial thickening. Pleural spaces: Unremarkable. No pleural effusion. No pneumothorax. Heart/Mediastinum: Borderline cardiomegaly. Atherosclerotic aortic change Bones/joints: Unremarkable. XR/XR chest 1V portable [id number] IMPRESSION: 1. Emphysematous changes. 2. Borderline cardiomegaly. 3. Subtle accentuation of the interstitial lung markings in the lung bases and left perihilum could be due to developing interstitial edema clinical correlati on suggested
[2022-11-29] MEDS: cefTRIAXone 1,000 MG in sodium chloride 0.9% (plus) 50 ML 100 MG IV (14:13)
[2022-11-29 18:50] LABS: Urine Color Yellow (Yellow)
[2022-11-29 18:51] LABS: Blood Urine 2+ (Negative); Glucose Urine UA Norm (Normal); Ketones Urine Negative (Negative); Nitrate Urine Positive (Negative); Protein Urine Neg (Negative); Urine Appearance Cloudy (CLEAR); pH Urine 6 (5-7)
[2022-11-29 18:52] LABS: Add Urine Microscopic? YES; Bilirubin Urine Neg (Negative); Leukocyte Esterase Urine 1+ (Negative); Urobilinogen Urine Neg (Negative)
[2022-11-29 18:58] LABS: Bacteria Urine 3+ /hpf; Mucus Urine 1+ /hpf; Squamous Epithelial Cell Urine 0-4 /hpf (0-5); WBC Urine 25-40 /hpf (0-5)
[2022-11-29 18:59] LABS: Add Urine Culture? Yes; Amorphous Sediment Urine 1+ /hpf
== END 2022-11-29 21:20 | disposition home or self-care (01) ==
PROVIDERS: Physician Assistant; Emergency Provider Physician Assistant; PCP Family Medicine
DX: N39.0 Urinary tract infection, site not specified (principal); J18.9 Pneumonia, unspecified organism; E87.5 Hyperkalemia; R33.9 Retention of urine, unspecified; I12.9 Hypertensive chronic kidney disease with stage 1 through stage 4 chronic kidney disease, or unspecified chronic kidney disease; N18.9 Chronic kidney disease, unspecified; J44.9 Chronic obstructive pulmonary disease, unspecified; F03.90 Unspecified dementia, unspecified severity, without behavioral disturbance, psychotic disturbance, mood disturbance, and anxiety; F17.210 Nicotine dependence, cigarettes, uncomplicated; Z79.82 Long term (current) use of aspirin
CPT/HCPCS: 36415; 51702; 71045; 74177; 80053; 81001; 83690; 85025; 87040; 87077; 87086; 87186; 93005; 96361; 96365; 96375; 96376; 99285; J0696; J2270; J2405; J7040; Q9967

== ENCOUNTER 2023-12-27 18:25 | Inpatient (IN) | payer MEDICARE, MEDICAID, SELFPAY ==
[2023-12-27 18:27] VITALS: BP 118/64; PULSE 89; RESP 22; TEMP 36.4
--- NOTE | 2023-12-27 18:29 | XRR_ITS ---
PROCEDURE INFORMATION: Exam: XR Chest Exam date and time: 12/27/2023 7:27 PM Age: 73 years old Clinical indication: Shortness of breath; Patient HX: General weakness with SOB. History of copd. TECHNIQUE: Imaging protocol: Radiologic exam of the chest. Views: 1 view. COMPARISON: CR XR chest 1V portable [id number] 11/29/2022 1:32 PM FINDINGS: Lungs: Stable mild hyperinflation of the lungs. Interval development of right lower lobe airspace disease suspicious for pneumonia. Pleural spaces: No pleural effusion. No pneumothorax. Heart/Mediastinum: Stable mild enlargement of the cardiac silhouette. Mediastinal contours are unremarkable. Vasculature: Stable vascular calcifications in the aorta. Bones/joints: Unremarkable for age. Intraperitoneal space: Surgical clips in the epigastric region are stable. XR/XR chest 1V portable [id number] IMPRESSION: 1. Interval development of right lower lobe airspace disease suspicious for pneumonia. Recommend followup chest imaging to insure resolution of these findings. 2. Incidental/nonacute findings are listed in the report.
[2023-12-27 18:39] LABS: ABG PCO2 42.7 mmHg (35-45); ABG PH Result 7.27 (7.35-7.45); Arterial Blood Gas Hematocrit 32.1 % (42-52); Base Excess ABG -6.9 mmol/L (-2.0-2.0); Blood Gas Allen Test Pos; Blood Gas Operator Identificat CAK; Blood Gas Sample Site Radial, left; Blood Gas Sample Type Arterial; HCO3 ABG 19.6 mmol/L (22-26); Oxygen Device NC; PO2 ABG 67.3 mmHg (80.0-100.0); PO2 FiO2 Ratio Arterial Blood 0
--- NOTE | 2023-12-27 18:39 | ED_ITS ---
HPI - Weakness 2 General: Chief complaint: Weakness Stated complaint: AMS Time Seen by Provider: 12/27/23 18:26 Source: patient and EMS Mode of arrival: EMS Limitations: no limitations History of Present Illness: 73-year-old male is here from nursing [facility] they are concerned that he is septic and found him altered today EMS states that during the right he was not really responsive he was hypotensive when he arrived I was able to arouse him he told me his name he denied pain anywhere blood pressure here is normal he had no vomiting no diarrhea known. He had history of pneumonia in the past Review of Systems 2 General: Reports: ROS unobtainable due to mental status PFSH ED 2 PFSH: Medical History Influenza B Recurrent aspiration pneumonia Dementia Aspiration pneumonia Dysphagia COPD (chronic obstructive pulmonary disease) Chronic kidney disease Peptic ulcer disease Vitamin D deficiency Hypertension Hydronephrosis Iron deficiency anemia Small bowel obstruction Pyuria Neurogenic bladder Renal mass, right Bilateral hydronephrosis Major depressive disorder, recurrent episode, in partial remission with anxious distress Major depressive disorder, recurrent, in partial remission Surgical History History of esophagogastroduodenoscopy (EGD) Hx of appendectomy History of colostomy reversal History of total left hip replacement History of transurethral resection of prostate Family History Father , AT AGE 49 [place] No problems noted. Mother , AT AGE 58 CVA No problems noted. Sister Cancer STOMACH Social History Smoking and tobacco/nicotine status: current some day tobacco/nicotine user cigarettes [ Other cigarette details: 6yr hx] Quit status (tobacco/nicotine): not considering quitting Second hand smoke exposure: Yes Alcohol intake: former Substance/Drug Use: never Adopted: No Caregiver/support person: No Lives independently: No Housing: Prison Marital status: Single service: No Current occupational status: disabled Pets and animals: Yes Do you think of yourself as: Straight/Heterosexual Current gender identity: Male Physical Exam 2 Const: COMMON NORMALS: alert; negative for patient oriented x3 GENERAL APPEARANCE: ill appearing O RIENTATION/CONSCIOUSNESS: Yes oriented to person; not oriented to place and not oriented to time HENMT: COMMON NORMALS: normocephalic and atraumatic HEAD & SCALP: n ormocephalic and atraumatic Neck/C-Spine: COMMON NORMALS: full ROM and supple Chest: COMMONS NORMALS: normal inspection of the chest and normal palpation of entire chest wall Resp: COMMON NORMALS: No retractions and No use of accessory muscles A USCULTATION: rales Cardio: COMMON NORMALS: regular rate, regular rhythm and No murmurs present (Cardio) RATE: regular rate RHYTHM: regular rhythm GI: COMMON NORMALS: Normal to inspection, nondistended, normoactive bowel sounds present, Soft to palpation, non-tender and no masses PALPATION: Yes Soft to palpation Extremity: COMMON NORMALS: normal to inspection and full ROM Neuro: COMMON NORMALS: moves all extremities and no focal motor deficits; negative for patient oriented x3 SENSORIUM/ORIENTATION: Yes alert, Yes oriented to person, No oriented to place and No oriented to time Psych: COMMON NORMALS: mental status grossly normal, Normal thought process present and cooperative THOUGHT PROCESS: Normal thought process present Skin: COMMON NORMALS: no rashes or lesions noted and no wounds GENERAL SKIN EXAM: no rashes or lesions noted Course 2 Vital Signs: Vital signs: Vital Signs Temperature 97.6 F 12/27/23 18:27 Pulse Rate 89 12/27/23 18:27 Respiratory Rate 22 H 12/27/23 18:27 Blood Pressure 118/64 12/27/23 18:27 Oxygen Delivery Me thod Nasal Cannula 12/27/23 18:27 Oxygen Flow Rate 3 12/27/23 18:27 MDM - Weakness Medical Decision Making Patient presents here with initially with unresponsiveness here he has been awake and alert answering most of my questions he does have a right lower lobe pneumonia did start him on antibiotics will admit at this time. Medical Records I reviewed the patient's medical records. Lab Data I reviewed the patient's lab results. 12/27/23 18:35 12/27/23 18:35 Radiology Impressions Chest X-Ray 12/27/23 18:29 IMPRESSION: 1. Interval development of right lower lobe airspace disease suspicious for pneumonia. Recommend followup chest imaging to insure resolution of these findings. 2. Incidental/nonacute findings are listed in the report. Head CT 12/27/23 18:55 IMPRESSION: 1. No acute abnormality of the brain. 2. Stable moderate atrophy of the brain parenchyma. 3. 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 4. Incidental/nonacute findings are listed in the report. Laboratory Results WBC 10.38 10^3/uL (3.29-11.43) 12/27/23 18:35 RBC 3.61 10^6/uL (3.85-5.65) L 12/27/23 18:35 Hgb 10.70 g/dL (11.27-16.99) L 12/27/23 18:35 Hct 33.5 % (37-53) L 12/27/23 18:35 MCV 92.8 fl (82-101) 12/27/23 18:35 MCH 29.6 pg (27-33) 12/27/23 18:35 MCHC 31.9 g/dL (30-55) 12/27/23 18:35 RDW 14.4 % (12.1-15.1) 12/27/23 18:35 Plt Count 222 10^3/cmm (157-399) 12/27/23 18:35 MPV 10.3 fL (7.4-10.4) 12/27/23 18:35 Neut % (Auto) 84.3 % 12/27/23 18:35 Lymph % (Auto) 8.6 % 12/27/23 18:35 Lewis % (Auto) 6.6 % 12/27/23 18:35 Eos % (Auto) 0.0 % 12/27/23 18:35 Baso % (Auto) 0.2 % 12/27/23 18:35 Neut # (Auto) 8.75 10^3/uL (1.8-7.7) H 12/27/23 18:35 Lymph # (Auto) 0.9 10^3/uL (0.8-4.8) 12/27/23 18:35 Lewis # (Auto) 0.7 10^3/uL (0.2-0.9) 12/27/23 18:35 Eos # (Auto) 0.0 10^3/uL (0.0-0.8) 12/27/23 18:35 Baso # (Auto) 0.0 10^3/uL (0.0-0.1) 12/27/23 18:35 Nucleated RBC % (auto) 0 % 12/27/23 18:35 Nucleated RBCs # 0.0 /100WBC 12/27/23 18:35 PT 17.00 SECONDS (12.1-14.9) H 12/27/23 18:35 INR 1.34 (0.8-1.2) H 12/27/23 18:35 Specimen Type Arterial 12/27/23 18:28 Sample Site Radial, left 12/27/23 18:28 ABG pH 7.27 (7.35-7.45) L 12/27/23 18:28 ABG pCO2 42.7 mmHg (35-45) 12/27/23 18:28 ABG pO2 67.3 mmHg (80.0-100.0) L 12/27/23 18: ABG PO2/FiO2 Ratio 0 12/27/23 18:28 ABG HCO3 19.6 mmol/L (22-26) L 12/27/23 18:28 ABG Base Excess -6.9 mmol/L (-2.0-2.0) L 12/27/23 18:28 Cristino Test Pos 12/27/23 18:28 Hematocrit 32.1 % (42-52) L 12/27/23 18:28 O2 Delivery Device Nc 12/27/23 18:28 O2 Liters/Min 3.0 % 12/27/23 18:28 FiO2 32.0 % 12/27/23 18:28 Communications Project Lead ID Cak 12/27/23 18:28 Sodium 130 mmol/L (136-145) L 12/27/23 18:35 Potassium 5.2 mmol/L (3.5-5.1) H 12/27/23 18:35 Chloride 99 mmol/L (98-107) 12/27/23 18:35 Carbon Dioxide 20 mmol/L (22-29) L 12/27/23 18:35 Anion Gap 16.2 (5-19) 12/27/23 18:35 BUN 76 mg/dL (8-23) H 12/27/23 18:35 Creatinine 2.2 mg/dL (0.7-1.2) H 12/27/23 18:35 GFR Calculation Not Reportable 12/27/23 18:35 Glucose 106 mg/dL (65-115) 12/27/23 18:35 Calculated Osmolality 293 mOsm/kg (285-295) 12/27/23 18:35 Lactic Acid 1.2 mmol/L (0.5-2.2) 12/27/23 18:35 Calcium 8.5 mg/dL (8.5-10.5) 12/27/23 18:35 Magnesium 2.4 mg/dL (1.7-2.3) H 12/27/23 18:35 Total Bilirubin 0.3 mg/dL (0.15-1.2) 12/27/23 18:35 AST 14 U/L (0-40) 12/27/23 18:35 ALT < 5 U/L (0-41) 12/27/23 18:35 Alkaline Phosphatase 76 U/L (40-130) 12/27/23 18:35 NT-Pro-B Natriuret Pep 64548 pg/mL (0-125) H 12/27/23 18:35 Total Protein 6.9 g/dL (6.6-8.7) 12/27/23 18:35 Albumin 2.7 g/dL (3.5-5.2) L 12/27/23 18:35 Globulin 4.2 g/dL (1.3-4.6) 12/27/23 18:35 TSH 1.49 uIU/mL (0.27-4.20) 12/27/23 18:35 All radiology interpretation(s) finalized by discharge EKG Data EKG 1: I personally reviewed and interpreted this EKG as follows: EKG interpretation date: 12/27/23 EKG interpretation time: 18:45 Interpretation: nsr hr [address] or t wave abnormalities qrs 78 qtc 395 Discharge Plan Discharge Patient Disposition: Admitted As Inpatient Clinical Impression: Pneumonia Condition: Stable Coding Level of Care Code ED Software Designer for Yoshi Edwards
[2023-12-27 18:45] LABS: Basophils % 0.2 %; Hematocrit 33.5 % (37-53); Lymphocytes # 0.9 10^3/uL (0.8-4.8); Lymphocytes % 8.6 %; Mean Corpuscular HGB Conc 31.9 g/dL (30-55); Mean Corpuscular Hemoglobin 29.6 pg (27-33); Mean Corpuscular Volume 92.8 fl (82-101); Mean Platelet Volume 10.3 fL (7.4-10.4); Monocytes # 0.7 10^3/uL (0.2-0.9); Monocytes % 6.6 %; Neutrophils # 8.75 10^3/uL (1.8-7.7); Neutrophils % 84.3 %; Nucleated Red Blood Cells % 0 %; Platelet Count 222 10^3/cmm (157-399); Red Blood Count 3.61 10^6/uL (3.85-5.65); Red Cell Distribution Width 14.4 % (12.1-15.1); White Blood Count 10.38 10^3/uL (3.29-11.43)
--- NOTE | 2023-12-27 18:45 | ECG_ITS ---
[facility] Test Date: 2023-12-27 Pat Name: Mirza Rodrigues Department: Room: Gender: Male [employer]: : 1950 Requested By: Anastacia Thornton Order Number: [id number] Reading MD: Huan Mckeon M.D. Measurements Intervals [place] Rate: 87 P: 88 AK: 179 QRS: 69 QRSD: 78 T: 87 QT: 350 QTc: 422 Interpretive Statements SINUS RHYTHM NONSPECIFIC T-WAVE ABNORMALITY Compared to ECG 11/29/2022 12:24:53 No significant changes Electronically Signed On 12-28-2023 8:12:57 CDT by Huan Mckeon M.D. [id number]
--- NOTE | 2023-12-27 18:55 | CTR_ITS ---
PROCEDURE INFORMATION: Exam: CT Head Without Contrast Exam date and time: 12/27/2023 7:34 PM Age: 73 years old Clinical indication: Altered mental status/memory loss; Patient HX: General weakness with confusion. History of dementia. ; Additional info: AMS TECHNIQUE: Imaging protocol: Computed tomography of the head without contrast. Sagittal and coronal reformatted images were created and reviewed. Radiation optimization: All CT scans at this facility use at least one of these dose optimization techniques: automated exposure control; mA and/or kV adjustment per patient size (includes targeted exams where dose is matched to clinical indication); or iterative reconstruction. COMPARISON: CT head wo con* [id number] 04/25/2022 8:23 PM RADIATION DOSE METRICS: Total DLP (mGy-cm): 1086.68 FINDINGS: Brain: No acute intracranial hemorrhage. No acute infarct. No intra-axial or extra-axial masses. Mclaughlin-white matter differentiation is preserved. No cerebral edema. No extra-axial fluid collections. No midline shift. No evidence for Chiari 1 malformation. Stable moderate atrophy of the brain parenchyma. Stable moderately decreased attenuation in the deep white matter, consistent with moderate chronic microangiopathic change. Cerebral ventricles: No hydrocephalus. Paranasal sinuses: Visualized paranasal sinuses are clear. Mastoid air cells: Mastoid air cells are clear bilaterally. Orbital cavities: No acute abnormality in the visualized orbits. Stable left scleral calcification. Bones/joints: No acute fracture. Soft tissues: No acute abnormality of the extracranial soft tissues. Vasculature: Stable moderate atherosclerotic calcifications in the visualized arteries. CT/CT head wo con* [id number] IMPRESSION: 1. No acute abnormality of the brain. 2. Stable moderate atrophy of the brain parenchyma. 3. 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 4. Incidental/nonacute findings are listed in the report.
[2023-12-27 18:58] LABS: INR 1.34 (0.8-1.2)
[2023-12-27 19:03] LABS: Lactic Sepsis W/Reflex 1.2 mmol/L (0.5-2.2)
[2023-12-27 19:15] LABS: Alanine Aminotransferase < 5 U/L (0-41); Albumin Level 2.7 g/dL (3.5-5.2); Alkaline Phosphatase 76 U/L (40-130); Anion Gap 16.2 (5-19); Aspartate Amino Transferase 14 U/L (0-40); Blood Urea Nitrogen 76 mg/dL (8-23); Calcium 8.5 mg/dL (8.5-10.5); Carbon Dioxide 20 mmol/L (22-29); Chloride 99 mmol/L (98-107); Globulin 4.2 g/dL (1.3-4.6); Glucose 106 mg/dL (65-115); Magnesium 2.4 mg/dL (1.7-2.3); NT Pro B Type Natriuretic Pept 15097 pg/mL (0-125); Osmolality Calculated 293 mOsm/kg (285-295); Potassium 5.2 mmol/L (3.5-5.1); Sodium 130 mmol/L (136-145); Thyroid Stimulating Hormone 1.49 uIU/mL (0.27-4.20); Total Bilirubin 0.3 mg/dL (0.15-1.2); Total Protein 6.9 g/dL (6.6-8.7)
[2023-12-27] MEDS: sodium chloride 0.9% 1,000 ML 999 ML IV (20:09)
[2023-12-27] MEDS: cefTRIAXone 1,000 MG in sodium chloride 0.9% (plus) 50 ML 100 MG IV (20:10)
[2023-12-27 20:53] LABS: Ammonia 20 umol/L (16-60)
[2023-12-27 20:56] LABS: Specific Gravity, Urine 1.015 (1.005-1.030); Urine Appearance Hazy (CLEAR); Urine Color Yellow (Yellow); pH Urine 5 (5-7)
[2023-12-27 20:57] LABS: Add Urine Microscopic? YES; Amorphous Sediment Urine 1+ /hpf; Bacteria Urine 2+ /hpf; Bilirubin Urine Neg (Negative); Blood Urine Neg (Negative); Glucose Urine UA Norm (Normal); Ketones Urine Negative (Negative); Leukocyte Esterase Urine 1+ (Negative); Mucus Urine TRACE /hpf; Nitrate Urine Positive (Negative); Protein Urine Neg (Negative); RBC Urine 0-4 /hpf (0-2); Squamous Epithelial Cell Urine 0-4 /hpf (0-5); Urobilinogen Urine Neg (Negative); WBC Urine 15-25 /hpf (0-5)
[2023-12-27 20:58] LABS: Add Urine Culture? Yes
[2023-12-27 22:00] VITALS: PULSE 93
--- NOTE | 2023-12-27 22:27 | PC.NURSE ---
[employer] ASSESSMENT pt lives in a group home
[2023-12-27] MEDS: azithromycin 500 MG in sodium chloride 0.9% 250 ML 250 MG IV (22:57)
[2023-12-27 23:03] LABS: C.Diff PCR (Lab) NEGATIVE (Negative)
--- NOTE | 2023-12-27 23:19 | PM.HP ---
Providers/Chief Complaint Admitting Physician: Gina Whitley MD Primary Care Provider: David Austin Chief Complaint: AMS History of Present Illness Mirza Rodrigues is a 73 year old male with a PMH of dementia, intellectual disability, COPD, h/o recurrent aspiration pneumonia declined PEG placement on previous admissions, on 2lpm prn, [place] resident at [facility] [place] brought to the ER After being noted to be hypotensive I am going and having [facility] status at the [facility]. Patient was difficult to awaken reportedly at the [facility]. Blood pressure reported to be in the 60s. By the time he arrived at the ER, he was normotensive. Vital signs with blood pressure 118/64, heart rate 86/min. He was able to be awakened easily, answers simple questions, however unable to participate in extended conversation. In reviewing past notes this appears to be his baseline. He was noted to have 2-3 episodes of mucoid diarrhea, tested negative for C. difficile. Denies any fever chills nausea vomiting or abdominal pain. CT head without acute intracranial events. Chest x-ray shows a right lower lobe pneumonia. Review of Systems General: Reports: ROS unobtainable due to mental status Medications/Allergies Home Medications Medication Instructions Recorded Confirmed Last Taken Type aspirin 81 mg tablet,delayed 81 mg PO DAILY@10/04/19 11/29/22 11/29/22 History release (Adult Low Dose Aspirin) docusate sodium 100 mg capsule 200 mg PO BID@10/04/19 11/29/22 04/25/22 History (Colace) dutasteride 0.5 mg capsule 0.5 mg PO DAILY@10/04/19 11/29/22 11/28/22 History (Avodart) esomeprazole magnesium 40 mg 40 mg PO DAILY@10/04/19 11/29/22 11/29/22 History capsule,delayed release (Nexium) levetiracetam 500 mg tablet 500 mg PO BID@10/04/19 11/29/22 11/29/22 History (Keppra) polyethylene glycol 3350 17 17 gm PO DAILY PRN Constipation 10/04/19 11/29/22 Unknown History gram/dose oral powder (Miralax) tamsulosin 0.4 mg capsule (Flomax) 0.4 mg PO DAILY@20 10/04/19 11/29/22 11/28/22 History lactulose 10 gram/15 mL oral 10 gm PO DAILY PRN Constipation 06/01/20 11/29/22 Unknown History solution nut. tx, spec. form, See Rx Instructions PO TID 06/01/20 11/29/22 11/29/22 History lac-free,iron-fos 0.08 gram-2 kcal/mL oral liquid (TwoCal HN) fluticasone propionate 50 1 spray intranasal DAILY@07/27/20 11/29/22 04/25/22 History mcg/actuation nasal spray,suspension mirtazapine 15 mg tablet 7.5 mg PO DAILY@07/27/20 11/29/22 11/28/22 History albuterol sulfate 90 mcg/actuation 2 puff inhalation Q4H.RESPIRATORY 07/29/20 11/29/22 04/25/22 Rx aerosol inhaler (Ventolin HFA) PRN Shortness Of Breath #18 grams ipratropium bromide 21 mcg (0.03 2 spray intranasal TID PRN unknown 11/01/20 11/29/22 11/29/22 History %) nasal spray albuterol sulfate 90 mcg/actuation 2 puff inhalation Q4H 06/13/21 11/29/22 11/29/22 History aerosol inhaler escitalopram oxalate 10 mg tablet 10 mg PO DAILY@08 06/13/21 11/29/22 11/29/22 History (Lexapro) gabapentin 300 mg capsule 300 mg PO DAILY 06/13/21 11/29/22 11/29/22 History hydrocodone 5 mg-acetaminophen 325 1 tab PO Q4H PRN Pain 06/13/21 11/29/22 11/28/22 History mg tablet ropinirole 0.25 mg tablet 0.25 mg PO DAILY@06/13/21 11/29/22 11/28/22 History acetaminophen 650 mg 650 mg PO Q4H PRN Pain 04/25/22 11/29/22 11/29/22 History tablet,extended release (Mapap Arthritis Pain) cetirizine 10 mg tablet 10 mg PO DAILY 04/25/22 11/29/22 11/29/22 History gabapentin 600 mg tablet 600 mg PO BEDTIME 04/25/22 11/29/22 11/28/22 History melatonin 1 mg tablet 1 mg PO BEDTIME 04/25/22 11/29/22 11/28/22 History ondansetron 4 mg disintegrating 4 mg PO Q4H PRN Nausea And Vomiting 04/25/22 11/29/22 11/29/22 History tablet budesonide 0.5 mg/2 mL suspension 0.5 mg inhalation BID 11/29/22 11/29/22 11/29/22 History for nebulization divalproex 500 mg tablet,delayed 500 mg PO TID 11/29/22 11/29/22 11/29/22 History release mupirocin 2 % topical ointment 1 applic topical BID PRN Rash 11/29/22 11/29/22 Unknown History ondansetron 4 mg disintegrating 4 mg PO Q8H PRN nausea and 11/29/22 Unknown Rx tablet vomiting #20 tabs Allergies Allergy/AdvReac Type Severity Reaction Status Date / Time metoprolol Allergy Unknown Unknown Verified 11/29/22 11:02 naproxen Allergy Unknown Verified 11/29/22 11:02 tramadol [From Ultram] Allergy Unknown Verified 11/29/22 11:02 PFSH Acute PFSH: Medical History (Updated 12/28/23 @ 06:48 by Gina Whitley MD) Influenza B Recurrent aspiration pneumonia Dementia Aspiration pneumonia Dysphagia COPD (chronic obstructive pulmonary disease) Chronic kidney disease Peptic ulcer disease Vitamin D deficiency Hypertension Hydronephrosis Iron deficiency anemia Small bowel obstruction Pyuria Neurogenic bladder Renal mass, right Bilateral hydronephrosis Major depressive disorder, recurrent episode, in partial remission with anxious distress Major depressive disorder, recurrent, in partial remission Surgical History History of esophagogastroduodenoscopy (EGD) Hx of appendectomy History of colostomy reversal History of total left hip replacement History of transurethral resection of prostate Family History Father , AT AGE 49 [place] No problems noted. Mother , AT AGE 58 [place] No problems noted. Sister Cancer STOMACH Social History Smoking and tobacco/nicotine status: current some day tobacco/nicotine user cigarettes [ Other cigarette details: 6yr hx] Quit status (tobacco/nicotine): not considering quitting Second hand smoke exposure: Yes Alcohol intake: former Substance/Drug Use: never Adopted: No Caregiver/support person: No Lives independently: No Housing: Penitentiary Marital status: Single service: No Current occupational status: disabled Pets and animals: Yes Do you think of yourself as: Straight/Heterosexual Current gender identity: Male Vitals/I&O/Wt Last Vital Signs Temp 97.6 F 12/27/23 18:27 Pulse 89 12/27/23 18:27 Resp 22 H 12/27/23 18:27 BP 118/64 12/27/23 18:27 O2 Del Method Nasal Cannula 12/27/23 18:27 O2 Flow Rate 3 12/27/23 18:27 12/27/23 12/27/23 12/28/23 14:59 22:59 06:59 Intake Total 1050 / 1050 Balance 1050 / 1050 Weight last 48 hrs Weight 59.693 kg Weight 59.693 kg Physical Exam Narrative: General: No acute distress, AO x1-2 HEENT: PERRLA, pupils bilaterally equal and reactive, pallors not present Chest: Normal vesicular breath sounds, no added sounds, equal good air entry bilaterally CVS: S1-S2 regular, no murmurs, no tachycardia, no gallops, no rubs Abdomen: Soft, nontender, no organomegaly, bowel sounds present Neuro: No focal deficits, AO x1-2 Urinary Catheter Management: Sainz: Cath Placed During This Visit: yes Urinary Catheter Date of Insertion: 12/27/23 Urinary Catheter Time of Insertion: 20:32 Data 12/28/23 01:09 12/28/23 01:09 Micro: Microbiology 12/27/23 20:24 Blood Culture - Preliminary Blood SPECIMEN COLLECTED 12/27/23 20:26 Blood Culture - Preliminary Blood SPECIMEN COLLECTED Other data: Radiology Impressions Chest X-Ray 12/27/23 18:29 IMPRESSION: 1. Interval development of right lower lobe airspace disease suspicious for pneumonia. Recommend followup chest imaging to insure resolution of these findings. 2. Incidental/nonacute findings are listed in the report. Head CT 12/27/23 18:55 IMPRESSION: 1. No acute abnormality of the brain. 2. Stable moderate atrophy of the brain parenchyma. 3. 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 4. Incidental/nonacute findings are listed in the report. Laboratory Results WBC 10.01 10^3/uL (3.29-11.43) 12/28/23 01:09 RBC 4.09 10^6/uL (3.85-5.65) 12/28/23 01:09 Hgb 12.00 g/dL (11.27-16.99) 12/28/23 01:09 Hct 39.2 % (37-53) 12/28/23 01:09 MCV 95.8 fl (82-101) 12/28/23 01:09 MCH 29.3 pg (27-33) 12/28/23 01:09 MCHC 30.6 g/dL (30-55) 12/28/23 01:09 RDW 14.5 % (12.1-15.1) 12/28/23 01:09 Plt Count 224 10^3/cmm (157-399) 12/28/23 01:09 MPV 10.3 fL (7.4-10.4) 12/28/23 01:09 Neut % (Auto) 89.1 % 12/28/23 01:09 Lymph % (Auto) 4.5 % 12/28/23 01:09 [place] % (Auto) 5.3 % 12/28/23 01:09 Eos % (Auto) 0.3 % 12/28/23 01:09 Baso % (Auto) 0.5 % 12/28/23 01:09 Neut # (Auto) 8.92 10^3/uL (1.8-7.7) H 12/28/23 01:09 Lymph # (Auto) 0.5 10^3/uL (0.8-4.8) L 12/28/23 01:09 [place] # (Auto) 0.5 10^3/uL (0.2-0.9) 12/28/23 01:09 Eos # (Auto) 0.0 10^3/uL (0.0-0.8) 12/28/23 01:09 Baso # (Auto) 0.1 10^3/uL (0.0-0.1) 12/28/23 01:09 Nucleated RBC % (auto) 0 % 12/28/23 01:09 Nucleated RBCs # 0.0 /100WBC 12/28/23 01:09 PT 17.00 SECONDS (12.1-14.9) H 12/27/23 18:35 INR 1.34 (0.8-1.2) H 12/27/23 18:35 Specimen Type Arterial 12/27/23 18:28 Sample Site Radial, left 12/27/23 18:28 ABG pH 7.27 (7.35-7.45) L 12/27/23 18:28 ABG pCO2 42.7 mmHg (35-45) 12/27/23 18:28 ABG pO2 67.3 mmHg (80.0-100.0) L 12/27/23 18:28 ABG PO2/FiO2 Ratio 0 12/27/23 18:28 ABG HCO3 19.6 mmol/L (22-26) L 12/27/23 18:28 ABG Base Excess -6.9 mmol/L (-2.0-2.0) L 12/27/23 18:28 Cristino Test Pos 12/27/23 18:28 Hematocrit 32.1 % (42-52) L 12/27/23 18:28 O2 Delivery Device Nc 12/27/23 18:28 O2 Liters/Min 3.0 % 12/27/23 18:28 FiO2 32.0 % 12/27/23 18:28 Transport Tank Technician ID Cak 12/27/23 18:28 Sodium 132 mmol/L (136-145) L 12/28/23 01:09 Potassium 4.9 mmol/L (3.5-5.1) 12/28/23 01:09 Chloride 100 mmol/L (98-107) 12/28/23 01:09 Carbon Dioxide 18 mmol/L (22-29) L 12/28/23 01:09 Anion Gap 18.9 (5-19) 12/28/23 01:09 BUN 71 mg/dL (8-23) H 12/28/23 01:09 Creatinine 1.9 mg/dL (0.7-1.2) H 12/28/23 01:09 GFR Calculation Not Reportable 12/28/23 01:09 Glucose 88 mg/dL (65-115) 12/28/23 01:09 Calculated Osmolality 294 mOsm/kg (285-295) 12/28/23 01:09 Lactic Acid 1.2 mmol/L (0.5-2.2) 12/27/23 18:35 Calcium 8.6 mg/dL (8.5-10.5) 12/28/23 01:09 Magnesium 2.4 mg/dL (1.7-2.3) H 12/27/23 18:35 Total Bilirubin 0.3 mg/dL (0.15-1.2) 12/28/23 01:09 AST 16 U/L (0-40) 12/28/23 01:09 ALT < 5 U/L (0-41) 12/28/23 01:09 Alkaline Phosphatase 94 U/L (40-130) 12/28/23 01:09 Ammonia 20 umol/L (16-60) 12/27/23 20:26 NT-Pro-B Natriuret Pep 21763 pg/mL (0-125) H 12/27/23 18:35 Total Protein 7.1 g/dL (6.6-8.7) 12/28/23 01:09 Albumin 3.0 g/dL (3.5-5.2) L 12/28/23 01:09 Globulin 4.1 g/dL (1.3-4.6) 12/28/23 01:09 TSH 1.49 uIU/mL (0.27-4.20) 12/27/23 18:35 Urine Color Yellow (Yellow) 12/27/23 19:01 Urine Appearance Hazy (CLEAR) A 12/27/23 19:01 Urine pH 5 (5-7) 12/27/23 19:01 Ur Specific [place] 1.015 (1.005-1.030) 12/27/23 19:01 Urine Protein Neg (Negative) 12/27/23 19:01 Urine Glucose (UA) Norm (Normal) 12/27/23 19:01 Urine Ketones Negative (Negative) 12/27/23 19: Urine Blood Neg (Negative) 12/27/23 19: Urine Nitrate Positive (Negative) H 12/27/23 19:01 Urine Bilirubin Neg (Negative) 12/27/23 19: Urine Urobilinogen Neg mg/dL (Negative) 12/27/23 19:01 Ur Leukocyte Esterase 1+ (Negative) H 12/27/23 19:01 Urine RBC 0-4 /hpf (0-2) H 12/27/23 19:01 Urine WBC 15-25 /hpf (0-5) H 12/27/23 19:01 Ur Squamous Epith Cells 0-4 /hpf (0-5) H 12/27/23 19:01 Amorphous Sediment 1+ /hpf 12/27/23 19:01 Urine Bacteria 2+ /hpf (NONE) H 12/27/23 19:01 Coarse Granular Casts 5-10 /lpf H 12/27/23 19:01 Urine Mucus Trace /hpf 12/27/23 19:01 Valproic Acid 16.7 ug/mL (50-100) L 12/28/23 01:09 C. difficile (PCR) Negative (Negative) 12/27/23 21:50 Influenza Type A Ag negative (Negative) 12/27/23 00:55 Influenza Type B Ag positive (Negative) H 12/27/23 00:55 SARS-CoV-2 Ag (Rapid) negative (Negative) 12/27/23 00:55 A&P Assessment and plan (1) Pneumonia: (2) Dyspnea: Qualifiers: Dyspnea type: unspecified Qualified Code(s): R06.00 - Dyspnea, unspecified (3) AMS (altered mental status): (4) UTI (urinary tract infection): Plan 73-year-old male with a past medical history as outlined above, [facility] with more disorientation compared to baseline. Found to have evidence of right lower lobe pneumonia on evaluation. Suspect that altered mental status is related to metabolic encephalopathy from pneumonia. Admit to [facility] Start renally dosed meropenem and azithromycin 500 mg p.o. daily for community-acquired pneumonia. Check urine bacterial antigen, urine Legionella antigen, MRSA nares COVID antigen and influenza antigens. Showing signs of mild dehydration, sodium chloride at 50 cc an hour, careful hydration in view of past history of diastolic CHF. Check Depakote levels, review of notes shows patient is both on divalproex and Keppra, home medication list still needs to be reconciled. RADHA with creatinine up to 2.2, previous baseline between 1.4-1.7. Has a history of bilateral hydronephrosis from bladder outlet obstruction per review of past urology notes. Will obtain renal ultrasound to assess for any worsening of the hydronephrosis He UA positive for leukocyte esterase, positive nitrate, 15-25 WBCs. Past history of ESBL E. coli on urine cultures. Using meropenem to cover for UTI + pneumonia as noted above. Sputum culture and Gram stain if able to expectorate. Supplemental O2 to keep saturation greater than 92%. Further orders depending on clinical course DVT prophylaxis: Heparin 5000 units subcutaneously every 12 hours DNR/DNI Attestations Medical Necessity Statement*: Greater than 2 midnight admission is anticipated at this time Coding Level of Care Code Acute Code for Chg Fwd High MDM includes number and complexity of problems actively addressed during encounter, amount and/or complexity of data reviewed/ordered and described risk of complication, morbidity or mortality of management as documented Diagnoses Pneumonia J18.9 Dyspnea, unspecified type R06.00 Dyspnea type: unspecified AMS (altered mental status) R41.82 UTI (urinary tract infection) N39.0
[2023-12-27 23:24] VITALS: BP 117/74; PULSE 93; RESP 18; O2SAT 99
[2023-12-28] VITALS (12 sets, daily range): BP systolic 102–146; BP diastolic 47–72; PULSE 86–108; RESP 16–19; TEMP 35.8–37; O2SAT 92–99
[2023-12-28] MEDS: sodium chloride 0.9% 1,000 ML 50 ML IV ×2 (00:04→17:44)
[2023-12-28] MEDS: meropenem 500 MG in sodium chloride 0.9% (plus) 50 ML 100 MG IV ×3 (00:13→23:14)
[2023-12-28] MEDS: heparin 5,000 unit/mL INJ 1 mL 5000 UNIT SUBCUT ×3 (00:14→23:14)
[2023-12-28 01:40] LABS: SARS Covid-2 Antigen negative (Negative)
[2023-12-28 01:41] LABS: Influenza A by IFA negative (Negative); Influenza B by IFA positive (Negative)
[2023-12-28 02:00] LABS: Basophils # 0.1 10^3/uL (0.0-0.1); Basophils % 0.5 %; Eosinophils % 0.3 %; Hematocrit 39.2 % (37-53); Lymphocytes # 0.5 10^3/uL (0.8-4.8); Lymphocytes % 4.5 %; Mean Corpuscular HGB Conc 30.6 g/dL (30-55); Mean Corpuscular Hemoglobin 29.3 pg (27-33); Mean Corpuscular Volume 95.8 fl (82-101); Mean Platelet Volume 10.3 fL (7.4-10.4); Monocytes # 0.5 10^3/uL (0.2-0.9); Monocytes % 5.3 %; Neutrophils # 8.92 10^3/uL (1.8-7.7); Neutrophils % 89.1 %; Nucleated Red Blood Cells % 0 %; Platelet Count 224 10^3/cmm (157-399); Red Blood Count 4.09 10^6/uL (3.85-5.65); Red Cell Distribution Width 14.5 % (12.1-15.1); White Blood Count 10.01 10^3/uL (3.29-11.43)
[2023-12-28 02:27] LABS: Alanine Aminotransferase < 5 U/L (0-41); Alkaline Phosphatase 94 U/L (40-130); Aspartate Amino Transferase 16 U/L (0-40); Blood Urea Nitrogen 71 mg/dL (8-23); Calcium 8.6 mg/dL (8.5-10.5); Carbon Dioxide 18 mmol/L (22-29); Chloride 100 mmol/L (98-107); Creatinine Clr Calc Pharmacy 28.7993; Globulin 4.1 g/dL (1.3-4.6); Glucose 88 mg/dL (65-115); Osmolality Calculated 294 mOsm/kg (285-295); Sodium 132 mmol/L (136-145); Total Bilirubin 0.3 mg/dL (0.15-1.2); Total Protein 7.1 g/dL (6.6-8.7)
[2023-12-28 02:28] LABS: Anion Gap 18.9 (5-19); Potassium 4.9 mmol/L (3.5-5.1)
[2023-12-28 02:29] LABS: Valproic Acid Level 16.7 ug/mL (50-100)
--- NOTE | 2023-12-28 06:24 | USR_ITS ---
PROCEDURE INFORMATION: Exam: US Retroperitoneal; Complete; Kidneys and Bladder Exam date and time: 12/28/2023 8:16 AM Age: 73 years old Clinical indication: Condition or disease; Kidney or ureter condition; Hydroureter; Additional info: Aly, evaluate for worsening hydronephrosis TECHNIQUE: Imaging protocol: Real-time ultrasound of the retroperitoneum with image documentation. Complete exam focused on the kidneys and bladder. COMPARISON: CT abdomen pelvis wo con [id number] 07/27/2020 3:57 PM FINDINGS: Right kidney: The right kidney measures 9.6 cm in length, is lobulated in contour with mild hydronephrosis and prominent extrarenal pelvis. Left kidney: The left kidney measures 9.3 cm in length with a lobular contour and thin cortex and mild hydronephrosis. Urinary bladder: Urinary bladder is partially contracted around a Sainz catheter. US/US renal BI* [id number] IMPRESSION: Mild hydronephrosis. Renal cortical thinning.
[2023-12-28] MEDS: budesonide 0.5 mg/2 mL Neb INHALATION ×2 (08:59→19:26)
--- NOTE | 2023-12-28 09:47 | PC.PHAR ---
PT IS FROM [facility]. 12/28/23
[2023-12-28] MEDS: oseltamivir phosphate 30 mg Capsule PO ×2 (10:27→17:44)
[2023-12-28] MEDS: pantoprazole DR 40 mg Tablet PO (10:27)
[2023-12-28] MEDS: escitalopram 10 mg Tablet PO (10:27)
[2023-12-28] MEDS: levETIRAcetam 500 mg Tablet PO ×2 (10:38→20:49)
[2023-12-28] MEDS: azithromycin 250 mg Tablet 500 MG PO (10:38)
[2023-12-28] MEDS: tamsulosin 0.4 mg Capsule 0.400000000000000022 MG PO ×2 (11:53→23:14)
[2023-12-28 14:57] LABS: C.Diff PCR (Lab) NEGATIVE (Negative)
--- NOTE | 2023-12-28 15:09 | PM.PN ---
Subjective Subjective: Patient was seen this morning, he is alert to person, to place, not to time, denies any focal weakness, can move bilateral upper and lower extremities can follow commands, he does not know why he is here in the hospital, denies any abdominal pain, no nausea, no vomiting Vitals/I&O/Wt Last Vital Signs Temp 97.7 F 12/28/23 07:28 Pulse 108 H 12/28/23 08:56 Resp 17 12/28/23 11:46 BP 146/71 12/28/23 11:46 Pulse Ox 98 12/28/23 08:56 O2 Del Method Nasal Cannula 12/28/23 08:56 O2 Flow Rate 2 12/28/23 08:56 12/28/23 12/28/23 12/28/23 06:59 14:59 22:59 Intake Total 420 / 1470 340 / 340 Output Total 950 / 950 250 / 250 Balance -530 / 520 90 / 90 Weight last 48 hrs Weight 63.458 kg Weight 59.693 kg Weight 59.693 kg Physical Exam Const: COMMON NORMALS: no acute distress EXAM LIMITATIONS: altered mental status GENERAL APPEARANCE: frail appearing ORIENTATION/CONSCIOUSNESS: Yes awake, Yes oriented to person and Yes oriented to place; not oriented to time Resp: COMMON NORMALS: normal respiratory effort, No retractions, No use of accessory muscles and clear to auscultation bilaterally AUSCULTATION: clear to auscultation bilaterally Cardio: COMMON NORMALS: regular rate, regular rhythm, S1 normal heart sound present and S2 normal heart sound present RATE: regular rate RHYTHM: regular rhythm HEART SOUNDS: S1 normal heart sound present and S2 normal heart sound present GI: COMMON NORMALS: Normal to inspection, nondistended, normoactive bowel sounds present and non-tender Extremity: COMMON NORMALS: no pedal edema Neuro: SENSORIUM/ORIENTATION: Yes oriented to person, Yes oriented to place and No oriented to time Skin: NARRATIVE SKIN EXAM: Has evidence of moderate to severe protein calorie malnutrition, muscle wasting, with bilateral temporal muscle wasting, muscle wasting of bilateral shoulders bilateral arms, bilateral thighs, bilateral calves,loss of subcutaneous fat over ribs making him more prominent, loose skin over abdomen, loss of muscles over clavicles Urinary Catheter Management: Sainz: Cath Placed During This Visit: yes Reason for Continuing Indwelling Catheter: Other Urinary Catheter Date of Insertion: 12/27/23 Urinary Catheter Time of Insertion: 20:32 Data 12/28/23 01:09 12/28/23 01:09 Micro: Microbiology 12/27/23 23:30 Bacterial Antigens - Final Urine,Clean Catch 12/27/23 19:01 Legionella Urinary Antigen - Final Urine,Voided 12/27/23 20:24 Blood Culture - Preliminary Blood SPECIMEN COLLECTED 12/27/23 20:26 Blood Culture - Preliminary Blood SPECIMEN COLLECTED A&P Assessment and plan (1) Pneumonia: (2) Dyspnea: Qualifiers: Dyspnea type: unspecified Qualified Code(s): R06.00 - Dyspnea, unspecified (3) AMS (altered mental status): (4) UTI (urinary tract infection): (5) Moderate protein-calorie malnutrition: (6) Muscle wasting: (7) Physical deconditioning: (8) Influenza B: (9) Acute encephalopathy: Plan 73-year-old male with a past medical history as outlined above, presenting from [facility] with more disorientation compared to baseline. Acute encephalopathy ? Secondary to pneumonia, UTI Right lower lobe pneumonia Chest x-ray shows evidence of right lower lobe pneumonia Admit to [facility] Continue meropenem ?continue azithromycin Check urine bacterial antigen, urine Legionella antigen, MRSA nares COVID antigen and influenza antigens. UTI ? From the [facility] corrected as ESBL risk factors, continue meropenem ? Follow urine cultures Dehydration Showing signs of mild dehydration, sodium chloride at 50 cc an hour, careful hydration in view of past history of diastolic CHF. Acute kidney injury RADHA with creatinine up to 2.2 previous baseline between 1.4-1.7 -Has a history of bilateral hydronephrosis from bladder outlet obstruction per review of past urology notes -Renal ultrasound - US/US renal BI* [id number] IMPRESSION: Mild hydronephrosis. Renal cortical thinning. Supplemental O2 to keep saturation greater than 92%. Physical deconditioning, moderate protein calorie malnutrition, low BMI, muscle wasting ? Consult dietary, consult speech, PT OT ? Dietary supplementation, aspiration precautions DVT prophylaxis: Heparin 5000 units subcutaneously every 12 hours DNR/DNI Attestations Medical Necessity Statement*: Patient requires hospitalization, inpatient, greater than 2 midnights, for acute encephalopathy UTI, pneumonia, RADHA, dehydration, protein calorie malnutrition, physical deconditioning, low BMI, muscle wasting Diagnoses Pneumonia J18.9 Dyspnea, unspecified type R06.00 Dyspnea type: unspecified AMS (altered mental status) R41.82 UTI (urinary tract infection) N39.0 Moderate protein-calorie malnutrition E44.0 Muscle wasting M62.50 Physical deconditioning R53.81 Influenza B J10.1 Acute encephalopathy G93.40
--- NOTE | 2023-12-28 18:17 | PC.NURSE ---
residential stated that coffee causes diarrhea.
[2023-12-28] MEDS: ropinirole 0.25 mg Tablet PO (20:49)
[2023-12-29] VITALS (7 sets, daily range): BP systolic 126–156; BP diastolic 48–77; PULSE 76–94; RESP 17–18; TEMP 36.6–37.2; O2SAT 93–97
[2023-12-29 06:42] LABS: Basophils % 0.3 %; Eosinophils # 0.2 10^3/uL (0.0-0.8); Eosinophils % 2.3 %; Hematocrit 31.3 % (37-53); Lymphocytes # 0.5 10^3/uL (0.8-4.8); Lymphocytes % 6.8 %; Mean Corpuscular HGB Conc 30.7 g/dL (30-55); Mean Corpuscular Hemoglobin 29.1 pg (27-33); Mean Corpuscular Volume 94.8 fl (82-101); Mean Platelet Volume 9.9 fL (7.4-10.4); Monocytes # 0.5 10^3/uL (0.2-0.9); Monocytes % 7.4 %; Neutrophils # 5.49 10^3/uL (1.8-7.7); Neutrophils % 82.9 %; Nucleated Red Blood Cells % 0 %; Platelet Count 183 10^3/cmm (157-399); Red Cell Distribution Width 14.5 % (12.1-15.1); White Blood Count 6.62 10^3/uL (3.29-11.43)
[2023-12-29 06:59] LABS: Anion Gap 15.2 (5-19); Blood Urea Nitrogen 64 mg/dL (8-23); Calcium 8.5 mg/dL (8.5-10.5); Carbon Dioxide 16 mmol/L (22-29); Chloride 110 mmol/L (98-107); Creatinine Clr Calc Pharmacy 39.0668; Glucose 93 mg/dL (65-115); Osmolality Calculated 302 mOsm/kg (285-295); Potassium 4.2 mmol/L (3.5-5.1); Sodium 137 mmol/L (136-145)
[2023-12-29] MEDS: azithromycin 250 mg Tablet 500 MG PO (09:03)
[2023-12-29] MEDS: escitalopram 10 mg Tablet PO (09:03)
[2023-12-29] MEDS: oseltamivir phosphate 30 mg Capsule PO ×2 (09:04→17:39)
[2023-12-29] MEDS: pantoprazole DR 40 mg Tablet PO (09:04)
[2023-12-29] MEDS: levETIRAcetam 500 mg Tablet PO ×2 (09:04→20:40)
[2023-12-29] MEDS: budesonide 0.5 mg/2 mL Neb INHALATION (09:43)
--- NOTE | 2023-12-29 09:47 | PC.RESP ---
Pt is c/o foot jumping?
--- NOTE | 2023-12-29 10:05 | PC.CHAP ---
Pastoral Care Encounter/Spiritual Assessment Type of Contact [] Declined director furniture visit [] Patient/Family/Request visit [] Outpatient visit [] Follow-up visit [] Physician referral [] Code/Alert [x] Routine visit [] Staff referral [] Actively dying [] Patient sleeping [] Family support [] [] Out of room [] Palliative care [] [] Receiving care in room [] Pre-surgical visit [] Trauma [] Long length of stay [] ICU visit [x] Other: Relational/Emotional Strength [] Patient feels connected with others/family/visitors/staff [] Distress [] Loneliness/isolation [] Abandonment Spirituality of Patient [] Person of Coretta [] Attends Spiritism of their Coretta [] Believes in Prayer [] Reads Bible or Roman Catholic materials [] There are Spiritual issues to be addressed Head Packager Interventions [] Prayer [] Active listening [] Non-anxious presence [] Spiritual/emotional support [] Crisis/trauma care [] Spiritual counseling [] Bereavement support [] Provided bereavement packet [] Provided Bible/devotional materials [] Provided toy/stuffed animal, coloring book to patient or family member [] Provided Communion [] Anointing/Vici [] Salvation [] Completed spiritual assessment [] Other: Impact on Illness or Injury [] Angry [] Fearful [] Anxious [] Often cries [] Exhaustion [] Unable to work [] Unable to attend pentecostalism [] Unable to walk/stand [] Unable to read [] Unable to drive [] Unable to eat/drink [] Unable to sleep [] Unable to be with family [] Patient intubated [] Other: Summary precaution Time spent with patient
[2023-12-29] MEDS: tamsulosin 0.4 mg Capsule 0.400000000000000022 MG PO ×2 (12:07→23:19)
[2023-12-29] MEDS: meropenem 500 MG in sodium chloride 0.9% (plus) 50 ML 100 MG IV ×2 (12:08→23:19)
[2023-12-29] MEDS: heparin 5,000 unit/mL INJ 1 mL 5000 UNIT SUBCUT ×2 (12:10→23:19)
--- NOTE | 2023-12-29 14:02 | PC.NURSE ---
Spoke with Blanka Rai [phone] patient's public administer and gave her an update. Blanka would like to be notified when the patient is being discharged.
--- NOTE | 2023-12-29 14:19 | PC.SOCIAL ---
IMM Update Pg. 2 of IMM updated and reviewed. Copy provided.
--- NOTE | 2023-12-29 14:37 | P.PN_ITS ---
Subjective 2 Subjective: Patient was seen this morning, denies any fevers, no chills, no nausea, no vomiting, Vitals/I&O/Wt Last Vital Signs Temp 98.4 F 12/29/23 12:00 Pulse 86 12/29/23 12:00 Resp 18 12/29/23 12:00 BP 146/77 12/29/23 12:00 Pulse Ox 95 12/29/23 12:00 O2 Del Method Nasal Cannula 12/29/23 08:00 O2 Flow Rate 2 12/29/23 08:00 12/28/23 12/29/23 12/29/23 22:59 06:59 14:59 Intake Total 1123.333 / 1463.333 170 / 1633.333 236 / 236 Output Total 600 / 850 250 / 1100 Balance 523.333 / 613.333 -80 / 533.333 236 / 236 Weight last 48 hrs Weight 64.728 kg Weight 63.458 kg Weight 59.693 kg Weight 59.693 kg Physical Exam 2 Const: COMMON NORMALS: no acute distress and patient oriented x3 Resp: COMMON NORMALS: normal respiratory effort, No retractions and No use of accessory muscles AUSCULTATION: wheezes Cardio: COMMON NORMALS: regular rate, regular rhythm, S1 normal heart sound present and S2 normal heart sound present RATE: regular rate RHYTHM: r egular rhythm HEART SOUNDS: S1 normal heart sound present and S2 normal heart sound present GI: COMMON NORMALS: Normal to inspection, nondistended, normoactive bowel sounds present and non-tender Extremity: COMMON NORMALS: no pedal edema Neuro: COMMON NORMALS: patient oriented x3 Urinary Catheter Management: Sainz: Cath Placed During This Visit: yes Reason for Continuing Indwelling Catheter: Other Urinary Catheter Date of Insertion: 12/27/23 Urinary Catheter Time of Insertion: 20:32 Data 12/29/23 06:00 12/29/23 06:33 Micro: Microbiology 12/27/23 19:01 Urine Culture - Preliminary Urine,Clean Catch Gram Negative Rods 12/27/23 20:24 Blood Culture - Preliminary Blood NEGATIVE TO DATE 12/27/23 20:26 Blood Culture - Preliminary Blood NEGATIVE TO DATE 12/27/23 23:30 Bacterial Antigens - Final Urine,Clean Catch A&P Assessment and plan (1) Pneumonia: (2) Dyspnea: Qualifiers: Dyspnea type: unspecified Qualified Code(s): R06.00 - Dyspnea, unspecified (3) AMS (altered mental status): (4) UTI (urinary tract infection): (5) Moderate protein-calorie malnutrition: (6) Muscle wasting: (7) Physical deconditioning: (8) Influenza B: (9) Acute encephalopathy: Plan 73-year-old male with a past medical history as outlined above, presenting from [facility] with more disorientation compared to baseline. Acute encephalopathy ? Secondary to pneumonia, UTI Right lower lobe pneumonia Chest x-ray shows evidence of right lower lobe pneumonia Admit to [facility] Continue meropenem ?continue azithromycin Check urine bacterial antigen, urine Legionella antigen, MRSA nares COVID antigen and influenza antigens. Influenza B, continue Tamiflu, day 2 of 5 UTI ? From the [facility] corrected as ESBL risk factors, continue meropenem ? Follow urine cultures ? Patient might require PICC line placement with long-term IV antibiotics based on clinical progress Dehydration Showing signs of mild dehydration, sodium chloride at 50 cc an hour, careful hydration in view of past history of diastolic CHF. Acute kidney injury RADHA with creatinine up to 2.2 previous baseline between 1.4-1.7 -Has a history of bilateral hydronephrosis from bladder outlet obstruction per review of past urology notes -Renal ultrasound - US/ renal BI* [id number] IMPRESSION: Mild hydronephrosis. Renal cortical thinning. Supplemental O2 to keep saturation greater than 92%. Physical deconditioning, moderate protein calorie malnutrition, low BMI, muscle wasting ? Consult dietary, consult speech, PT OT ? Dietary supplementation, aspiration precautions DVT prophylaxis: Heparin 5000 units subcutaneously every 12 hours DNR/DNI Plan for today continue IV antibiotics meropenem for concerns for ESBL infection, continue Tamiflu, continue broad-spectrum antibiotic therapy, continue gentle IV hydration Attestations 2 Medical Necessity Statement*: Patient requires hospitalization for UTI, pneumonia, influenza Diagnoses Pneumonia J18.9 Dyspnea, unspecified type R06.00 Dyspnea type: unspecified AMS (altered mental status) R41.82 UTI (urinary tract infection) N39.0 Moderate protein-calorie malnutrition E44.0 Muscle wasting M62.50 Physical deconditioning R53.81 Influenza B J10.1 Acute encephalopathy G93.40
[2023-12-29 15:30] LABS: Methicillin-Resist S.aureu PCR NOT DETECTED (NOT DETECTED)
[2023-12-29] MEDS: sodium chloride 0.9% 1,000 ML 50 ML IV (17:41)
[2023-12-29] MEDS: ropinirole 0.25 mg Tablet PO (20:40)
[2023-12-29] MEDS: docusate sodium 100 mg Capsule 200 MG PO (20:40)
[2023-12-30] VITALS: BP 149/76; PULSE 92; RESP 17; TEMP 37.7; O2SAT 96
[2023-12-30 04:00] VITALS: BP 161/86; PULSE 89; RESP 17; TEMP 37; O2SAT 94
[2023-12-30 05:55] LABS: Basophils % 0.2 %; Eosinophils # 0.1 10^3/uL (0.0-0.8); Eosinophils % 1.3 %; Hematocrit 33.6 % (37-53); Lymphocytes # 0.7 10^3/uL (0.8-4.8); Lymphocytes % 13.4 %; Mean Corpuscular HGB Conc 31.5 g/dL (30-55); Mean Corpuscular Hemoglobin 28.9 pg (27-33); Mean Corpuscular Volume 91.6 fl (82-101); Mean Platelet Volume 9.7 fL (7.4-10.4); Monocytes # 0.5 10^3/uL (0.2-0.9); Monocytes % 8.5 %; Neutrophils # 4.02 10^3/uL (1.8-7.7); Neutrophils % 75.8 %; Nucleated Red Blood Cells % 0 %; Platelet Count 192 10^3/cmm (157-399); Red Blood Count 3.67 10^6/uL (3.85-5.65); Red Cell Distribution Width 14.2 % (12.1-15.1)
[2023-12-30 06:15] LABS: Anion Gap 12.7 (5-19); Blood Urea Nitrogen 46 mg/dL (8-23); Calcium 8.7 mg/dL (8.5-10.5); Carbon Dioxide 20 mmol/L (22-29); Chloride 109 mmol/L (98-107); Creatinine Clr Calc Pharmacy 36.4467; Glucose 101 mg/dL (65-115); Osmolality Calculated 298 mOsm/kg (285-295); Potassium 3.7 mmol/L (3.5-5.1); Sodium 138 mmol/L (136-145)
[2023-12-30 07:06] VITALS: BP 167/88; PULSE 89; RESP 15; TEMP 36.7; O2SAT 93
[2023-12-30] MEDS: escitalopram 10 mg Tablet PO (08:34)
[2023-12-30] MEDS: oseltamivir phosphate 30 mg Capsule PO (08:34)
[2023-12-30] MEDS: pantoprazole DR 40 mg Tablet PO (08:34)
[2023-12-30] MEDS: levETIRAcetam 500 mg Tablet PO (08:35)
[2023-12-30] MEDS: azithromycin 250 mg Tablet 500 MG PO (08:35)
[2023-12-30] MEDS: docusate sodium 100 mg Capsule 200 MG PO (08:35)
[2023-12-30] MEDS: budesonide 0.5 mg/2 mL Neb INHALATION (09:14)
[2023-12-30 09:16] VITALS: PULSE 89; RESP 18; O2SAT 96
--- NOTE | 2023-12-30 10:53 | PM.DCS ---
Discharge Providers Date of Admission: 12/27/23 20:18 Date of Discharge: December 30, 2023 Attending Provider at Admission: Gina Whitley MD Attending Provider at Discharge: Gerry Frazier MD Primary Care Provider: David Austin Diagnoses at Discharge Discharge Diagnosis (1) Pneumonia: Status: Acute (2) Dyspnea: Status: Acute Qualifiers: Dyspnea type: unspecified Qualified Code(s): R06.00 - Dyspnea, unspecified (3) AMS (altered mental status): Status: Acute (4) UTI (urinary tract infection): Status: Inactive (5) Moderate protein-calorie malnutrition: Status: Acute (6) Muscle wasting: Status: Acute (7) Physical deconditioning: Status: Acute (8) Influenza B: Status: Acute (9) Acute encephalopathy: Status: Acute Reason for Visit Reason for Visit: AMS Hospital Course Hospital Course Mirza Rodrigues is a 73 year old male with a PMH of dementia, intellectual disability, COPD, h/o recurrent aspiration pneumonia declined PEG placement on previous admissions, on 2lpm prn, [place] resident at [facility] brought to the ER After being noted to be hypotensive I am going and having altered mental status at the care home. Patient was difficult to awaken reportedly at the care home. Blood pressure reported to be in the 60s. By the time he arrived at the ER, he was normotensive. Vital signs with blood pressure 118/64, heart rate 86/min. He was able to be awakened easily, answers simple questions, however unable to participate in extended conversation. In reviewing past notes this appears to be his baseline. He was noted to have 2-3 episodes of mucoid diarrhea, tested negative for C. difficile. Denies any fever chills nausea vomiting or abdominal pain. CT head without acute intracranial events. Chest x-ray shows a right lower lobe pneumonia. This is a 73-year-old male who presents [facility] due to acute encephalopathy secondary to UTI, pneumonia, influenza b For his influenza B, he will be discharged on 3 remaining days of Tamiflu For his dehydration K RADHA, received IV fluids, overall clinically improved For his right lower lobe pneumonia received broad-spectrum antibiotic therapy, remained afebrile, clinically improving, Patient was found to have a ESBL E. coli UTI during his hospitalization, midline placed, will be discharged on 12 remaining days of meropenem Physical Exam Const: COMMON NORMALS: no acute distress ORIENTATION/CONSCIOUSNESS: Yes awake, Yes oriented to person and Yes oriented to place Resp: COMMON NORMALS: normal respiratory effort, No retractions, No use of accessory muscles and clear to auscultation bilaterally AUSCULTATION: clear to auscultation bilaterally Cardio: COMMON NORMALS: regular rate, regular rhythm, S1 normal heart sound present and S2 normal heart sound present RATE: regular rate RHYTHM: regular rhythm HEART SOUNDS: S1 normal heart sound present and S2 normal heart sound present GI: COMMON NORMALS: Normal to inspection, nondistended, normoactive bowel sounds present and non-tender Extremity: COMMON NORMALS: no pedal edema Neuro: SENSORIUM/ORIENTATION: Yes oriented to person and Yes oriented to place Psych: COMMON NORMALS: mental status grossly normal Urinary Catheter Management: Sainz: Cath Placed During This Visit: yes Reason for Continuing Indwelling Catheter: Other Urinary Catheter Date of Insertion: 12/27/23 Urinary Catheter Time of Insertion: 20:32 Discharge Data Studies Completed and Pending Completed Studies During Hospitalization Category Date Time Status CT head wo con* [id number] Stat Cat Scan 12/27/23 18:55 Completed XR chest 1V portable [id number] Stat Exams 12/27/23 18:29 Completed US renal BI* [id number] Routine Ultrasound 12/28/23 06:24 Completed Pending at discharge Category Date Time Status Basic Metabolic Panel AM LABS Lab 12/31/23 04:00 Ordered Blood Culture Stat Lab 12/27/23 20:24 Results Complete Blood Count w/Auto AM LABS Lab 12/31/23 04:00 Ordered Sputum Culture and Gram Stain Routine Lab 12/27/23 23:30 Uncollected Urine Culture Stat Lab 12/27/23 19:01 Results Radiology Impressions Chest X-Ray 12/27/23 18:29 IMPRESSION: 1. Interval development of right lower lobe airspace disease suspicious for pneumonia. Recommend followup chest imaging to insure resolution of these findings. 2. Incidental/nonacute findings are listed in the report. Head CT 12/27/23 18:55 IMPRESSION: 1. No acute abnormality of the brain. 2. Stable moderate atrophy of the brain parenchyma. 3. 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 4. Incidental/nonacute findings are listed in the report. Renal Ultrasound 12/28/23 06:24 IMPRESSION: Mild hydronephrosis. Renal cortical thinning. Laboratory Results WBC 5.30 10^3/uL (3.29-11.43) 12/30/23 05:36 RBC 3.67 10^6/uL (3.85-5.65) L 12/30/23 05:36 Hgb 10.60 g/dL (11.27-16.99) L 12/30/23 05:36 Hct 33.6 % (37-53) L 12/30/23 05:36 MCV 91.6 fl (82-101) 12/30/23 05:36 MCH 28.9 pg (27-33) 12/30/23 05:36 MCHC 31.5 g/dL (30-55) 12/30/23 05:36 RDW 14.2 % (12.1-15.1) 12/30/23 05:36 Plt Count 192 10^3/cmm (157-399) 12/30/23 05:36 MPV 9.7 fL (7.4-10.4) 12/30/23 05:36 Neut % (Auto) 75.8 % 12/30/23 05:36 Lymph % (Auto) 13.4 % 12/30/23 05:36 Cooper % (Auto) 8.5 % 12/30/23 05:36 Eos % (Auto) 1.3 % 12/30/23 05:36 Baso % (Auto) 0.2 % 12/30/23 05:36 Neut # (Auto) 4.02 10^3/uL (1.8-7.7) 12/30/23 05:36 Lymph # (Auto) 0.7 10^3/uL (0.8-4.8) L 12/30/23 05:36 Cooper # (Auto) 0.5 10^3/uL (0.2-0.9) 12/30/23 05:36 Eos # (Auto) 0.1 10^3/uL (0.0-0.8) 12/30/23 05:36 Baso # (Auto) 0.0 10^3/uL (0.0-0.1) 12/30/23 05:36 Nucleated RBC % (auto) 0 % 12/30/23 05:36 Nucleated RBCs # 0.0 /100WBC 12/30/23 05:36 PT 17.00 SECONDS (12.1-14.9) H 12/27/23 18:35 INR 1.34 (0.8-1.2) H 12/27/23 18:35 Specimen Type Arterial 12/27/23 18:28 Sample Site Radial, left 12/27/23 18:28 ABG pH 7.27 (7.35-7.45) L 12/27/23 18:28 ABG pCO2 42.7 mmHg (35-45) 12/27/23 18:28 ABG pO2 67.3 mmHg (80.0-100.0) L 12/27/23 18:28 ABG PO2/FiO2 Ratio 0 12/27/23 18:28 ABG HCO3 19.6 mmol/L (22-26) L 12/27/23 18:28 ABG Base Excess -6.9 mmol/L (-2.0-2.0) L 12/27/23 18:28 Cristino Test Pos 12/27/23 18:28 Hematocrit 32.1 % (42-52) L 12/27/23 18:28 O2 Delivery Device Nc 12/27/23 18:28 O2 Liters/Min 3.0 % 12/27/23 18:28 FiO2 32.0 % 12/27/23 18:28 Inside Sales Territory Manager ID Cak 12/27/23 18:28 Sodium 138 mmol/L (136-145) 12/30/23 05:36 Potassium 3.7 mmol/L (3.5-5.1) 12/30/23 05:36 Chloride 109 mmol/L (98-107) H 12/30/23 05:36 Carbon Dioxide 20 mmol/L (22-29) L 12/30/23 05:36 Anion Gap 12.7 (5-19) 12/30/23 05:36 BUN 46 mg/dL (8-23) H 12/30/23 05:36 Creatinine 1.6 mg/dL (0.7-1.2) H 12/30/23 05:36 GFR Calculation Not Reportable 12/30/23 05:36 Glucose 101 mg/dL (65-115) 12/30/23 05:36 Calculated Osmolality 298 mOsm/kg (285-295) H 12/30/23 05:36 Lactic Acid 1.2 mmol/L (0.5-2.2) 12/27/23 18:35 Calcium 8.7 mg/dL (8.5-10.5) 12/30/23 05:36 Magnesium 2.4 mg/dL (1.7-2.3) H 12/27/23 18:35 Total Bilirubin 0.3 mg/dL (0.15-1.2) 12/28/23 01:09 AST 16 U/L (0-40) 12/28/23 01:09 ALT < 5 U/L (0-41) 12/28/23 01:09 Alkaline Phosphatase 94 U/L (40-130) 12/28/23 01:09 Ammonia 20 umol/L (16-60) 12/27/23 20:26 NT-Pro-B Natriuret Pep 85480 pg/mL (0-125) H 12/27/23 18:35 Total Protein 7.1 g/dL (6.6-8.7) 12/28/23 01:09 Albumin 3.0 g/dL (3.5-5.2) L 12/28/23 01:09 Globulin 4.1 g/dL (1.3-4.6) 12/28/23 01:09 TSH 1.49 uIU/mL (0.27-4.20) 12/27/23 18:35 Urine Color Yellow (Yellow) 12/27/23 19:01 Urine Appearance Hazy (CLEAR) A 12/27/23 19:01 Urine pH 5 (5-7) 12/27/23 19:01 Ur Specific Sellers 1.015 (1.005-1.030) 12/27/23 19:01 Urine Protein Neg (Negative) 12/27/23 19:01 Urine Glucose (UA) Norm (Normal) 12/27/23 19:01 Urine Ketones Negative (Negative) 12/27/23 19: Urine Blood Neg (Negative) 12/27/23 19:01 Urine Nitrate Positive (Negative) H 12/27/23 19: Urine Bilirubin Neg (Negative) 12/27/23 19:01 Urine Urobilinogen Neg mg/dL (Negative) 12/27/23 19:01 Ur Leukocyte Esterase 1+ (Negative) H 12/27/23 19:01 Urine RBC 0-4 /hpf (0-2) H 12/27/23 19:01 Urine WBC 15-25 /hpf (0-5) H 12/27/23 19:01 Ur Squamous Epith Cells 0-4 /hpf (0-5) H 12/27/23 19:01 Amorphous Sediment 1+ /hpf 12/27/23 19:01 Urine Bacteria 2+ /hpf (NONE) H 12/27/23 19:01 Coarse Granular Casts 5-10 /lpf H 12/27/23 19:01 Urine Mucus Trace /hpf 12/27/23 19:01 Valproic Acid 16.7 ug/mL (50-100) L 12/28/23 01:09 C. difficile (PCR) Negative (Negative) 12/28/23 13:50 Influenza Type A Ag negative (Negative) 12/27/23 00:55 Influenza Type B Ag positive (Negative) H 12/27/23 00:55 SARS-CoV-2 Ag (Rapid) negative (Negative) 12/27/23 00:55 MRSA (PCR) Not detected (NOT DETECTED) 12/28/23 08:30 Vitals Last Vital Signs Temp 98.0 F 12/30/23 07:06 Pulse 89 12/30/23 09:16 Resp 18 12/30/23 09:16 BP 167/88 12/30/23 07:06 Pulse Ox 96 12/30/23 09:16 O2 Del Method Nasal Cannula 12/30/23 09:16 O2 Flow Rate 2 12/30/23 09:16 Discharge Plan Discharge Patient Disposition: Home Condition: Stable Prescriptions: New oseltamivir [Tamiflu] 30 mg Capsule 30 mg PO BID 3 Days Qty: 6 0RF ertapenem 1 gram recon soln 1 g IV DAILY 12 Days Qty: 12 0RF Continued aspirin [Adult Low Dose Aspirin] 81 mg tablet,delayed release (DR/EC) 81 mg PO DAILY@08 dutasteride [Avodart] 0.5 mg capsule 0.5 mg PO BEDTIME esomeprazole magnesium [Nexium] 40 mg capsule,delayed release(DR/EC) 40 mg PO DAILY@08 levetiracetam [Keppra] 500 mg tablet 500 mg PO BID@08,20 tamsulosin [Flomax] 0.4 mg capsule 0.4 mg PO BEDTIME polyethylene glycol 3350 [Miralax] 17 gram/dose powder 17 gm PO DAILY PRN (Reason: Constipation) ipratropium bromide 0.03 % spray,non-aerosol 2 spray intranasal TID PRN (Reason: unknown) Rx Instructions: administer into each nostril lactulose 10 gram/15 mL solution 10 gm PO Q12H PRN (Reason: Constipation) fluticasone propionate 50 mcg/actuation [place],Suspension 1 spray INTRANASAL DAILY@08 gabapentin 300 mg Capsule 300 mg PO DAILY ropinirole 0.25 mg Tablet 0.25 mg PO BEDTIME hydrocodone-acetaminophen 5-325 mg Tablet 1 tab PO Q4H PRN (Reason: Pain) escitalopram oxalate [Lexapro] 10 mg Tablet 10 mg PO DAILY@08 gabapentin 600 mg Tablet 600 mg PO BEDTIME cetirizine 10 mg Tablet 10 mg PO DAILY melatonin 1 mg Tablet 1 mg PO BEDTIME senna 8.6 mg Tablet 8.6 mg PO DAILY PRN (Reason: Constipation) albuterol sulfate 2.5 mg /3 mL (0.083 %) Solution For Nebulization 2.5 mg INHALATION Q4H PRN (Reason: Shortness Of Breath Or Wheezing) Zofran 4 mg Tablet 4 mg PO Q4H PRN (Reason: NAUSEA OR VOMITING) acetaminophen 650 mg Tablet Extended Release 650 mg PO Q4H PRN (Reason: MILD TO MODERATE PAIN OR ELEVATED TEMP) bisacodyl 10 mg Suppository 10 mg [place] DAILY PRN (Reason: Constipation) Selsun Blue Naturals 3 % Shampoo See Rx Instructions .ROUTE .COMPLEX Rx Instructions: APPLY TO SCALP AND HAIR TOPICALLY ON FRIDAY AND FOR DANDRUFF. ipratropium bromide 0.02 % solution See Rx Instructions .ROUTE .COMPLEX Rx Instructions: USE 1 VIAL BY INHALATION 3 TIMED DAILY Ventolin HFA 90 mcg/actuation HFA aerosol inhaler 2 puff inhalation Q4H PRN (Reason: Shortness Of Breath) budesonide 0.5 mg/2 mL suspension for nebulization 0.5 mg inhalation BID mupirocin 2 % Ointment 1 applic TOPICAL BID PRN (Reason: Rash) divalproex 500 mg tablet,delayed release (DR/EC) 500 mg PO TID Discharge Orders: Discharge Order (Routine); Ordered 12/30/23 Ordered By: Gerry Frazier Referrals: Farzad Suh MD [Referring] - 2 weeks David Austin [Primary Care Provider] - Discharge Diet: As Directed Discharge Activity: Resume usual activity Patient Instructions: Opioid Safety Activity Restrictions/Additional Instructions: - Please inject ertapenem 1 g IV every 24 hours for 12 remaining days, midline placed, can be removed thereafter -Recheck CBC and CMP 1 week ? Discharged with Sainz catheter in place, follow-up with urology as outpatient Discharge Attestations Time Spent in Discharge Care*: greater than 30 min Quality Metrics Clinical Quality Measures [ No reported AMI, CVA or VTE this stay] Coding Level of Care Code 35226 Total time (in minutes) for Discharge: 45 Diagnoses Pneumonia J18.9 Dyspnea, unspecified type R06.00 Dyspnea type: unspecified AMS (altered mental status) R41.82 UTI (urinary tract infection) N39.0 Moderate protein-calorie malnutrition E44.0 Muscle wasting M62.50 Physical deconditioning R53.81 Influenza B J10.1 Acute encephalopathy G93.40
[2023-12-30 11:31] VITALS: BP 166/83; PULSE 88; RESP 16; TEMP 36.7; O2SAT 98
[2023-12-30] MEDS: meropenem 500 MG in sodium chloride 0.9% (plus) 50 ML 100 MG IV (11:34)
[2023-12-30] MEDS: tamsulosin 0.4 mg Capsule 0.400000000000000022 MG PO (11:35)
[2023-12-30] MEDS: heparin 5,000 unit/mL INJ 1 mL 5000 UNIT SUBCUT (11:35)
--- NOTE | 2023-12-30 11:47 | PICC.NOTE ---
Midline placed to left basilic vein. Referred to vascular access nurse for midline placement for IV antibiotics x 10-14 days. Risks and benefits discussed and informed consent obtained from patient. Left arm assessed with left basilic vein measuring 3.2 mm, straight, and apparent best choice for placement. Using sterile technique and MST, left basilic vein accessed x 1 stick. Mid-arm circumference measured 10 cm from left AC 21 cm. Trimmed cath 10 cm with 0 cm external length noted. Line secured with stat-lock. Insertion site covered with Biopatch and TSM. Report given to bedside nurseAngel.
[2023-12-30 13:04] VITALS: BP 166/83; PULSE 88; RESP 16; TEMP 36.7; O2SAT 98
== END 2023-12-30 13:04 | disposition skilled nursing facility (03) | DRG 194 ==
LOC: ER 20:19 → MEDSURG 20:41
PROVIDERS: Admitting Provider Student in an Organized Health Care Education/Training Program; Emergency Provider Emergency Medicine; PCP Family Medicine; Visit Provider Family Medicine
DX: J18.9 Pneumonia, unspecified organism (principal); E44.0 Moderate protein-calorie malnutrition; N39.0 Urinary tract infection, site not specified; Z68.1 Body mass index [BMI] 19.9 or less, adult; G93.40 Encephalopathy, unspecified; N17.9 Acute kidney failure, unspecified; M62.50 Muscle wasting and atrophy, not elsewhere classified, unspecified site; R53.81 Other malaise; J10.1 Influenza due to other identified influenza virus with other respiratory manifestations; E86.0 Dehydration; B96.20 Unspecified Escherichia coli [E. coli] as the cause of diseases classified elsewhere; F03.90 Unspecified dementia, unspecified severity, without behavioral disturbance, psychotic disturbance, mood disturbance, and anxiety; F79 Unspecified intellectual disabilities; Z72.0 Tobacco use; Z66 Do not resuscitate; F32.4 Major depressive disorder, single episode, in partial remission; K27.9 Peptic ulcer, site unspecified, unspecified as acute or chronic, without hemorrhage or perforation
CPT/HCPCS: 36415; 36569; 36573; 36600; 51702; 70450; 71045; 76770; 80048; 80053; 80164; 81001; 82140; 82803; 83605; 83735; 83880; 84443; 85025; 85610; 86403; 87040; 87077; 87086; 87186; 87426; 87449; 87493; 87641; 87804; 92610; 93005; 94640; 96365; 96366; 96367; 96372; 97110; 97161; 97165; 97530; 99285; C1751; J0456; J0696; J1644; J2185; J7030; J7050; J7626; Q0144

== ENCOUNTER 2024-02-05 12:09 | Emergency (ER) | payer MEDICARE, MEDICAID, SELFPAY ==
[2024-02-05] VITALS (14 sets, daily range): BP systolic 71–87; BP diastolic 49–61; PULSE 99–121; RESP 7–26; TEMP 36.3; O2SAT 77–89; BMI 20.9
[2024-02-05] MEDS: morphine 4 mg/mL SDV 1 mL IVP ×2 (12:31→13:45)
[2024-02-05] MEDS: LORazepam 2 mg/mL INJ 10 mL MDV 1 MG IVP ×2 (12:31→14:13)
--- NOTE | 2024-02-05 12:58 | PC.NURSE ---
COMFORT CARE PROTOCOL INITIATED. PER WENDY, PATIENT O2 TO BE ON NC AT 4 L NC.
--- NOTE | 2024-02-05 13:15 | ED_ITS ---
HPI - Altered Mental Status General: Chief Complaint: Altered Mental Status Stated Complaint: ftt/resp failure Time Seen by Provider: 02/05/24 12:10 Source: EMS Mode of arrival: EMS Limitations: altered mental status History of Present Illness: 73-year-old male is here from [facility] patient's been unresponsive during the day along with respiratory distress per EMS he supposed to be on comfort care unable to get any history from patient due to him being unresponsive Review of Systems General: Reports: ROS unobtainable due to mental status PFSH ED PFSH: Medical History (Updated 02/05/24 @ 12:37 by Anastacia Thornton MD) Influenza B Recurrent aspiration pneumonia Dementia Aspiration pneumonia Dysphagia COPD (chronic obstructive pulmonary disease) Chronic kidney disease Peptic ulcer disease Vitamin D deficiency Hypertension Hydronephrosis Iron deficiency anemia Small bowel obstruction Pyuria Neurogenic bladder Renal mass, right Bilateral hydronephrosis Major depressive disorder, recurrent episode, in partial remission with anxious distress Major depressive disorder, recurrent, in partial remission Surgical History History of esophagogastroduodenoscopy (EGD) Hx of appendectomy History of colostomy reversal History of total left hip replacement History of transurethral resection of prostate Family History Father , AT AGE 49 [place] No problems noted. Mother , AT AGE 58 [place] No problems noted. Sister Cancer STOMACH Social History Smoking and tobacco/nicotine status: current some day tobacco/nicotine user cigarettes [ Other cigarette details: 6yr hx] Quit status (tobacco/nicotine): not considering quitting Second hand smoke exposure: Yes Alcohol intake: former Substance/Drug Use: never Adopted: No Caregiver/support person: No Lives independently: No Housing: Detention Marital status: Single service: No Current occupational status: disabled Pets and animals: Yes Do you think of yourself as: Straight/Heterosexual Current gender identity: Male Physical Exam Const: COMMON NORMALS: negative for patient oriented x3 HENMT: COMMON NORMALS: normocephalic and atraumatic HEAD & SCALP: normocephalic and atraumatic Eye: COMMON NORMALS: Equal, round and reactive pupils present and EOMs intact bilaterally PUPIL: Yes Equal, round and reactive pupils present Neck/C-Spine: COMMON NORMALS: full ROM and supple Chest: COMMONS NORMALS: normal inspection of the chest Resp: EFFORT & INSPECTION: Yes respiratory distress AUSCULTATION: rales Cardio: COMMON NORMALS: regular rate, regular rhythm and No murmurs present (Cardio) RATE: regular rate RHYTHM: regular rhythm Extremity: COMMON NORMALS: normal to inspection and full ROM Neuro: COMMON NORMALS: negative for patient oriented x3 Psych: COMMON NORMALS: negative for mental status grossly normal Skin: COMMON NORMALS: no rashes or lesions noted and no wounds GENERAL SKIN EXAM: no rashes or lesions noted Course Vital Signs: Vital signs: Vital Signs Temperature 97.4 F L 02/05/24 12:10 Pulse Rate 121 H 02/05/24 15:15 Respiratory Rate 14 02/05/24 15:15 Blood Pressure 73/51 02/05/24 15:15 Pulse Oximetry 87 L 02/05/24 15:15 Oxygen Delivery Me thod Nasal Cannula 02/05/24 13:15 Oxygen Flow Rate 4 02/05/24 13:15 MDM - Altered Mental Status Medical Decision Making Patient presents here with altered mental status along with hypoxia I did speak to his guardian he states that she wants to place him on comfort care. After speaking to her and prison we will [facility] on comfort [facility]. Medical Records I reviewed the patient's medical records. No radiology studies performed this visit Discharge Plan Discharge Patient Disposition: Home Clinical Impression: Acute respiratory failure with hypoxia Condition: Stable Prescriptions: No Action aspirin [Adult Low Dose Aspirin] 81 mg tablet,delayed release (DR/EC) 81 mg PO DAILY@08 dutasteride [Avodart] 0.5 mg capsule 0.5 mg PO BEDTIME esomeprazole magnesium [Nexium] 40 mg capsule,delayed release(DR/EC) 40 mg PO DAILY@08 levetiracetam [Keppra] 500 mg tablet 500 mg PO BID@08,20 tamsulosin [Flomax] 0.4 mg capsule 0.4 mg PO BEDTIME polyethylene glycol 3350 [Miralax] 17 gram/dose powder 17 gm PO DAILY PRN (Reason: Constipation) ipratropium bromide 0.03 % spray,non-aerosol 2 spray intranasal TID PRN (Reason: unknown) Rx Instructions: administer into each nostril lactulose 10 gram/15 mL solution 10 gm PO Q12H PRN (Reason: Constipation) fluticasone propionate 50 mcg/actuation [place],Suspension 1 spray INTRANASAL DAILY@08 gabapentin 300 mg Capsule 300 mg PO DAILY ropinirole 0.25 mg Tablet 0.25 mg PO BEDTIME hydrocodone-acetaminophen 5-325 mg Tablet 1 tab PO Q4H PRN (Reason: Pain) escitalopram oxalate [Lexapro] 10 mg Tablet 10 mg PO DAILY@08 gabapentin 600 mg Tablet 600 mg PO BEDTIME cetirizine 10 mg Tablet 10 mg PO DAILY melatonin 1 mg Tablet 1 mg PO BEDTIME senna 8.6 mg Tablet 8.6 mg PO DAILY PRN (Reason: Constipation) albuterol sulfate 2.5 mg /3 mL (0.083 %) Solution For Nebulization 2.5 mg INHALATION Q4H PRN (Reason: Shortness Of Breath Or Wheezing) ondansetron HCl 4 mg Tablet 4 mg PO Q4H PRN (Reason: NAUSEA OR VOMITING) acetaminophen 650 mg Tablet Extended Release 650 mg PO Q4H PRN (Reason: MILD TO MODERATE PAIN OR ELEVATED TEMP) bisacodyl 10 mg Suppository 10 mg [place] DAILY PRN (Reason: Constipation) Selsun Blue Naturals 3 % Shampoo See Rx Instructions .ROUTE .COMPLEX Rx Instructions: APPLY TO SCALP AND HAIR TOPICALLY ON FRIDAY AND FOR DANDRUFF. ipratropium bromide 0.02 % solution See Rx Instructions .ROUTE .COMPLEX Rx Instructions: USE 1 VIAL BY INHALATION 3 TIMED DAILY Ventolin HFA 90 mcg/actuation HFA aerosol inhaler 2 puff inhalation Q4H PRN (Reason: Shortness Of Breath) budesonide 0.5 mg/2 mL suspension for nebulization 0.5 mg inhalation BID mupirocin 2 % Ointment 1 applic TOPICAL BID PRN (Reason: Rash) divalproex 500 mg tablet,delayed release (DR/EC) 500 mg PO TID Discharge Orders: Discharge ED (Routine); Ordered 02/05/24 Ordered By: Anastacia Thornton Referrals: David Austin [Primary Care Provider] - Discharge Diet: Advance as tolerated Discharge Activity: Resume usual activity Patient Instructions: Altered Mental Status (ED) Coding Level of Care Code ED Joss House Keeper for Inag Jerry
--- NOTE | 2024-02-05 13:17 | PC.NURSE ---
PATIENT TITRATION TO COMFORT CARE PROTOCOLS. PATIENT O2 TITRATED TO 3 L NC.
--- NOTE | 2024-02-05 13:44 | PC.NURSE ---
PER PROTOCOL, LOWERED PATIENT TO 2L O2 NASAL CANNULA.
== END 2024-02-05 15:44 | disposition home or self-care (01) ==
PROVIDERS: Emergency Provider Emergency Medicine; PCP Family Medicine
DX: J96.01 Acute respiratory failure with hypoxia (principal); Z79.82 Long term (current) use of aspirin; F17.210 Nicotine dependence, cigarettes, uncomplicated; F03.90 Unspecified dementia, unspecified severity, without behavioral disturbance, psychotic disturbance, mood disturbance, and anxiety; J44.9 Chronic obstructive pulmonary disease, unspecified; I12.9 Hypertensive chronic kidney disease with stage 1 through stage 4 chronic kidney disease, or unspecified chronic kidney disease; N18.9 Chronic kidney disease, unspecified
CPT/HCPCS: 96374; 96375; 96376; 99284; J2060; J2270